=== PATIENT | male | born 1945 | race Caucasian/White ===

== ENCOUNTER 2023-05-26 13:48 | Emergency (ER) | payer MEDICARE, SELFPAY ==
--- NOTE | 2023-05-26 13:57 | XR_ITS ---
[facility] [id number] Patient Name: OLMAN ROYAL MRN: [id number] date: 1945 Sex: M Assigned Patient Location: ER Current Patient Location: ER Accession/Order Number: [id number] Exam Date: 05/26/2023 14:06 Report Date: 05/26/2023 14:40 At the request of: VIRGIL SNYDER Procedure: XR hand LT min 3V STUDY: XR hand LT min 3V, [id number] HISTORY: puncture wound COMPARISON: None FINDINGS: No acute fracture, dislocation, or suspicious osseous lesion. BB-marker projects over the first metacarpal. No associated osseous abnormality or radiopaque foreign body. Severe osteoarthritis of the first carpometacarpal joint. 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 XR/XR hand LT min 3V IMPRESSION: No acute osseous abnormality. Electronically authenticated by: NONI ESTES Date: 05/26/2023 14:40
[2023-05-26 13:59] VITALS: BP 180/69; PULSE 85; RESP 18; TEMP 36.8; O2SAT 98; BMI 25.9
--- NOTE | 2023-05-26 15:35 | ED.WOUNDLAC1 ---
HPI - Wound/Laceration General Chief Complaint: Wound/Laceration Stated Complaint: LACERATION, LEFT HAND Time Seen by Provider: 05/26/23 13:57 Source: patient Mode of arrival: walk-in Limitations: no limitations History of Present Illness HPI narrative: 77-year-old male presents for puncture wound to the palm of his left hand. He was using a power drill and the drill slipped and the drill bit went into the palm of his hand. This happened a few hours ago. He has some slight numbness on the ulnar side of his ring finger. It was not like that initially. No other injury was sustained. The pain is mild to moderate. Related Data Previous Rx's Medication Instructions Recorded amoxicillin 875 mg-potassium 1 tab PO BID #20 tabs 05/26/23 clavulanate 125 mg tablet Allergies Allergy/AdvReac Type Severity Reaction Status Date / Time No Known Drug Allergies Allergy Verified 05/26/23 13:58 Review of Systems ROS Narrative A ten point review of systems is negative except as noted above. PFSH PFS Social History Smoking status: Current every day smoker Exam Narrative Exam Narrative: Nurses note and vital signs reviewed and patient is not hypoxic. General: The patient appears well and in no apparent distress. Patient is resting comfortably on cart. Skin: Warm, dry, no pallor noted. There is no rash noted. Head: Normocephalic, atraumatic Eye: Normal conjunctiva, no drainage Ears, Nose, Mouth, and Throat: oral mucosa is moist. Nares patent. Mouth without vesicles. Cardiovascular: Regular Rate and Rhythm Respiratory: Patient is in no distress, no accessory muscle use, lungs are clear to auscultation, no wheezing, rales or rhonchi Back: non-tender GI: nontender Musculoskeletal: puncture wound present on the ulnar his left hand proximally just medial to the hypothenar eminence. Fingers have full range of motion and wrist is nontender and has full range of motion. Neurological: A&O, normal speech Psychiatric: Cooperative Constitutional Vital Signs, click to edit/add: Last Vital Signs Temp 98.2 F 05/26/23 13:59 Pulse 85 05/26/23 13:59 Resp 18 05/26/23 13:59 BP 180/69 H 05/26/23 13:59 Pulse Ox 98 05/26/23 13:59 O2 Del Method Room Air 05/26/23 13:59 Course Vital Signs Vital signs: Vital Signs Temperature 98.2 F 05/26/23 13:59 Pulse Rate 85 05/26/23 13:59 Respiratory Rate 18 05/26/23 13:59 Blood Pressure 180/69 H 05/26/23 13:59 Pulse Oximetry 98 05/26/23 13:59 Oxygen Delivery Method Room Air 05/26/23 13:59 Temperature 98.2 F 05/26/23 13:59 Pulse Rate 85 05/26/23 13:59 Respiratory Rate 18 05/26/23 13:59 Blood Pressure 180/69 H 05/26/23 13:59 Pulse Oximetry 98 05/26/23 13:59 Oxygen Delivery Method Room Air 05/26/23 13:59 MDM - Wound/Laceration MDM Narrative Medical decision making narrative: puncture wound identified with negative x-ray. Tetanus is updated and he is prescribed Augmentin. He will watch for signs of an infection. He was advised that the numbness in the ring finger will likely subside but he'll follow-up with his doctor. Treatment diagnosis and follow-up were discussed with the patient. Differential Diagnosis Differential diagnosis: Likely laceration and other (puncture wound, fracture) Imaging Data left hand: Radiologist's impression: Procedure: XR hand LT min 3V STUDY: XR hand LT min 3V, [id number] HISTORY: puncture wound COMPARISON: None FINDINGS: No acute fracture, dislocation, or suspicious osseous lesion. BB-marker projects over the first metacarpal. No associated osseous abnormality or radiopaque foreign body. Severe osteoarthritis of the first carpometacarpal joint. 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 IMPRESSION: No acute osseous abnormality. Electronically authenticated by: NONI ESTES Date: 05/26/2023 14:40 Discharge Plan Discharge Chief Complaint: Wound/Laceration Clinical Impression: Puncture wound Patient Disposition: Home, Self-Care Time of Disposition Decision: 15:33 Condition: Good Mode of Transportation: Private Vehicle Prescriptions / Home Meds: New amoxicillin-pot clavulanate 875-125 mg tablet 1 tab PO BID Qty: 20 0RF Instructions: Puncture Wound (ED) Stand Alone Forms: Portal Instructions Referrals: Dallin Pace DO [Primary Care Provider] - 1 week
[2023-05-26] MEDS: ADACEL DIPH,PERTUSS(ACELL),TET VAC/PF 0.5 ML ADULT SYRINGE IM (15:44)
--- NOTE | 2023-05-26 15:59 | PC.NURSE ---
Addendum entered by Lakia Armas 05/26/23 16:01: unknown when last tetnus is. patient has slight numbess to finger. warm. cap refill 2 seconds. Original Note: Patient was putting nails into a piece of wood when he slipped and the drill bit when into his left palm. fatty tissue can be seen. patient states he immediatly washed it with soap and water. no
== END 2023-05-26 16:04 | disposition home or self-care (01) ==
PROVIDERS: Emergency Provider Emergency Medicine; PCP Internal Medicine
DX: S61.432A Puncture wound without foreign body of left hand, initial encounter (principal); Z23 Encounter for immunization; W29.8XXA Contact with other powered hand tools and household machinery, initial encounter; F17.210 Nicotine dependence, cigarettes, uncomplicated
CPT/HCPCS: 73130; 90471; 90715; 99283

== ENCOUNTER 2023-07-15 09:16 | Outpatient (OUT) | payer MEDICARE, SELFPAY ==
[2023-07-15 10:14] LABS: Estimated Average Glucose 177 mg/dL; Glycohemoglobin A1C 7.8 % (4.5-6.2)
== END 2023-07-15 09:17 | disposition home or self-care (01) ==
LOC: LAB 09:17
PROVIDERS: PCP Internal Medicine; Visit Provider Internal Medicine
DX: E11.65 Type 2 diabetes mellitus with hyperglycemia (principal)
CPT/HCPCS: 36415; 83036

== ENCOUNTER 2024-01-15 08:37 | Outpatient (OUT) | payer MEDICARE, SELFPAY ==
[2024-01-15 08:57] LABS: Basophils Absolute Auto 0.1 10^3/uL (0.0-0.1); Basophils Percent Auto 1.1 % (0.2-2.0); Eosinophils Absolute Auto 0.3 10^3/uL (0.0-0.7); Eosinophils Percent Auto 4.5 % (0.9-7.0); Hematocrit 37.7 % (42.0-54.0); Hemoglobin 12.1 g/dL (14.0-18.0); Lymphocytes Absolute Auto 2.2 10^3/uL (1.2-3.8); Lymphocytes Percent Auto 33.8 % (20.5-60.0); Mean Corpuscular HGB Conc 32.1 g/dL (29.9-35.2); Mean Corpuscular Hemoglobin 31.2 pg (25.9-34.0); Mean Corpuscular Volume 97.2 fL (80.0-94.0); Mean Platelet Volume 11.1 fL (9.5-13.5); Monocytes Absolute Auto 0.7 10^3/uL (0.3-0.8); Monocytes Percent Auto 10.2 % (1.7-12.0); Neutrophils Absolute Auto 3.3 10^3/uL (1.4-6.5); Neutrophils Percent Auto 50.4 % (43.0-75.0); Platelet Count 158 10^3/uL (150-450); Red Blood Count 3.88 10^6/uL (4.70-6.10); Red Cell Distribution Width 12.7 % (11.0-15.0); White Blood Count 6.5 10^3/uL (4.0-11.0)
[2024-01-15 09:28] LABS: Creatinine Urine Random 209.77 mg/dL (20.00-300.00); Microalbum Creatinine Ratio Ur 18.5 mg/g (0.0-29.9); Microalbumin Urine Random 3.9 mg/dL (<=30.0)
[2024-01-15 09:34] LABS: Alanine Aminotransferase 31 U/L (16-63); Albumin Globulin Ratio 0.9; Albumin Level 3.5 g/dL (3.4-5.0); Alkaline Phosphatase 113 U/L (46-116); Anion Gap 13.3; Aspartate Amino Transferase 25 U/L (15-37); BUN Creatinine Ratio 25.2; Bilirubin Total 0.5 mg/dL (0.2-1.0); Calcium 8.9 mg/dL (8.5-10.1); Carbon Dioxide 25.3 mmol/L (21.0-32.0); Chloride 104 mmol/L (98-107); Cholesterol 160 mg/dL (<=200); Estimated GFR (African America >60 (>=60); Estimated GFR (Non-African Ame 51 (>=60); Glucose 129 mg/dL (74-106); HDL Cholesterol 40 mg/dL (40-60); Potassium 4.6 mmol/L (3.5-5.1); Sodium 138 mmol/L (136-145); Total Protein 7.5 g/dL (6.4-8.2); Triglycerides 183 mg/dL (<=150); VLDL CHOLESTEROL 36.6 mg/dL
[2024-01-15 10:43] LABS: Estimated Average Glucose 183 mg/dL
[2024-01-15 10:52] LABS: Prostate Specific Antigen Scrn 2.25 ng/mL (<=4.00)
== END 2024-01-15 08:38 | disposition home or self-care (01) ==
LOC: LAB 08:37
PROVIDERS: PCP Internal Medicine; Visit Provider Internal Medicine
DX: I25.10 Atherosclerotic heart disease of native coronary artery without angina pectoris (principal); I10 Essential (primary) hypertension; E78.00 Pure hypercholesterolemia, unspecified; E11.65 Type 2 diabetes mellitus with hyperglycemia; Z12.5 Encounter for screening for malignant neoplasm of prostate
CPT/HCPCS: 36415; 80053; 80061; 82043; 82570; 83036; 85025; G0103

== ENCOUNTER 2024-07-26 12:03 | Outpatient (OUT) | payer MEDICARE, SELFPAY ==
--- OUTSIDE RECORDS SUMMARY | 2024-07-26 12:27 | XMS_ITS | CCD ---
Author Organization [facility] Team Providers Care Extrusion Supervisor Name Role Phone DALLIN PACE Primary Care Physician Dallin Pace Unavailable SANJEEV, DR ZAMARRIPA Admitting Unavailable SANJEEV, DR ZAMARRIPA Attending Unavailable SANJEEV, DR ZAMARRIPA Primary Care Unavailable SANJEEV, DR ZAMARRIPA Consulting Unavailable SANJEEV, DR ZAMARRIPA Primary Care Unavailable SANJEEV, DR ZAMARRIPA Admitting Unavailable SANJEEV, DR ZAMARRIPA Attending Unavailable SANJEEV, DR ZAMARRIPA Consulting Unavailable SANJEEV, DR ZAMARRIPA Admitting Unavailable SANJEEV, DR ZAMARRIPA Attending Unavailable SANJEEV, DR ZAMARRIPA Primary Care Unavailable SANJEEV, DR ZAMARRIPA Consulting Unavailable MACARENA, DR SHILPI Katz Consulting Unavailable SANJEEV, DR ZAMARRIPA Admitting Unavailable SANJEEV, DR ZAMARRIPA Attending Unavailable SANJEEV, DR ZAMARRIPA Primary Care Unavailable SANJEEV, DR ZAMARRIPA Consulting Unavailable Dallin Pace E Unavailable Unavailable Unavailable Dr. Jeyson Huang Referring Unavailable Sal, Dr. Watkins Attending Unavailable Sanjeev, Dr. Dallin Goode Primary Care UnaDallin Trammell DO Primary Care Provider DALLIN Rondon Primary Care Unavailable JEYSON HUANG Referring Unavailable JEYSON HUANG Referring Unavailable DALLIN PACE Primary Care Unavailable JEYSON HUANG Referring Unavailable DALLIN PACE Primary Care Unavailable JEYSON HUANG Referring Unavailable DALLIN PACE Primary Care Unavailable JEYSON HUANG Referring Unavailable DALLIN PACE Primary Care Unavailable JEYSON HUANG Referring Unavailable DALLIN PACE Primary Care Unavailable JEYSON HUANG Attending Unavailable DALLIN PACE Primary Care Unavailable Dallin Pace Primary Care Unavailable Ruy Macias Attending Unavailable Ruy Macias Admitting Unavailable Medications Current Medications Medication Drug Class(es) Dates Sig (Normalized) Sig (Original) Accu-Chek Advantage Meter (7 sources) Start: 12-10-2022 Accu-Chek Advantage Meter Dec, Active [id number] 200 actuat albuterol 0.09 mg/actuat metered dose inhaler (12 sources) beta2-Adrenergic Agonist Start: 02-27-2024 Albuterol Sulfate 90 mcg/actuation HFA aerosol inhaler Active 0 .ROUTE .COMPLEX 51 February 27, 2024 6:27am USE 2 INHALATIONS BY MOUTH EVERY 4 HOURS NEEDED Start: 02-27-2024 Albuterol Sulf ate Active 0 .ROUTE .COMPLEX 51 February 27, 2024 7:27am USE 2 INHALATIONS BY MOUTH EVERY 4 HOURS NEEDED Start: 01-20-2024 End: 02-27-2024 take 1 puff(s) by inhalation every four hours as needed Albuterol Sulfate 90 mcg/actuation HFA aerosol inhaler Discontinued 2 PUFF INHALATION Every 4 hours as needed January 19, 2024 11:00pm February 27, 2024 6:27am Start: 10-06-2023 take 2 puff(s) by in halation every four hours as needed Albuterol Sulfate HFA 108 (90 Base) MCG/ACT 2 puffs as needed Inhalation every 4 hrs for 90 days Sep, Active albuterol HFA 90 mcg/inh MDI (1 source) Start: 12-07-2021 take 2 puff(s) by inhalation every four hours as needed for wheezing albuterol HFA 90 mcg/inh MDI 2 puff(s), Inhalation, q4hr as needed for wheezing, Refill(s) 0 Start Date: 12/07/21 Status: Ordered aspirin 81 mg chewable tablet (8 sources) Platelet Aggregation Inhibitor, Nonsteroidal Anti-inflammatory Drug Start: 06-01-2024 take 1 tablet by mouth once daily Aspirin 81 mg tablet,chewable Active 81 MG PO Daily May 31, 2024 11:00pm Start: 12-12-2021 take 1 tablet by patrice th once daily aspirin 81 mg Oral EC Tab 81 mg = 1 tab(s), Oral, Daily, Refills(s) 0 Start Date: 12/12/21 Status: Ordered take 1 tablet by patrice th once daily Aspirin 81 MG Oral Tablet Delayed Release TAKE 1 TABLET DAILY. Quantity: 90 Refills: 0 Ordered: 05-May-2023 DO Active atorvastatin 40 mg oral tablet (20 sources) HMG-CoA Reductase Inhibitor Start: 11-06-2023 take 1 tablet by mouth once daily Atorvastatin 40 mg tablet Active 0 .ROUTE .COMPLEX 90 November 06, 2023 7:11pm TAKE 1 TABLET BY MOUTH DAILY Start: 11-06-2023 End: 11-06-2023 take 1 tablet by mouth once daily Atorvastatin 40 mg tablet Discontinued 40 MG PO Daily November 06, 2023 12:00am November 06, 2023 7:11pm Start: 12-07-2021 take 1 tablet by patrice th once daily Lipitor 40 mg Tab 40 mg = 1 tab(s), Oral, Daily, Refills(s) 0 Start Date: 12/07/21 Status: Ordered Flonase 0.05 mg/inh nasal spray (1 source) Start: 12-07-2021 Flonase 0.05 m g/inh nasal spray 2 spray(s), Nasal, Daily, Refill(s) 0 Start Date: 12/07/21 Status: Ordered fluticasone propionate 0.05 mg/actuat metered dose nasal spray (19 sources) Corticosteroid Start: 01-20-2024 Fluticasone Pr opionate 50 mcg/actuation spray,suspension Active 1 SPRAY INTRANASAL Daily January 19, 2024 11:00pm take 1 spray(s) nasal route once daily Fluticasone Propionate 50 MCG/ACT 1 spray in each nostril Nasally Once a day for 90 days Active take 1 spray(s) nasal route once daily Fluticasone Propionate 50 MCG/ACT 1 spray in each nostril Nasally Once a day Active take 2 spray(s) nasal route once daily Flonase Allergy Relief 50 MCG/ACT Nasal Suspension USE 2 SPRAYS IN EACH NOSTRIL ONCE DAILY Quantity: 0 Refills: 0 Ordered: 05-May-2023 DO Active Insulin Lispro (1 source) Insulin Analog Start: 12-07-2021 Humalog Mix 75 /25 See Instructions, Refill(s) 0, 60 units before breakfast and 48 units before dinner Start Date: 12/07/21 Status: Ordered insulin lispro 25 unt/ml / insulin lispro protamine, human 75 unt/ml injectable suspension (20 sources) Insulin Analog Start: 01-20-2024 End: 03-01-2024 Insulin Lispro Protamin-Lispro (Humalog Mix 75-25(U-100)Insuln) 100 unit/mL (75-25) suspension Active 0 .ROUTE .COMPLEX 100 March 01, 2024 5:49am INJECT 60 UNITS SUBCUTANEOUSLY BEFORE BREAKFAST AND 48 UNITS BEFORE EVENING MEAL HumaLOG Mix 75/2 5 (75-25) 100 UNIT/ML INJECT 60 UNITS UNDER THE SKIN BEFORE BREAKFAST AND 48 UNITS BEFORE EVENING MEAL Active HumaLOG Mix 75/2 5 KwikPen (75-25) 100 UNIT/ML Subcutaneous Suspension Pen-injector USE DIRECTED. Quantity: 0 Refills: 0 Ordered: 05-May-2023 DO Active lisinopril 20 mg oral tablet (20 sources) Angiotensin Converting Enzyme Inhibitor Start: 11-06-2023 take 1 tablet by mouth once daily Lisinopril 20 mg tablet Active 0 .ROUTE .COMPLEX 90 November 06, 2023 7:11pm TAKE 1 TABLET BY MOUTH DAILY Start: 11-06-2023 End: 11-06-2023 take 1 tablet by mouth once daily Lisinopril 20 mg tablet Discontinued 20 MG PO Daily November 06, 2023 12:00am November 06, 2023 7:11pm Start: 12-07-2021 take 1 tablet by patrice th once daily lisinopril 20 mg Tab 20 mg = 1 tab(s), Oral, Daily, Refills(s) 0 Start Date: 12/07/21 Status: Ordered metFORMIN hydrochloride 1000 mg oral tablet (20 sources) Biguanide Start: 07-10-2024 take 1 tablet by mouth twice daily Metformin 1,000 mg tablet Active 0 .ROUTE .COMPLEX 180 July 10, 2024 6:50am TAKE 1 TABLET BY MOUTH TWICE DAILY Start: 01-20-2024 End: 07-10-2024 take 1 tablet by mouth twice daily Metformin 1,000 mg tablet Discontinued 1000 MG PO Twice daily January 19, 2024 11:00pm July 10, 2024 6:50am Start: 12-07-2021 take 1 tablet by patrice th twice daily metformin 1000 mg oral tablet 1,000 mg = 1 tab(s), Oral, BID, Refills(s) 0 Start Date: 12/07/21 Status: Ordered metoprolol tartrate 50 mg oral tablet (20 sources) beta-Adrenergic Nery Start: 07-10-2024 take 1 tablet by mouth twice daily at mealtime Metoprolol Tartrate 50 mg tablet Active 0 .ROUTE .COMPLEX 180 July 10, 2024 6:50am TAKE 1 TABLET BY MOUTH TWICE DAILY WITH FOOD Start: 01-20-2024 End: 07-10-2024 take 1 tablet by mouth twice daily Metoprolol Tartrate 50 mg tablet Discontinued 50 MG PO Twice daily January 19, 2024 11:00pm July 10, 2024 6:50am Start: 12-07-2021 take 1 tablet by [facility] every twelve hours Metoprolol Tartrate 50 MG 1 tablet with food Orally Twice a day Sep, Active omeprazole 40 mg Cap-DR (1 source) Start: 12-07-2021 take 1 capsule by mouth once daily omeprazole 40 mg Cap-DR 40 mg = 1 cap(s), Oral, Daily, Refills(s) 0 Start Date: 12/07/21 Status: Ordered Omeprazole 40 mg capsule,delayed release(DR/EC) (1 source) Start: 07-10-2024 take 1 capsule by mouth once daily before breakfast Omeprazole 40 mg capsule,delayed release(DR/EC) Active 0 .ROUTE .COMPLEX July 10, 2024 6:50am TAKE 1 CAPSULE BY MOUTH ONCE DAILY 1/2 HOUR BEFORE BREAKFAST tamsulosin hydrochloride 0.4 mg oral capsule (20 sources) alpha-Adrenerg ic Nery Start: 10-29-2023 End: 10-29-2023 take 1 capsule by mouth once daily Tamsulosin 0.4 mg capsule Active 0.4 MG PO Daily 90 October 29, 2023 1:21pm Start: 12-07-2021 take [address] capsule [address] [facility] every twenty-four hours Tamsulosin HCl 0.4 MG 1 capsule Orally Once a day for 90 days Sep, Active Vitamin D 1000 intl units (25 mcg) Tab (1 source) Start: 12-12-2021 take 1 tablet by mouth once daily Vitamin D 1000 intl units (25 mcg) Tab 25 mcg = 1 tab(s), Oral, Daily, Refills(s) 0 Start Date: 12/12/21 Status: Ordered Completed/Discontinued Medications Medication Drug Class(es) Dates Sig (Normalized) Sig (Original) amLODIPine 5 mg oral tablet (20 sources) Dihydropyridine Calcium Channel Nery Start: 11-06-2023 End: 06-01-2024 take 1 tablet by mouth once daily Amlodipine 5 mg tablet Discontinued 0 .ROUTE .COMPLEX 90 November 06, 2023 7:11pm June 01, 2024 8:46am TAKE 1 TABLET BY MOUTH DAILY Start: 11-06-2023 End: 11-06-2023 take 1 tablet by mouth once daily Amlodipine 5 mg tablet Discontinued 5 MG PO Daily November 06, 2023 12:00am November 06, 2023 7:11pm Start: 12-07-2021 [facility] amL[facility]ine 5 mg Tab 5 mg = 1 tab(s), Oral, Daily, Refills(s) 0 Start Date: 12/07/21 Status: Ordered cholecalciferol 0.025 mg oral capsule (3 sources) Vitamin D take 1 capsule by mouth once daily Vitamin D3 1000 UNIT Oral Capsule TAKE 1 CAPSULE BY MOUTH ONCE A DAY Quantity: 0 Refills: 0 Ordered: 05-May-2023 DO Active docosahexaenoic acid 120 mg / eicosapentaenoic acid 180 mg oral capsule (3 sources) take 1 capsule by mouth once daily [place]-3 Fish Oil 1000 MG Oral Capsule TAKE 1 CAPSULE Daily Quantity: 0 Refills: 0 Ordered: 05-May-2023 DO Active ferrous sulfate 325 mg oral tablet (3 sources) take 1 tablet by mouth once daily Ferrous Sulfate 325 (65 Fe) MG Oral Tablet TAKE 1 TABLET BY MOUTH EVERY DAY Quantity: 90 Refills: 0 Ordered: 05-May-2023 DO Active Magnesium (3 sources) Magnesium 500 MG TABS one daily Quantity: 0 Refills: 0 Ordered: 05-May-2023 DO Active omeprazole 40 mg delayed release oral capsule (19 sources) Proton Pump Inhibitor Start: 01-20-20 End: 07-10-20 24 take 1 capsule by mouth once daily Omeprazole 40 mg capsule,delayed release(DR/EC) Discontinued 40 MG PO Daily January 19, 2024 11:00pm July 10, 2024 6:50am Start: 09-12-2022 take 1 capsule by mo [facility] once daily Omeprazole 40 MG 1 capsule 30 minutes before morning meal Orally Once a day Sep, Active potassium 99 mg extended release oral tablet (3 sources) take 1 tablet by mouth once daily Potassium 99 MG Oral Tablet TAKE 1 TABLET DAILY. Quantity: 0 Refills: 0 Ordered: 05-May-2023 DO Active ubidecarenone 200 mg oral capsule (3 sources) take 1 capsule by mouth once daily CoQ10 200 MG Oral Capsule TAKE ONE SOFTGEL BY MOUTH ONCE DAILY Quantity: 90 Refills: 3 Ordered: 05-May-2023 DO Active vitamin b12 1 mg extended release oral tablet (3 sources) Vitamin B12 take 1 tablet by mouth once daily Vitamin B12 1000 MCG Oral Tablet Extended Release TAKE 1 TABLET DAILY DIRECTED. Quantity: 0 Refills: 0 Ordered: 05-May-2023 DO Active Vitamin C TABS (3 sources) Vitamin C TABS T JOYCE 1 TABLET DAILY. Quantity: 0 Refills: 0 Ordered: 05-May-2023 DO Active zinc gluconate 50 mg oral tablet (3 sources) take 1 tablet by mouth once daily Zinc 50 MG Oral Tablet TAKE 1 TABLET DAILY. Quantity: 0 Refills: 0 Ordered: 05-May-2023 DO Active Problems Active Problems Problem Classification Problem Date Documented Da te Episodic/Chronic Aortic; peripheral; and visceral artery aneurysms (20 sources) Abdominal aortic aneurysm; Translations: [Aneurysm of infrarenal abdominal aorta ] Onset: 04-20-2022 12-07-2021 Chronic Comment on above: Abdominal US: 2.9cm - 06/2024 Asthma (16 sources) Asthma; Translations: [Mild intermittent asthma] Onset: 07-02-2023 12-07-2021 Chronic Chronic kidney disease (2 sources) Chronic kidney disease; Translations: [Chronic kidney disease, unspecified] 07-26-2024 Chronic Chronic kidney disease (2 sources) Chronic kidney disease; Translations: [Chronic kidney disease, stage 3a (Multi)] Onset: 04-26-2024 Conditions associated with dizziness or vertigo (4 sources) Dizziness and giddiness; Translations: [Dizziness and giddiness] Onset: 04-26-2024 Episodic Coronary atherosclerosis and other heart disease (20 sources) Coronary arteriosclerosis; Translations: [Atherosclerotic heart disease of [place] coronary artery without angina pectoris] Onset: 02-27-2019 12-07-2021 Chronic Deficiency and other anemia (4 sources) Pernicious anemia; Translations: [Vitamin B12 deficiency anemia due to intrinsic factor deficiency] Onset: 07-02-2023 12-07-2021 Episodic Deficiency and other anemia (12 sources) Anemia; Translations: [Anemia, unspecified] Episodic Diabetes mellitus with complications (20 sources) Type 2 diabetes mellitus; Translations: [Type 2 diabetes mellitus with diabetic polyneuropathy] Onset: 01-15-2023 Chronic Diabetes mellitus without complication (18 sources) Diabetes mellitus; Translations: [Type 2 diabetes mellitus] Onset: 12-29-2019 12-07-2021 Chronic Disorders of lipid metabolism (20 sources) Pure hypercholesterolemi a; Translations: [Pure hypercholesterolemi a, unspecified] Onset: 12-29-2019 12-07-2021 Chronic Esophageal disorders (12 sources) Gastro-esophageal reflux disease with esophagitis; Translations: [Gastroesophageal reflux disease] Onset: 07-02-2023 12-07-2021 Chronic Esophageal disorders (11 sources) Esophageal disorders; Translations: [Gastroesophageal reflux disease with esophagitis without hemorrhage] Onset: 07-02-2023 Essential hypertension (20 sources) Hypertensive disorder; Translations: [Essential hypertension] Onset: 02-27-2019 12-07-2021 Chronic Genitourinary symptoms and ill-defined conditions (14 sources) Polyuria; Translations: [Polyuria] Episodic Hyperplasia of prostate (17 sources) Nocturia due to benign prostatic hypertrophy; Translations: [Lower urinary tract symptoms due to benign prostatic hypertrophy] Onset: 07-02-2023 12-07-2021 Chronic Occlusion or stenosis of precerebral arteries (7 sources) Bilateral carotid artery occlusion; Translations: [Occlusion and stenosis of bilateral carotid arteries] 06-01-2024 Chronic Comment on above: Carotid US: right 50 -69%, left <50% - 05/2024 Other aftercare (12 sources) Long-term current use of insulin; Translations: [steam hand (current) use of insulin] Episodic Other aftercare (6 sources) half-way (current) use of insulin; Translations: [TORPEDO MAN 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 INSULIN] Onset: 09-04-2022 Episodic Other aftercare (2 sources) Long-term current use of drug therapy; Translations: [Other data entry assistant (current) drug therapy] Episodic Other aftercare (2 sources) Other data entry assistant (current) drug therapy; Translations: [Other data entry assistant (current) drug therapy] Onset: 04-26-2024 Episodic Other and unspecified benign neoplasm (18 sources) History of polyp of colon; Translations: [Personal history of colonic polyps] Onset: 12-12-2021 Episodic Other injuries and conditions due to external causes (2 sources) History of fall; Translations: [History of falling] Episodic Other nutritional; endocrine; and metabolic disorders (4 sources) Hypomagnesemia; Translations: [Hypomagnesemia] Onset: 07-02-2023 12-07-2021 Chronic Other nutritional; endocrine; and metabolic disorders (2 sources) Body mass index 25-29 - overweight; Translations: [Overweight] Onset: 07-02-2023 12-12-2021 Episodic Other nutritional; endocrine; and metabolic disorders (14 sources) Overweight; Translations: [Overweight] Episodic Other nutritional; endocrine; and metabolic disorders (3 sources) Overweight in adulthood with body mass index of 25 or more but less than 30; Translations: [Overweight] Episodic Other screening for suspected conditions (not mental disorders or infectious disease) (5 sources) Encounter for screening for malignant neoplasm of prostate; Translations: [Patient encounter status] Episodic Residual codes; unclassified (20 sources) Obstructive sleep apnea syndrome; Translations: [Obstructive sleep apnea (adult) (pediatric)] Onset: 07-02-2023 12-07-2021 Chronic Residual codes; unclassified (4 sources) Obstructive sleep apnea (adult) (pediatric); Translations: [Obstructive sleep apnea (adult)(pediatric)] Chronic Residual codes; unclassified (2 sources) Family history of ischemic heart disease and other diseases of the circulatory system; Translations: [Family history of ischemic heart disease and other diseases of the circulatory system] Onset: 04-26-2024 Episodic Residual codes; unclassified (2 sources) Other specified health status; Translations: [Other specified health status] Onset: 04-26-2024 Episodic Unclassified (1 source) Abdominal aortic aneurysm, without rupture, unspecified (CMS-HCC); Translations: [Abdominal aortic aneurysm, without rupture, unspecified (CMS-HCC)] Onset: 07-02-2023 Unclassified (1 source) Abdominal aortic aneurysm, without rupture, unspecified; Translations: [Abdominal aortic aneurysm, without rupture, unspecified] Onset: 06-15-2024 Past or Other Problems Problem Classification Problem Date Documented Da te Episodic/Chronic Deficiency and other anemia (5 sources) Anemia, unspecified; Translations: [ANEMIA UNSPECIFIED] Onset: 02-21-2022 Episodic Inflammatory conditions of male genital organs (2 sources) Acute prostatitis; Translations: [Acute prostatitis] Resolved: 03-18-2022 Episodic Nonspecific chest pain (3 sources) Chest discomfort; Translations: [Other chest pain] Onset: 06-24-2023 Episodic Unclassified (4 sources) Infrarenal abdominal aortic aneurysm (AAA) without rupture I71.43 Unclassified (3 sources) Patient status finding; Translations: [Patient new to provider] Unclassified (3 sources) Never smoked tobacco; Translations: [Never a smoker] Unclassified (1 source) Abdominal aortic aneurysm, without rupture, unspecified (CMS-HCC); Translations: [Abdominal aortic aneurysm, without rupture, unspecified (CMS-HCC)] Onset: 04-26-2024 Results Test Name Value Interpretation Reference Range Facility US aortaon 06-15-2024 US aorta [facility] [address] [place] [address] Ultrasound Report Signed Patient: Olman Hamlin MR#: [id number] : 1945 Acct:[id number] Age/Sex: 78 / M ADM Date: 06/15/24 Loc: [facility] Room: Type: [facility] Attending Dr: Ruy Macias MD Ordering Provider: Ruy Macias MD Date of Service: 06/15/24 US/US aorta: I71.4 Copies to: Ruy Macias MD ULTRASOUND OF THE ABDOMINAL AORTA: CLINICAL INFORMATION: History of known abdominal aortic aneurysm COMPARISON : None TECHNIQUE AND FINDINGS: Multiple ultrasonographic scans of the abdominal aorta were obtained and show mildly abnormal aorta Following measurement were obtained: Proximal height: 2.44 cm width : 2.3 Mid height: 2.08 cm width : 1.7 Distal height: 2.92 cm width : 2.5 Bilateral common iliac arteries measure 1.0 in height and 1.2 in width on the right and 1.5 in height and 1.1 in width on the left US/US aorta IMPRESSION: 2.9 CM INFRARENAL ABDOMINAL AORTA. THIS IS AT THE UPPER LIMITS OF NORMAL AND IMAGES SUGGEST MILD ANEURYSMAL CHANGE Impression dictated by: Ruy Macias M.D.06/15/2024 10:36 AM Dictation Location: [place] [address] Tech: Sandra Ha Transcribed By: CATA 06/15/24 1036 Dictated By: Ruy Macias MD 06/15/24 1034 Signed By: 06/15/24 1036 Normal [facility] US CAROTID ARTERY DUPLE X BILATERALon 05-24-2024 [facility] US CAROTID ARTERY DUPLEX BILATERAL [facility] [address] [place] [address], [address], [place] [address] Vascular Lab Report [facility] US CAROTID ARTERY DUPLEX BILATERAL Patient Name: OLMAN HAMLIN Reading Physician: [id number] Rafaela Villagomez MD, [facility] Study Date: 05/24/2024 Ordering Provider: [id number] JEYSON HUANG MRN/PID: [id number] Fellow: Technologist: Makayla Smalls RD, [facility] Date of /Age: 11 1945 / 78 years Technologist 2: Gender: M Admission Status: Outpatient Location Performed: [facility] Diagnosis/ICD: Dizziness and giddiness-R42 Indication: Diabetes, HTN, Hyperlipidemia, CAD, AAA, MARIA T, Overweight CPT Codes: 33265 Cerebrovascular Carotid Duplex scan complete CONCLUSIONS: Right Carotid: Findings are consistent with 50 to 69% stenosis of the right proximal internal carotid artery. Laminar flow seen by color Doppler. Right external carotid artery appears patent with no evidence of stenosis. No evidence of hemodynamically significant stenosis of the right common carotid artery. The right vertebral artery is patent with antegrade flow. Left Carotid: Findings are consistent with less than 50% stenosis of the left proximal internal carotid artery. Laminar flow seen by color Doppler. Left external carotid artery appears patent with no evidence of stenosis. No evidence of hemodynamically significant stenosis of the left common carotid artery. The left vertebral artery is patent with antegrade flow. Imaging & Doppler Findings: Right Plaque Morph: The proximal right internal carotid artery demonstrates irregular and calcified plaque. The proximal right external carotid artery demonstrates irregular and calcified plaque. The distal right common carotid artery demonstrates irregular and calcified plaque. Left Plaque Morph: The proximal left internal carotid artery demonstrates irregular and calcified plaque. Right Left PSV EDV PSV EDV 66 cm/s 11 cm/s CCA P 182 cm/s 17 cm/s 54 cm/s 11 cm/s CCA M 97 cm/s 11 cm/s 59 cm/s 13 cm/s CCA D 72 cm/s 14 cm/s 66 cm/s 15 cm/s ICA P 77 cm/s 24 cm/s 103 cm/s 28 cm/s ICA M 105 cm/s 30 cm/s 174 cm/s 38 cm/s ICA D 103 cm/s 30 cm/s 81 cm/s ECA 82 cm/s 36 cm/s Vertebral 47 cm/s Right Left ICA/CCA Ratio 1.1 1.1 [id number] Rafaela Villagomez MD, FACC Final [facility] NUCLEAR STRESS TESTon 2022 NUCLEAR STRESS TEST Interpreted By: Rafaela Villagomez, Buffy Noel STUDY: MYOCARDIAL PERFUSION STRESS TEST WITH EXERCISE CONVERTED TO LEXISCAN Performing facility: [facility], [address] [place] [address], [address] Provider: Jeyson Huang MD, [facility] PCP: Dr. Cecil Pace Supervising provider: Rafaela Villagomez MD, [facility] INDICATION: CAD; Chest discomfort HISTORY: Gender: M; Age: 77 y/o ; Height: HT 180.3 cm cm; Weight: WT 91.173 kg kg. CAD; Diabetes; Chest Pain; HTN; Denies smoking. Cardiac catheterization on 2005. PTCA on 2005. COMPARISON: Previous nuclear testing completed [id number] at [facility]. ACCESSION NUMBER(S): [id number] ORDERING CLINICIAN: JEYSON HUANG TECHNIQUE: ONE DAY protocol. Stress injection: Date: 06-24-23, 30.6 mCi of Myoview IV at 20 seconds after rapid injection of Lexiscan. Rest injection: Date: 06-24-23, 11.8 mCi of Myoview IV at rest. The patient had a rapid injection of 0.4mg of Lexiscan IV over 10 seconds. Imaging was performed by gated tomographic technique. STRESS TEST DATA: Resting heart rate was 56 BPM. Resting blood pressure was 134/70 mmHg. The patient exercised using a Wilian exercise protocol. 6:31 minutes exercised. 81% of MPHR achieved for age. 7.70 METS achieved. Maximum heart rate was 116 BPM. Maximum blood pressure was 144/72 mmHg. DTS N/A. TREADMILL TEST TERMINATED DUE TO: Leg Pain, increased EKG artifact. Test converted to Lexiscan. TEST TERMINATED DUE TO: Protocol completed. FINDINGS: STRESS TEST RESULTS: Resting electrocardiogram revealed sinus bradycardia. The patient had no significant ECG changes with maximal stress. The patient did not have chest pains/symptoms during the procedure. There was a normal recovery phase. There were no significant dysrhythmias. Patient did not achieve 85% MPHR so test was immediately converted to Lexiscan. LEXISCAN INFUSION: The patient had a rapid injection of 0.4 mg of Lexiscan IV over 10 seconds. Resting electrocardiogram revealed normal sinus rhythm. The patient had no significant ECG changes with maximal stress. The patient did not have chest pains/symptoms during the procedure. There was a normal recovery phase. There were no significant dysrhythmias. IMAGING RESULTS: Image quality was good. Rest and stress tomographic images were reviewed and revealed normal perfusion without evidence of ischemia, myocardial infarction, or left ventricular dilatation with stress. Overall left ventricular systolic function appeared to be normal without regional wall motion abnormalities. LV ejection fraction was 60 %. TID is 0.90 and is normal. There was no evidence of attenuation artifact. IMPRESSION: Normal combined limited exercise/Lexiscan Myoview cardiac perfusion imaging stress test. No evidence of ischemia or myocardial infarction by perfusion imaging. Normal left ventricular systolic function, ejection fraction 60 %. No exercise provoked significant ischemic ECG changes or chest pain symptoms. When compared to a study from 2010, no significant interval changes were seen. Signed by: Rafaela Villagomez 06/24/2023 12:45 PM Dictation workstation: [id number] [facility] Comment on above: Order Comment: Reji Ingram elected: Belle US.doppler Aorta and Iliac a rtery - bilateralon 06-24-[address], Suite [facility], [place] [address] Vascular Lab Report Abdominal Aorta Iliac Ultrasound/IVC Ultrasound Patient Name: OLMAN LELE Sprague Physician: [id number] Rafaela Villagomez MD, [facility] Study Date: 06/24/2023 Ordering Provider: [id number] JEYSON HUANG MRN/PID: [id number] Fellow: Technologist: Makayla Smalls RDCS, T Date of /Age: 11 1945 years Technologist 2: Gender: M Admission Status: Outpatient Location Performed: [facility] Diagnosis/ICD: Essential primary hypertension-I10 Indication: AAA, CAD, GERD, HTN, Diabetes, Overweight CONCLUSIONS: Aorta/Common Iliac Arteries/IVC: There is a 3.21 x 3.0 cm infrarenal abdominal aortic aneurysm with layered thrombus and measured 3.53 cm in length, repeat study in 3 years is recommended. Imaging & Doppler Findings: AORTA AP Lateral PSV Proximal 1.52 cm 1.94 cm 1.5 cm/s Mid 3.21 cm 3.00 cm 105.0 cm/s Distal 1.63 cm 1.98 cm 97.0 cm/s RIGHT AP Lateral PSV LEANNA Proximal 0.68 cm 0.97 cm 139.00 cm/s LEFT AP Lateral PSV LEANNA Proximal 0.68 cm 1.06 cm 107.00 cm/s [id number] Rafaela Villagomez MD, FACC Final Rafaela Vallecillo M D - 06/24/[address], [address] [place] [address] Vascular Lab Report Abdominal Aorta Iliac Ultrasound/IVC Ultrasound Patient Name: OLMAN HAMLIN [place] Physician: [id number] Rafaela Villagomez MD, FACC Study Date: 06/24/2023 Ordering Provider: [id number] JEYSON HUANG MRN/PID: [id number] Fellow: Technologist: Makayla Smalls RDCS, T Date of /Age: 11 1945 years Technologist 2: Gender: M Admission Status: Outpatient Location Performed: [facility] Diagnosis/ICD: Essential primary hypertension-I10 Indication: AAA, CAD, GERD, HTN, Diabetes, Overweight CONCLUSIONS: Aorta/Common Iliac Arteries/IVC: There is a 3.21 x 3.0 cm infrarenal abdominal aortic aneurysm with layered thrombus and measured 3.53 cm in length, repeat study in 3 years is recommended. Imaging & Doppler Findings: AORTA AP Lateral PSV Proximal 1.52 cm 1.94 cm 1.5 cm/s Mid 3.21 cm 3.00 cm 105.0 cm/s Distal 1.63 cm 1.98 cm 97.0 cm/s RIGHT AP Lateral PSV LEANNA Proximal 0.68 cm 0.97 cm 139.00 cm/s LEFT AP Lateral PSV LEANNA Proximal 0.68 cm 1.06 cm 107.00 cm/s [id number] Rafaela Villagomez MD, FACC Final [facility] Work Phone: Radiology Study observation (narrative) [facility] Work Phone: US.doppler Aorta and Iliac a rtery - bilateralOrdered By: Rafaela Villagomez on 06-24-2023 [facility] Work Phone: VASC US AORTA ILIAC DUPLEX C OMPLETEon 06-24-2023 VASC US AORTA ILIAC DUPLEX COMPLETE [address], [address] [address] Vascular Lab Report Abdominal Aorta Iliac Ultrasound/IVC Ultrasound Patient Name: OLMAN HAMLIN [place] Physician: [id number] Rafaela Villagomez MD, FAC Study Date: 06/24/2023 Ordering Provider: [id number] JEYSON HUANG MRN/PID: [id number] Fellow: Technologist: Makayla Smalls RD, T Date of /Age: 11 1945 / 77 years Technologist 2: Gender: M Admission Status: Outpatient Location Performed: [facility] Diagnosis/ICD: Essential primary hypertension-I10 Indication: AAA, CAD, GERD, HTN, Diabetes, Overweight CONCLUSIONS: Aorta/Common Iliac Arteries/IVC: There is a 3.21 x 3.0 cm infrarenal abdominal aortic aneurysm with layered thrombus and measured 3.53 cm in length, repeat study in 3 years is recommended. Imaging & Doppler Findings: AORTA AP Lateral PSV Proximal 1.52 cm 1.94 cm 1.5 cm/s Mid 3.21 cm 3.00 cm 105.0 cm/s Distal 1.63 cm 1.98 cm 97.0 cm/s RIGHT AP Lateral PSV LEANNA Proximal 0.68 cm 0.97 cm 139.00 cm/s LEFT AP Lateral PSV LEANNA Proximal 0.68 cm 1.06 cm 107.00 cm/s [id number] Rafaela Villagomez MD, FACC Final [facility] Office Visit (Cardiology)on 05-05-2023 Follow-up visit Diagnoses/Problems Assessed Patient new to provider CAD (coronary artery disease) (414.00) (I25.10) Hypertension (401.9) (I10) GERD (gastroesophageal reflux disease) (530.81) (K21.9) Type 2 diabetes mellitus (250.00) (E11.9) Never a smoker Overweight with body mass index (BMI) of 28 to 28.9 in adult (278.02,V85.24) (E66.3,Z68.28) Neuropathy in diabetes (250.60,357.2) (E11.40) Orders CAD (coronary artery disease), Hypertension, Type 2 diabetes mellitus Complete Blood Count; Status:Active - Retrospective Authorization; Requested for:[id number]; Comprehensive Metabolic Panel; Status:Active - Retrospective Authorization; Requested for:[id number]; Hemoglobin A1C; Status:Active - Retrospective Authorization; Requested for:[id number]; Lipid Panel; Status:Active - Retrospective Authorization; Requested for:[id number]; Overweight with body mass index (BMI) of 28 to 28.9 in adult Healthy Weight Tips; Status:Complete - Retrospective Authorization; Done: 05May2023 IO EKG Electrocardiogram- 12 Lead; Status:Complete; Done: 05May2023 Some eating tips that can help you lose weight.; Status:Complete - Retrospective Authorization; Done: 05May2023 SocHx: Never a smoker Tobacco Use Screening; Status:Complete; Done: [id number] Patient Instructions Please bring all medicines, vitamins, and herbal supplements with you when you come to the office. Prescriptions will not be filled unless you are compliant with your follow up appointments or have a follow up appointment scheduled as per instruction of your physician. Refills should be requested at the time of your visit. Follow up in 1 year Chief Complaint OLMAN HAMLIN is being seen for establish locally, history cad, ptca, htn. History of Present Illness 77-year-old is accompanied by to the office, here to establish cardiology care. Has history of atherosclerotic [place] vessel coronary artery disease and multiple risk factors Active, clearly more than 4 METS daily, probably much more. Diabetes on insulin, Dr. Pace manages. No symptoms of hypoglycemia patient reports hemoglobin A1c 7.0 Patient denies palpitations lightheadedness presyncope syncope orthopnea PND lower extremity edema. Has not had any recent cardiac testing. Reviewed notes by primary care dated April 2023 and lab data from February 2023. Patient has some iron deficiency indices, and is on supplementation. EKG today shows normal sinus rhythm at [address] interval 162 ms QRS duration 84 ms QTc 407 ms, there is evidence of left atrial abnormality. History so far : 1. Atherosclerotic [place] vessel coronary artery disease-patient says that whenever he goes off metoprolol or forgets to take his metoprolol he can notice angina pectoris type chest discomfort original chest discomfort was bilateral shoulder and neck discomfort, but the chest discomfort he feels now when he does not take metoprolol is chest pressure sensation that comes on with activity. This is nothing new for him. As long as he is compliant with metoprolol there are no issues. 2. 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 GERD 4. Hypertension-at target 5. BPH 6. Echo December 2010-LVEF 60% mild RV dilatation normal chamber dimensions physiologic tricuspid regurgitation normal aortic root, left ventricular end-systolic diameter 3.6 cm left atrial diameter 4.5 cm RV systolic pressure 42 mmHg peak and mean gradients across aortic valve 11 and 6 respectively aortic root 3.3 cm 7. Stress perfusion November 2010 -11 minutes 37 seconds stage IV of Wilian protocol, 12.8 METS, no cardiac symptoms, [address] depression 2 3 aVF V5 and V6, no arrhythmia, LVEF 60%, no ischemia 8. Cardiac catheterization 2005-LVEF 60%, patent stent in the mid RCA, patient underwent PCI and stenting of the PLV with a 2.5 x 8 mm Cypher drug-eluting stent, LVEDP 15 mmHg, normal left main, mild disease of the LAD, mid LAD 30 to 40%, left circumflex luminal irregularities, distal RCA receives collaterals from the left circumflex artery, RCA mild to moderate disease with 80% stenosis in the posterolateral ventricular branch following a segment of aneurysm. 9. Screening abdominal aorta ultrasound April 2022-proximal aorta 2.1 x 2.8 cm, mid aorta 2.2 x 3.1 cm with fusiform dilatation , distal aorta 2.6 x 2.7 cm Assessment: Multiple cardiac risk factors Diabetic, insulin requiring Hypertension-initially above target repeat blood pressure at target Hyperlipidemia-on moderate dose of high intensity statin. Exertional angina pectoris when 2 off beta-blockers. Otherwise does more than 4 METS of activity without any symptoms Recommendations: 1. Patient has 2 not had recent 2 cardiac 2 testing for CAD progression 2 he is a diabetic. 2. Proceed with treadmill stress perfusion imaging ,may switch to lexiscan myoview as needed. 2 3. Comprehensive profile lipid profile hemoglobin A1c,cbc prior to next visit 4. Ongoing heart healthy lifestyle 5. Patient brou (more content not included)... Normal [employer] Tobacco Screening.on 023 Adult depression screening assessment No [facility] [address] DO Work Phone: Fall risk assessment a) No falls within the last year [facility] [employer] [place] [address] DO Work Phone: Tobacco use status [facility] b) No [facility] [employer] [place] [address] DO Work Phone: GLYCOHEMOGLOBIN A1Con 2022 ADA RECOMMENDATION SEE BELOW Normal [facility] Comment on above: Result Comment: ADA RECOMMENDED LIMIT 4.0 - 6.0 ADA THERAPEUTIC TARGET < 7.0 ACTION SUGGESTED > 7.0 Performed By: #### A 1C #### [facility] [address] [place] [address] Dr. Julianne Patel Glucose [Mass/Vol] 157 mg/dL Normal [facility] Comment on above: Performed By: #### A 1C #### [facility] [address] [place] [address] [address] Julianne Patel HbA1c (Bld) [Mass fraction] 7.1 % Critically high 4.5-6.2 [facility] Comment on above: Performed By: #### A 1C #### [facility] [address] [place] [address] [address] Julianne Patel GLYCOHEMOGLOBIN A1Con 2021 ADA RECOMMENDATION SEE BELOW Normal [facility] Comment on above: Result Comment: ADA RECOMMENDED LIMIT 4.0 - 6.0 ADA THERAPEUTIC TARGET < 7.0 ACTION SUGGESTED > 7.0 Performed By: #### A 1C #### [facility] [address] [place] [address] [address] Julianne Patel Glucose [Mass/Vol] 154 mg/dL Normal [facility] Comment on above: Performed By: #### A 1C #### [facility] [address] [place] [address] [address] Julianne Paetl HbA1c (Bld) [Mass fraction] 7.0 % Critically high 4.5-6.2 [facility] Comment on above: Performed By: #### A 1C #### [facility] [address] [place] [address] Dr. Julianne Patel US ABD AORTA SCREENINGon US ABD AORTA SCREENING EXAMINATION: US ABD AORTA SCREENING HISTORY: Abdominal aortic aneurysm without rupture COMPARISON: No relevant comparison available. TECHNIQUE: Ultrasound examination of the retroperitoneal area was performed, with a focused evaluation of the abdominal aorta. FINDINGS: Proximal aorta: 2.1 x 2.8 cm Mid aorta: 2.2 x 3.1 cm, fusiform dilation Distal aorta: 2.6 x 2.7 cm Right common iliac artery: 0.7 x 0.7 cm Left common iliac artery: 0.8 x 0.7 cm Mild to moderate atherosclerotic plaque IMPRESSION: Fusiform aneurysm of the mid aorta measuring up to 3.1 cm Electronically authenticated by: SHILPI FIORE Date: 2022-04-20 09:07 Normal [facility] FOLATE ([facility])on 2 Folate 13.5 ng/mL Normal >3.0 [facility] Comment on above: Result Comment: A rum folate concentration of less than 3.1 ng/mL is considered to represent clinical deficiency. Performed By: #### F OLALC #### [facility] [address] [place] [address] [address] Julianne Patel CBC AUTO DIFFon 02-21-2022 BASO # 0.1 103/ul Normal 0.0-0.1 [facility] Comment on above: Performed By: #### C BC #### [facility] [address] [place] [address] Dr. Julianne Patel Basophils/100 WBC (Bld) 1.2 % Normal 0.2-2.0 [facility] Comment on above: Performed By: #### C BC #### [facility] [address] [place] [address] Dr. Julianne Patel EO # 0.2 103/ul Normal 0.0-0.7 [facility] Comment on above: Performed By: #### C BC #### [facility] [address] [place] [address] Dr. Julianne Patel Eosinophils/100 WBC (Bld) 4.1 % Normal 0.9-7.0 [facility] Comment on above: Performed By: #### C BC #### [facility] [address] [place] [address] Dr. Julianne Patel Erythrocyte distribution width (RBC) [Ratio] 12.7 % Normal 11.0-15.0 [facility] Comment on above: Performed By: #### C BC #### [facility] [address] [place] [address] Dr. Julianne Patel Hematocrit (Bld) [Volume fraction] 37.8 % Critically low 42.0-54.0 [facility] Comment on above: Performed By: #### C BC #### [facility] [address] [place] [address] Dr. Julianne Patel Hemoglobin (Bld) [Mass/Vol] 12.1 g/dL Critically low 14.0-18.0 [facility] Comment on above: Performed By: #### C BC #### [facility] [address] [place] [address] Dr. Julianne Patel IG # 0.02 10e3/ul Normal 0.00-0.03 [facility] Comment on above: Performed By: #### C BC #### [facility] [address] [place] [address] Dr. Julianne Patel IG % 0.4 % Normal 0.0-0.5 [facility] Comment on above: Performed By: #### C BC #### [facility] [address] [place] [address] Dr. Julianne Patel LYMPH # 1.2 103/ul Normal 1.2-3.8 [facility] Comment on above: Performed By: #### C BC #### [facility] [address] [place] [address] Dr. Julianne Patel Lymphocytes/100 WBC (Bld) 23.1 % Normal 20.5-60.0 [facility] Comment on above: Performed By: #### C BC #### [facility] [address] [place] [address] Dr. Julianne Patel MANUAL DIFF REQ NO Normal [facility] Comment on above: Performed By: #### C BC #### [facility] [address] [place] [address] Dr. Julianne Patel MCH (RBC) [Entitic mass] 30.9 pg Normal 25.9-34.0 [facility] Comment on above: Performed By: #### C BC #### [facility] [address] [place] [address] Dr. Julianne Patel MCHC (RBC) [Mass/Vol] 32.0 g/dL Normal 29.9-35.2 [facility] Comment on above: Performed By: #### C BC #### [facility] [address] [place] [address] Dr. Julianne Patel MCV (RBC) [Entitic vol] 96.7 fL Critically high 80.0-94.0 [facility] Comment on above: Performed By: #### C BC #### [facility] [address] [place] [address] Dr. Julianne Patel MONO # 0.5 103/ul Normal 0.3-0.8 [facility] Comment on above: Performed By: #### C BC #### [facility] [address] [place] [address] Dr. Julianne Patel Monocytes/100 WBC (Bld) 10.3 % Normal 1.7-12.0 [facility] Comment on above: Performed By: #### C BC #### [facility] [address] [place] [address] Dr. Julianne Patel NEUT # 3.1 103/ul Normal 1.4-6.5 [facility] Comment on above: Performed By: #### C BC #### [facility] [address] [place] [address] Dr. Julianne Patel Neutrophils/100 WBC (Bld) 60.9 % Normal 43.0-75.0 [facility] Comment on above: Performed By: #### C BC #### [facility] [address] [place] [address] Dr. Julianne Patel Platelet mean volume (Bld) [Entitic vol] 11.2 fL Normal 9.5-13.5 [facility] Comment on above: Performed By: #### C BC #### [facility] [address] [place] [address] Dr. Julianne Patel PLT 155 103/ul Normal 150-450 [facility] Comment on above: Performed By: #### C BC #### [facility] [address] [place] [address] Dr. Julianne Patel RBC 3.91 106/ul Critically low 4.70-6.10 [facility] Comment on above: Performed By: #### C BC #### [facility] [address] [place] [address] Dr. Julianne Patel WBC 5.2 103/ul Normal 4.0-11.0 [facility] Comment on above: Performed By: #### C BC #### [facility] [address] [place] [address] Dr. Julianne Patel FERRITINon 02-21-2022 Ferritin [Mass/Vol] 47.0 ng/mL Normal 26.0-388.0 [facility] Comment on above: Performed By: #### F ETIBC, VITB12, FERR #### [facility] [address] [address] [address] Julianne Patel IRON AND TIBCon 02-21-2022 % SATURATION 27.5 % Normal [facility] Comment on above: Performed By: #### F ETIBC, VITB12, FERR #### [facility] [address] [address] [address] Julianne Patel Iron [Mass/Vol] 90.0 ug/dL Normal 65.0-175.0 [facility] Comment on above: Performed By: #### F ETIBC, VITB12, FERR #### [facility] [address] [address] [address] Julianne Patel TIBC DIRECT 327.0 ug/dL Normal 250.0-450.0 [facility] Comment on above: Performed By: #### F ETIBC, VITB12, FERR #### [facility] [address] [address] [address] Julianne Patel VITAMIN B12on 02-21-2022 Cobalamin (Vitamin B12) [Mass/Vol] 578.0 pg/mL Normal 193.0-986.0 [facility] Comment on above: Performed By: #### F ETIBC, VITB12, FERR #### [facility] [address] [address] [address] Julianne Patel Outside Colonoscopyon 2021 Outside Colonoscopy [id number]#1.00CD:127 Normal [facility] Reminderson 01-17-2022 Reminders - From: Lucrecia Rachel LPN To: GSN - Clinical; Sent: 01/17/2022 09:15:41 EDT Show up: 12/17/2026 07:00:00 EDT Subject: colonoscopy recall Due Date/Time: 01/16/2027 07:00:00 EDT Reminder/Recall Patient is due for colonoscopy 01/16/2027 due to history of colonic polyps. Normal [facility] Lab Reportson 01-15-2022 Lab Reports [id number]#[id number]:127 [facility] Pre-Certification Formon Pre-Certification Form [id number]#[id number]:127 [facility] Consent for Procedure/Surger yon 12-13-2021 Consent for Procedure/Surgery [id number]#1.00CD:127 [facility] Ambulatory Visit Summaryon 0 12-12-2021 Ambulatory Visit Summary OLMAN HAMLIN :1945 Visit Date:12/12/2021 Ambulatory Visit Instructions Your Care Team Attending Physician - KALE GREEN, Bert Mckeon Primary Care Physician - SANJEEV LUU, DALLIN This Is Your Medications List Contact prescribing physician if questions or concerns albuterol (albuterol HFA 90 mcg/inh MDI) amlodipine (amLODIPine 5 mg Tab) aspirin (aspirin 81 mg Oral EC Tab) atorvastatin (Lipitor 40 mg Tab) cholecalciferol (Vitamin D 1000 intl units (25 mcg) Tab) fluticasone nasal (Flonase 0.05 mg/inh nasal spray) insulin lispro-insulin lispro protamine (Humalog Mix 75/25) lisinopril (lisinopril 20 mg Tab) metformin (metformin 1000 mg oral tablet) metoprolol (Metoprolol tartrate 50 mg Tab) omeprazole (omeprazole 40 mg Cap-DR) tamsulosin (Flomax 0.4 mg Cap) Procedures Performed Colonoscopy (08/26/2014), EGD - Esophagogastroduodenoscopy (02/2012), Colonoscopy (2008), Cholecystectomy, PCI - Percutaneous coronary intervention, Tonsillectomy and adenoidectomy. Discharge Vitals Heart Rate (Peripheral) 68 Respiratory Rate 16 Blood Pressure 140/70 Height 185.4 cm Height 185.42 cm Weight 99.3 kg Weight 99.3 kg BMI 28.88 Medications What How Much When Instructions Unchanged albuterol (albuterol HFA 90 mcg/ inh MDI) 2 Puffs Inhalation Every 4 hours as needed for as needed for wheezing Contact prescribing physician if questions or concerns Unchanged amlodipine (amLODIPine 5 mg Tab) 1 Tablets By Mouth Every day Contact prescribing physician if questions or concerns Unchanged aspirin (aspirin 81 mg Oral EC Tab) 1 Tablets By Mouth Every day Contact prescribing physician if questions or concerns Unchanged atorvastatin (Lipitor 40 mg Tab) 1 Tablets By Mouth Every day Contact prescribing physician if questions or concerns Unchanged cholecalciferol (Vitamin D 1000 intl units (25 mcg) Tab) 1 Tablets By Mouth Every day Contact prescribing physician if questions or concerns Unchanged fluticasone nasal (Flonase 0.05 mg/ inh nasal spray) 2 Sprays Nasal Inhalation Every day Contact prescribing physician if questions or concerns Unchanged insulin lispro-insulin lispro protamine (Humalog Mix 75/ 25) See instructions 60 units before breakfast and 48 units before dinner Contact prescribing physician if questions or concerns Unchanged lisinopril (lisinopril 20 mg Tab) 1 Tablets By Mouth Every day Contact prescribing physician if questions or concerns Unchanged metformin (metformin 1000 mg oral tablet) 1 Tablets By Mouth 2 times a day Contact prescribing physician if questions or concerns Unchanged metoprolol (Metoprolol tartrate 50 mg Tab) 1 Tablets By Mouth 2 times a day Contact prescribing physician if questions or concerns Unchanged omeprazole (omeprazole 40 mg Cap-DR) 1 Capsules By Mouth Every day Contact prescribing physician if questions or concerns Unchanged tamsulosin (Flomax 0.4 mg Cap) 1 Capsules By Mouth Every day Contact prescribing physician if questions or concerns Medications and Immunizations Administered Not Given influenza virus vaccine, inactivated, Patient Refuses Allergies No Known Allergies No Known Medication Allergies Problems Ongoing - Any problem that you are currently receiving treatment for. AAA (abdominal aortic aneurysm) ASHD (arteriosclerotic heart disease) Asthma BMI 28.0-28.9,adult BPH associated with nocturia Diabetes GERD with esophagitis History of colon polyps HTN (hypertension) Hypomagnesemia MARIA T (obstructive sleep apnea) Pernicious anemia Pure hypercholesterolemia Normal [facility] Transfer Inon 12-10-2021 Transfer In [id number]#[id number]:127 Normal [facility] Physician Referralon 022 Physician Referral [id number]#1.00CD:127 Normal [facility] Vital Signs Date Time Vital Sign Value Performing Clinician Facility 07-26-2024 11:10-0500 Body height 180.34 cm [facility] 07-26-2024 11:10-0500 Body mass index (BMI) [Ratio] 27.6 kg/m2 [facility] 07-26-2024 11:10-0500 Body weight 90.03 kg [facility] 07-26-2024 11:10-0500 Diastolic blood pressure 73 mm[Hg] [facility] 07-26-2024 11:10-0500 Heart rate 56 /min [facility] 07-26-2024 11:10-0500 Respiratory rate 12 /min [facility] 07-26-2024 11:10-0500 Systolic blood pressure 194 mm[Hg] [facility] 06-15-2024 09:51-0400 Body height 180.34 cm [facility] 06-15-2024 09:51-0400 Body mass index (BMI) [Ratio] 27.8 kg/m2 [facility] 06-15-2024 09:51-0400 Body temperature 96.3 [degF] [facility] 06-15-2024 09:51-0400 Body weight 90.71 kg [facility] 06-15-2024 09:51-0400 Diastolic blood pressure 58 mm[Hg] [facility] 06-15-2024 09:51-0400 Heart rate 50 /min [facility] 06-15-2024 09:51-0400 SaO2% (BldA) [Mass fraction] 97 % [facility] 06-15-2024 09:51-0400 Systolic blood pressure 160 mm[Hg] [facility] 06-01-2024 09:54-0400 Body height 180.34 cm [facility] 06-01-2024 09:54-0400 Body mass index (BMI) [Ratio] 27.8 kg/m2 [facility] 06-01-2024 09:54-0400 Body temperature 96.1 [degF] [facility] 06-01-2024 09:54-0400 Body weight 90.71 kg [facility] 06-01-2024 09:54-0400 Diastolic blood pressure 60 mm[Hg] [facility] 06-01-2024 09:54-0400 Heart rate 63 /min [facility] 06-01-2024 09:54-0400 SaO2% (BldA) [Mass fraction] 95 % [facility] 06-01-2024 09:54-0400 Systolic blood pressure 154 mm[Hg] [facility] 07-23-2023 10:00-0500 Body height 180.34 cm Dallin Ball Other [facility] [employer] Other 07-23-2023 10:00-0500 Body mass index (BMI) [Ratio] 28.62 kg/m2 Dallin Ball Other [facility] [employer] Other 07-23-2023 10:00-0500 Body weight 93.08 kg Dallin Ball Other [facility] [employer] Other 07-23-2023 10:00-0500 Diastolic blood pressure 66 mm[Hg] Dallin Ball Other [place] [employer] Other 07-23-2023 10:00-0500 Respiratory rate 12 /min Dallin Ball Other [place] [employer] Other 07-23-2023 10:00-0500 Systolic blood pressure 151 mm[Hg] Dallin Ball Other [facility] [employer] Other 05-05-2023 12:25-0400 Diastolic blood pressure 66 mm[Hg] Dallin E Ball Work Phone: [facility] [employer] 250 DO Work Phone: 05-05-2023 12:25-0400 Heart rate 64 /min Dallin E Ball Work Phone: [facility] [employer] 250 DO Work Phone: 08-28-2023 12:25-0400 Systolic blood pressure 138 mm[Hg] Dallin Domingo Ball Work Phone: [facility] 250 DO Work Phone: 05-05-2023 11:49-0400 Diastolic blood pressure 64 mm[Hg] Dallin E Ball Work Phone: [facility] 250 DO Work Phone: 05-05-2023 11:49-0400 Systolic blood pressure 156 mm[Hg] Dallin E Ball Work Phone: [facility] 250 DO Work Phone: 05-05-2023 11:48-0400 Body height 180.34 cm Dallin E Ball Work Phone: [facility] 250 DO Work Phone: 05-05-2023 11:48-0400 Body mass index (BMI) [Ratio] 28.03 kg/m2 Dallin Domingo Ball Work Phone: [facility] 250 DO Work Phone: 05-05-2023 11:48-0400 Body surface area Derived from formula 2.11 m2 Dallin E Ball Work Phone: [facility] 250 DO Work Phone: 05-05-2023 11:48-0400 Body weight 91.17 kg Dallin Domingo Ball Work Phone: [facility] 250 DO Work Phone: 05-05-2023 11:48-0400 Diastolic blood pressure 70 mm[Hg] Dallin E Ball Work Phone: [facility] 250 DO Work Phone: 05-05-2023 11:48-0400 Heart rate 63 /min Dallin Domingo Ball Work Phone: [facility] 250 DO Work Phone: 05-05-2023 11:48-0400 Systolic blood pressure 168 mm[Hg] Dallin E Ball Work Phone: [facility] 250 DO Work Phone: 01-20-2023 11:30-0400 Body height 180.34 cm Dallin Ball Other [facility] [employer] Other 01-20-2023 11:30-0400 Body mass index (BMI) [Ratio] 28.14 kg/m2 Dallin Ball Other [facility] [employer] Other 01-20-2023 11:30-0400 Body weight 91.54 kg Dallin Ball Other [facility] [employer] Other 01-20-2023 11:30-0400 Diastolic blood pressure 70 mm[Hg] Dallin Ball Other [facility] [employer] Other 01-20-2023 11:30-0400 Respiratory rate 12 /min Dallin Ball Other [facility] [employer] Other 01-20-2023 11:30-0400 Systolic blood pressure 152 mm[Hg] Dallin Ball Other [facility] [employer] Other 10-21-2022 11:00-0500 Body height 180.34 cm Dallin Ball Other [facility] [employer] Other 10-21-2022 11:00-0500 Body mass index (BMI) [Ratio] 28.53 kg/m2 Dallin Ball Other [facility] [employer] Other 10-21-2022 11:00-0500 Body weight 92.81 kg Dallin Ball Other [facility] [employer] Other 10-21-2022 11:00-0500 Diastolic blood pressure 62 mm[Hg] Dallin Ball Other [employer] Other 10-21-2022 11:00-0500 Respiratory rate 12 /min Dallin Pace Other [employer] Other 10-21-2022 11:00-0500 Systolic blood pressure 116 mm[Hg] Dallin Pace Other [facility] Other 12-12-2021 14:23-0400 Blood Pressure Location Bert NILL [facility] 12-12-2021 14:23-0400 Diastolic blood pressure 70 mm[Hg] [facility] 12-12-2021 14:23-0400 Heart rate 68 /min Bert NILL [facility] 12-12-2021 14:23-0400 Respiratory rate 16 /min Bert NILL [facility] 12-12-2021 14:23-0400 Systolic blood pressure 140 mm[Hg] Bert NILL [facility] Encounters Encounter Date Encounter Type Care Provider Facility Start: 07-26-2024 End: 07-26-2024 ambulatory [facility] Work Phone: Start: 07-26-2024 End: 07-26-2024 Patient encounter procedure [facility] Work Phone: Start: 07-21-2024 Non-patient / Non-visit [facility] Work Phone: Start: 06-15-2024 End: 06-15-2024 Patient encounter procedure [facility] Vascular Surgery Work Phone: Start: 06-15-2024 End: 06-15-2024 ambulatory Dallin Pace [facility] Work Phone: Start: 06-01-2024 End: 06-01-2024 ambulatory [facility] Work Phone: Start: 06-01-2024 End: 06-01-2024 Patient encounter procedure [facility] Vascular Surgery Work Phone: Start: 05-24-2024 End: 05-24-2024 ambulatory [facility] Start: 04-26-2024 End: 04-26-2024 ambulatory [facility] Start: 10-06-2023 End: 10-06-2023 ambulatory Dallin Pace Other [facility] Other Start: 10-06-2023 Telephone encounter Dallin MOORE [facility] Start: 07-23-2023 End: 07-23-2023 ambulatory Dallin Pace Other [facility] Other Start: 07-23-2023 Office outpatient vi sit 25 minutes Dallin Pace [facility] Start: 07-10-2023 End: 07-10-2023 ambulatory Dallin Pace Other [facility] Other Start: 07-10-2023 Telephone encounter Dallin MOORE [facility] Start: 07-02-2023 End: 07-02-2023 ambulatory Dallin Pace Other [facility] Other Start: 07-02-2023 Telephone encounter Dallin MOORE [facility] Start: 06-24-2023 End: 06-24-2023 Subsequent hospital visit by physician Rhea Neri Echo/Vasc Room 2 [facility] Comment on above: Benign hypertension; Atherosclerosis of [place] coronary artery, unspecified whether angina present, unspecified whether [place] or transplanted heart Start: 06-24-2023 End: 06-24-2023 ambulatory [facility] Start: 06-24-2023 End: 06-24-2023 Encounter for general adult medical examination without abnormal findings JEYSON HUANG [facility] Start: 05-07-2023 Telephone encounter Dallin Pace Work Phone: [facility] 250 DO Work Phone: Start: 05-05-2023 Office outpatient vi sit 25 minutes [facility] Work Phone: Start: 05-05-[address] Jeyson Huang [facility] ty: Start: 01-20-2023 End: 01-20-2023 ambulatory Dallin Pace Other [facility] Other Start: 01-20-2023 Office outpatient vi sit 25 minutes Dallin Pace [facility] Start: 01-15-2023 End: 01-16-[address] DALLIN PACE Facility: Start: 12-10-2022 End: 12-10-2022 ambulatory Dallin Pace Other [facility] Other Start: 12-10-2022 Telephone encounter Dallin MOORE [facility] Start: 12-03-2022 End: 12-03-2022 ambulatory Dallin Pace Other [facility] Other Start: 12-03-2022 Telephone encounter Dallin MOORE [facility] Start: 10-21-2022 End: 10-21-2022 ambulatory aDllin Pace Other [facility] Other Start: 10-21-2022 Office outpatient vi sit 25 minutes Dallin Pace [facility] Start: 10-04-2022 End: 10-04-2022 ambulatory Dallin Pace Other [facility] Other Start: 10-04-2022 Telephone encounter Dallin MOORE [facility] Start: 09-24-2022 End: 09-24-2022 ambulatory Dallin Pace Other [facility] Other Start: 09-24-2022 Telephone encounter Dallin MOORE Kary Pace [facility] Start: 09-16-2022 End: 09-16-2022 ambulatory Dallin Pace Other [facility] Other Start: 09-16-2022 Telephone encounter Dallin MOORE Kary Pace [facility] Start: 08-28-2022 End: 08-29-[address] DALLIN PACE Facility:[facility] Start: 04-20-2022 End: 04-21-[address] DALLIN PACE Facility:[facility] Start: 02-21-2022 End: 02-22-[address] DALLIN PACE Facility:[facility] Start: 12-12-2021 End: 12-12-2021 Patient encounter procedure Bert HENLEY [facility] Procedures Date Procedure Procedure Detail Performing Clinician Start: 06-24-2023 NUCLEAR STRESS TEST DALLIN PACE Start: 06-24-2023 VASC US AORTA ILIAC DUPLEX COMPLETE CORINA PACE Start: 06-24-2023 Dup-scan aorta ivc iliac vascl/bpgs complete Jeyson Huang MD Work Phone: Start: 01-06-2022 Total colonoscopy Dallin Pace Work Phone: Start: 08-26-2014 Colonoscopy Bert HENLEY Start: 02-07-2012 Esophagogastroduodenoscopy Bert HENLEY Start: 09-08-2008 Colonoscopy Bert HENLEY Cholecystectomy Bert HENLEY Cholecystectomy Dallin jones Work Phone: Depression screening Ava Pace Other Percutaneous coronary intervention Bert HENLEY Percutaneous translu heidi coronary angioplasty Dallin Pace Work Phone: Tonsillectomy Dallin buchanan Work Phone: Tonsillectomy and adenoidectomy Bert HENLEY Plan of Treatment Date Care Activity Detail Author Start: 04-26-2024 FUV, Provider: Jeyson Huang, Status: Pen, Time: 11:30 AM FUV, Provider: Jeyson Huang, Status: Pen, Time: 11:30 AM [facility] 250 DO Work Phone: Start: 04-26-2024 End: 04-26-2024 Patient encounter procedure 04/26/2024 11:30 AM EDT Office Visit [facility] [address] [facility] [address] [place] [address] Jeyosn Huang MD [address] [place] [address] [address] [place], [place] [id number] [facility] Start: 05-09-2023 Influenza vaccination Influenza Vaccine (#1) [facility] Start: 04-10-2021 Hemoglobin A1c measurement Diabetes: Hemoglobin A1C [facility] Start: 1995 Zoster Vaccines (1 of 2) Zoster Vaccines (1 of 2) [facility] Start: 1967 DTaP/Tdap/Td Vaccines (1 - Tdap) DTaP/Tdap/Td Vaccines (1 - Tdap) [facility] Start: 1964 Urine screening for protein Diabetes: Urine Protein Screening [facility] Start: 1963 Hepatitis C screening Hepatitis C Screening [facility] Start: 1955 Diabetic foot examination Diabetes: Foot Exam [facility] Start: 1955 Glaucoma screening Diabetes: Retinopathy Screening [facility] Start: 1951 Pneumococcal Vaccine: 65+ Years (1 - PCV) Pneumococcal Vaccine: 65+ Years (1 - PCV) [facility] Start: 01-27-1946 COVID-19 Vaccine (#1) COVID-19 Vaccine (#1) [facility] Start: 1945 Lipid panel Lipid Panel [facility] Start: 1945 Medicare Annual Wellness Visit Medicare Annual Wellness Visit (AWV) [facility] US scan of abdominal aorta [facility] US.doppler Carotid arteries - bilateral [facility] Immunizations Immunization Date Immunization Notes Care Provider Fa cility NEGATED: Highlighted row has not occurred!12-12-2021 influenza virus vaccine, unspecified formulation Bert KALE [facility] Payers Date Payer Category Payer Self-pay 2023 Medicare [facility] E MEDICARE [employer] MEDICARE [id number] 2023-Present [address] [place] [address] [id number] 1959 Medicare [id number] 1959 Medicare [id number] 1945 Unknown [id number] 1945 Unknown [id number] 1945 Unknown [id number] 1945 Unknown [id number] 1945 Unknown [id number] 1945 Unknown [id number] 1945 Unknown [id number] 1945 Unknown [id number] 1945 Unknown [id number] 1945 Unknown [id number] 1945 Unknown [id number] 1945 Unknown [id number] 1945 Unknown [id number] Medicare [id number] Unknown [facility] Unknown [id number] Social History Date Type Detail Facility Start: 12-12-2021 End: 06-01-2024 Tobacco smoking status Never smoked tobacco (finding) [facility] Tobacco smoking status Never [facility] Sex Assigned At Male [facility] No alcohol use No alcohol use [facility] 250 DO Work Phone: Comment on above: 1 pot of coffee gary y; Tobacco smoking status SDIS Tobacco smoking consumption unknown [facility] Work Phone: Start: 1945 Sex Assigned At Not on file [facility] Work Phone: Start: 06-14-2023 End: 06-24-2023 Exposure to SARS-CoV-2 (event) Not sure [facility] Start: 1945 Sex Assigned At Male F [facility] Start: 07-26-2024 Sex Male (finding) [facility] Procedure Code Equipment Code Equipment Origin al Text Equipment Identifier Dates Start: 12-10-2022 Blood Sugar Diagnostic (Accu-Chek Guide Test Strips) strip Start: 01-16-2024 Insulin Syringe-Needle U-100 (Bd Insulin Syringe Ultra-Fine) 1 mL 31 gauge x 5/16 syringe Start: 11-27-2023 Blood Sugar Diagnostic (Accu-Chek Guide Test Strips) strip Start: 01-14-2024 End: 01-16-2024 Blood Sugar Diagnostic (Accu-Chek Guide Test Strips) strip Start: 01-14-2024 End: 01-14-2024 Insulin Syringe-Needle U-100 (Bd Insulin Syringe Ultra-Fine) 1 mL 31 gauge x 5/16 syringe Start: 11-27-2023 End: 11-27-2023 Blood Sugar Diagnostic (Accu-Chek Guide Test Strips) strip Start: 01-16-2024 Insulin Syringe-Needle U-100 (Bd Insulin Syringe Ultra-Fine) 1 mL 31 gauge x 5/16 syringe Start: 11-27-2023 Blood Sugar Diagnostic (Accu-Chek Guide Test Strips) strip Start: 01-14-2024 End: 01-16-2024 Blood Sugar Diagnostic (Accu-Chek Guide Test Strips) strip Start: 01-14-2024 End: 01-14-2024 Insulin Syringe-Needle U-100 (Bd Insulin Syringe Ultra-Fine) 1 mL 31 gauge x 5/16 syringe Start: 11-27-2023 End: 11-27-2023 Blood Sugar Diagnostic (Accu-Chek Guide Test Strips) strip Start: 01-16-2024 Insulin Syringe-Needle U-100 (Bd Insulin Syringe Ultra-Fine) 1 mL 31 gauge x 5/16 syringe Start: 11-27-2023 Blood Sugar Diagnostic (Accu-Chek Guide Test Strips) strip Start: 01-14-2024 End: 01-16-2024 Blood Sugar Diagnostic (Accu-Chek Guide Test Strips) strip Start: 01-14-2024 End: 01-14-2024 Insulin Syringe-Needle U-100 (Bd Insulin Syringe Ultra-Fine) 1 mL 31 gauge x 5/16 syringe Start: 11-27-2023 End: 11-27-2023 Blood Sugar Diagnostic (Accu-Chek Guide Test Strips) strip Start: 01-16-2024 Insulin Syringe-Needle U-100 (Bd Insulin Syringe Ultra-Fine) 1 mL 31 gauge x 5/16 syringe Start: 11-27-2023 Blood Sugar Diagnostic (Accu-Chek Guide Test Strips) strip Start: 01-14-2024 End: 01-16-2024 Blood Sugar Diagnostic (Accu-Chek Guide Test Strips) strip Start: 01-14-2024 End: 01-14-2024 Insulin Syringe-Needle U-100 (Bd Insulin Syringe Ultra-Fine) 1 mL 31 gauge x 5/16 syringe Start: 11-27-2023 End: 11-27-2023 Clinical Notes 12-12-2021 to 06-01-2024 Note Date & Type Note Facility 06-01-2024 Evaluation note Diagnosis Onset Date Resolution Abdominal aortic aneurysm, without rupture, unspecified acute June 01, 2024 9:41am Occlusion and stenosis of bilateral carotid arteries acute 2023 9:41am Abdominal aortic aneurysm, without rupture, unspecified acute June 15 9:15am Abdominal aortic aneurysm, without rupture, unspecified acute July 26, 2024 11:02am ASHD (arteriosclerotic heart disease) acute July 26, 2024 11:02am Chronic kidney disease acute No vember 2023 11:02am Hypercholesterolemia acute 2023 11:02am Hypertension acute July 11:02am Occlusion and stenosis of bilateral carotid arteries acute 2023 11:02am MARIA T (obstructive sleep apnea) acute July 26, 2024 11:02am Type 2 diabetes mellitus with hyperglycemia acute July 11:02am [facility] Work Phone: [phone]) 870-604311-15-2023 Evaluation note* Encounter Date Diagnosis Assessment Notes Treatment Notes Treatment Clinical Notes Jul, ASHD (arteriosclerot ic heart disease) (ICD-10 - I25.10) This patient is stable without activity related CP, dyspnea or lightheadedness. They are instructed to continue exercise and AHA diet plan. Continue secondary prevention measures. Jul, Type 2 diabetes greg itus with hyperglycemia (ICD-10 - E11.65) This patient is following a comprehensive diabetic treatment plan. They are checking their feet daily for calluses and nonhealing ulcers. They are being seen for yearly dilated eye examinations. Goals: SBP less than 130, LDL less than 100, FBS less than 140, A1C less than 7%. They are checking their BS daily, will which are reviewed at the office visit. Continue regular routine monitoring of A1C,] Microalbumin, Dilated eye exam and Foot exam Jul, Type 2 diabetes greg itus with diabetic polyneuropathy (ICD-10 - E11.42) Inspect feet daily for cuts and calluses.Recommend diabetic shoes and inserts to prevent callus formation.Fall precautions. Jul, Essential hypertensi on (ICD-10 - I10) This patient is instructed to consume a healthy, low-fat, low-salt diet. They are also encouraged to continue exercise to achieve/maintain a normal BMI. Jul, Pure hypercholestero lemia (ICD-10 - E78.00) Instructed on diet and exercise with continued statin therapy.Discussed the beneficial effects of lowering cholesterol in reducing the risk for cerebrovascular and cardiovascular disease. Jul, Infrarenal abdominal aortic aneurysm (AAA) without rupture (ICD-10 - I71.43) US abdomen: 3.1cm fusiform - 04/2022 US abdomen: 3.2cm AAA - 07/2023 Control and continue statin therapy. Recent abdominal US w/o change in diameter AAA 3.2cm Jul, Obstructive sleep ap louie (ICD-10 - G47.33) This patient is aware of the benefits associated with MARIA T: With continued use, the patient reduces the risk for CT, CVA, HTN, cardiac dysrhythmias and sudden cardiac deaths.The patient is also aware of the association between MARIA T and morning headaches, daytime somnolence, fatigue and obesity, which also has been improved with continued use.The patient is compliant with treatment, wearing the equipment every night for greater than 4 hours.The patient is instructed to continue use of the CPAP for MARIA T treatment. Jul, half-way (current) use of insulin (ICD-10 - Z79.4) Jul, Gastroesophageal ref lux disease with esophagitis without hemorrhage (ICD-10 - K21.00) [facility] Other 11-02-2023 Evaluation note* Encounter Date Diagnosis Assessment Notes Treatment Notes Treatment Clinical Notes Jul, Type 2 diabetes mellitus with hyperglycemia (ICD-10 - E11.65) [facility] Other 10-25-2023 Evaluation note* Encounter Date Diagnosis Assessment Notes Treatment Notes Treatment Clinical Notes Jun, Infrarenal abdominal aortic aneurysm (AAA) without rupture (ICD-10 - I71.43) CT 3.2cm - 2022 [facility] Other 05-15-2023 Evaluation note* Encounter Date Diagnosis Assessment Notes Treatment Notes Treatment Clinical Notes January, ASHD (arteriosclerot ic heart disease) (ICD-10 - I25.10) This patient is stable without activity related CP, dyspnea or lightheadedness. They are instructed to continue exercise and AHA diet plan. January, Type 2 diabetes greg itus with hyperglycemia (ICD-10 - E11.65) This patient is following a comprehensive diabetic treatment plan. They are checking their feet daily for calluses and nonhealing ulcers. They are being seen for yearly dilated eye examinations. Goals: SBP less than 130, LDL less than 100, FBS less than 140, AC and A1C less than 7%. They are checking their BS daily, will which are reviewed at the office visit. 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 January, Essential hypertensi on (ICD-10 - I10) This patient is instructed to consume a healthy, low-fat, low-salt diet. They are also encouraged to continue exercise to achieve/maintain a normal BMI. January, Pure hypercholestero lemia (ICD-10 - E78.00) Instructed on diet and exercise with continued statin therapy.Discussed the beneficial effects of lowering cholesterol in reducing the risk for cerebrovascular and cardiovascular disease. January, Infrarenal abdominal aortic aneurysm (AAA) without rupture (ICD-10 - I71.43) US abdomen: 3.1cm fusiform - 04/2022 Stable, instructed to continue BP control. Recheck qoy January, Obstructive sleep ap louie (ICD-10 - G47.33) This patient is aware of the benefits associated with MARIA T: With continued use, the patient reduces the risk for CT, CVA, HTN, cardiac dysrhythmias and sudden cardiac deaths.The patient is also aware of the association between MARIA T and morning headaches, daytime somnolence, fatigue and obesity, which also has been improved with continued use.The patient is compliant with treatment, wearing the equipment every night for greater than 4 hours.The patient is instructed to continue use of the CPAP for MARIA T treatment. January, steam hand (current) use of insulin (ICD-10 - Z79.4) [facility] Other 04-04-2023 Evaluation note* Encounter Date Diagnosis Assessment Notes Treatment Notes Treatment Clinical Notes Dec, Type 2 diabetes mellitus with hyperglycemia (ICD-10 - E11.65) [facility] Other 02-13-2023 Evaluation note* Encounter Date Diagnosis Assessment Notes Treatment Notes Treatment Clinical Notes Oct, ASHD (arteriosclerot ic heart disease) (ICD-10 - I25.10) This patient is stable without activity related CP, dyspnea or lightheadedness. They are instructed to continue exercise and AHA diet plan. Oct, Type 2 diabetes greg itus with hyperglycemia (ICD-10 - E11.65) This patient is following a comprehensive diabetic treatment plan. They are checking their feet daily for calluses and nonhealing ulcers. They are being seen for yearly dilated eye examinations. Goals: SBP less than 130, LDL less than 100, FBS less than 140, AC and A1C less than 7%. They are checking their BS daily, will which are reviewed at the office visit. 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 Recommend diabetic shoes and inserts to prevent ulcers. Fall precautions Oct, Essential hypertensi on (ICD-10 - I10) This patient is instructed to consume a healthy, low-fat, low-salt diet. They are also encouraged to continue exercise to achieve/maintain a normal BMI. Oct, Pure hypercholestero lemia (ICD-10 - E78.00) Diet and exercise with continued statin therapy. Oct, Infrarenal abdominal aortic aneurysm (AAA) without rupture (ICD-10 - I71.43) US abdomen: 3.1cm fusiform - 04/2022 Healthy diet, control BP Oct, Gastroesophageal ref lux disease with esophagitis without hemorrhage (ICD-10 - K21.00) Diet instructions: Smaller portions, avoid eating and laying flat, avoid eating or drinking prior to bedtime. Weight loss. Oct, Obstructive sleep ap louie (ICD-10 - G47.33) This patient is aware of the benefits associated with MARIA T: With continued use, the patient reduces the risk for CT, CVA, HTN, cardiac dysrhythmias and sudden cardiac deaths.The patient is also aware of the association between MARIA T and morning headaches, daytime somnolence, fatigue and obesity, which also has been improved with continued use.The patient is compliant with treatment, wearing the equipment every night for greater than 4 hours.The patient is instructed to continue use of the CPAP for MARIA T treatment. CPAP 7 Oct, Anemia, unspecified type (ICD-10 - D64.9) Chronic w/ negative evaluation in past Oct, Benign prostatic hyperplasia with lower urinary tract symptoms (ICD-10 - N40.1) Yearly PSA, symptoms tolerable. Oct, half-way (current) use of insulin (ICD-10 - Z79.4) Oct, Screening PSA (prost ate specific antigen) (ICD-10 - Z12.5) [facility] Other 04-06-2022 NoteChief Complaint consultation for colonoscopy HPI Staff 76 year old male presents on consultation from Dr. Pace for colonoscopy. Denies abdominal or rectalpain. No rectal bleeding or change in bowel habits. Denies nausea or vomiting. No unexplained weight loss. Last colonoscopy 08/26/14 with hemorrhoids and tubular adenoma. No known family history of colon cancer. History of Present Illness 76 yo male with h/o CAD, DMII, htn, hypercholesterolemia, AAA, asthma, GERD, referred for surveillance colonoscopy; denies change in bms or blood in stools, no abdominal complaints; last colonoscopy 2013 in [place], had several tubular adenomas removed; only abdominal operation cholecystectomy; on baby asa daily, no NSAIDs, no SBE prophylaxis; no fmhx of colon cancer; patient's sister with Crohn's disease. Review of Systems PHQ Score Initial Depression Screen Score: 0 ROS - Provider Constitutional: no fever, no sweats, no weight loss. Eyes: no glasses, no blurred vision, no visual loss. ENMT: no dentures, no hoarseness, no swallowing difficulties, no hearing loss, no ear infection(s),no nose bleeds. Cardiovascular: normal blood pressure, no chest pain, regular heartbeat, no heart murmur. Respiratory: no shortness of breath, no cough, no asthma, no wheezing. Gastrointestinal: no nausea, no vomiting, no diarrhea, no constipation, no blood in stool, no change in bowel habits, no abdominal pain, no hepatitis. Genitourinary: no kidney stones, no urine infection, no dysuria. Musculoskeletal: no pain, no weakness. Skin: no changing moles, no rash, no skin lumps. Neurologic: no seizures, no epilepsy, no headache. Psychiatric: no emotional or psychiatric problem. Heme/Lymph: no bleeding problems, no anemia, no blood clots, no transfusions. Allergy/Immunologic: no swollen lymph nodes/glands, no IV drug abuse. Other: Additional ROS info: Except as noted in the above Review of Systems and in the History of Present Illness, all other systems have been reviewed and are negative or noncontributory. Physical Exam Vitals & Measurements HR: 68(Peripheral) RR: 16 BP: 140/70 HT: 185.4 cm HT: 185.42 cm WT: 99.3 kg WT: 99.3 kg BMI: 28.88 HEENT: normal conjunctiva, sclera clear, no scleral icterus, EOM intact, PERRLA, oral mucosa moist without lesions. Neck: trachea midline, no mass, symmetric, no thyromegaly or nodules, no adenopathy Respiratory: lungs CTA, respirations non labored. Cardiovascular: regular rate and rhythm, no murmur, no pedal edema or varicosities. Gastrointestinal: soft, non distended, no tenderness, no masses, no palpable hernias, diastasis recti no, no hepatosplenomegaly; normal bs Lymphatic: no cervical adenopathy, Musculoskeletal: normal gait, digits and nails without infection, nodes, cyanosis, clubbing. Skin: no rashes, no lesions, no ulcers, no subcutaneous nodules, induration. Psychiatric/Neuro: oriented to time, place, person, judgement normal, affect appropriate for age, insight intact, no focal deficits. Tests: review of old records completed, Discussed surgical options, risks, and possible complications with patient. Assessment/Plan 1. Personal history of colonic polyps (Z86.010: Personal history of colonic polyps) plan colonoscopy under anesthesia, informed consent obtained. Ordered: E&M of New Patient Low 30-44 Min 70704 Follow-up No qualifying data available Problem List/Past Medical History Ongoing AAA (abdominal aortic aneurysm) ASHD (arteriosclerotic heart disease) Asthma BMI 28.0-28.9,adult BPH associated with nocturia Diabetes GERD with esophagitis History of colon polyps HTN (hypertension) Hypomagnesemia MARIA T (obstructive sleep apnea) Pernicious anemia Personal history of colonic polyps Pure hypercholesterolemia Historical No qualifying data Procedure/Surgical History Colonoscopy (08/26/2014), EGD - Esophagogastroduodenoscopy (02/2012), Colonoscopy (2008), Cholecystectomy, PCI - Percutaneous coronary intervention, Tonsillectomy and adenoidectomy. Medications albuterol HFA 90 mcg/inh MDI, 2 puff(s), Inhalation, q4hr, PRN amLODIPine 5 mg Tab, 5 mg= 1 tab(s), Oral, Daily aspirin 81 mg Oral EC Tab, 81 mg= 1 tab(s), Oral, Daily Flomax 0.4 mg Cap, 0.4 mg= 1 cap(s), Oral, Daily Flonase 0.05 mg/inh nasal spray, 2 spray(s), Nasal, Daily Humalog Mix 75/25, See Instructions Lipitor 40 mg Tab, 40 mg= 1 tab(s), Oral, Daily lisinopril 20 mg Tab, 20 mg= 1 tab(s), Oral, Daily metformin 1000 mg oral tablet, 1000 mg= 1 tab(s), Oral, BID Metoprolol tartrate 50 mg Tab, 50 mg= 1 tab(s), Oral, BID omeprazole 40 mg Cap-DR, 40 mg= 1 cap(s), Oral, Daily Vitamin D 1000 intl units (25 mcg) Tab, 25 mcg= 1 tab(s), Oral, Daily Allergies No Known Allergies No Known Medication Allergies Social History Alcohol - Denies Alcohol Use, 12/12/2021 Substance Abuse - Denies Substance Abuse, 12/12/2021 Tobacco Never (less than 100 in lifetime) Tobacco Use:. Never Smokel (more content not included)...[facility] HospitalComment on above:Result Comment: Electronically Signed By: KALE GREEN, Bert Woodall\Date and Time Signed: 12/12/21 21:56 EDTEvaluation + Plan note No data available for this section General Surgery [facility] Evaluation noteNo InformationNortSh[facility] [place] Other Evaluation note* Diagnosis Benign hypertension Essential hypertension, benign Atherosclerosis of [place] coronary artery, unspecified whether angina present, unspecified whether koyuk or transplanted heart documented in this encounter [facility] Work Phone: Evaluation noteNo assessment information available [facility] Work Phone: Evaluation note* Diagnosis Onset Date Resolution Status Abdominal aortic aneurysm, without rupture, unspecifie d acute Occlusion and stenosis of bilateral carotid arteries acute [facility] Work Phone: Evaluation note* Diagnosis Onset Date Resolution Status Abdominal aortic aneurysm, without rupture, unspecifie d acute Occlusion and stenosis of bilateral carotid arteries acute Abdominal aortic aneurysm, without rupture, unspecifie d acute [facility] Work Phone: History general Narrative - Reported* Type Description Date Medical History History of colon polyps Medical History Abdominal aortic aneurysm, witho ut rupture Medical History Body mass index (BMI) of 25.0 to 29.9 Medical History Polyuria Medical History Obstructive sleep apnea Medical History Benign prostatic hyp erplasia with lower urinary tract symptoms Medical History Mild intermittent asthma without complication Medical History Anemia, unspecified Medical History Gastroesophageal ref lux disease with esophagitis without hemorrhage Medical History Type 2 diabetes mellitus Medical History Essential hypertension Medical History Pure hypercholesterolemia Surgical History colonoscopy Surgical History cholecystectomy Surgical History PCI, with stent insertion Hospitalization History see surgical history [facility] [place] Other History of Present illness Narrative* 77-year-old is accompanied by to the office, here to establish cardiology care. * Has history of atherosclerotic [place] vessel coronary artery disease and multiple risk factors * Active, clearly more than 4 METS daily, probably much more. * Diabetes on insulin, Dr. Pace manages. * No symptoms of hypoglycemia patient reports hemoglobin A1c 7.0 * Patient denies palpitations lightheadedness presyncope syncope orthopnea PND lower extremity edema. * Has not had any recent cardiac testing. * Reviewed notes by primary care dated April 2023 and lab data from February 2023. Patient has some irondeficiency indices, and is on supplementation. * EKG today shows normal sinus rhythm at [address] interval 162 ms QRS duration 84 ms QTc 407 ms, there is evidence of left atrial abnormality. * History so far : * 1. Atherosclerotic [place] vessel coronary artery disease-patient says that whenever he goes off metoprolol or forgets to take his metoprolol he can notice angina pectoris type chest discomfort original chest discomfort was bilateral shoulder and neck discomfort, but the chest discomfort he feels now when he does not take metoprolol is chest pressure sensation that comes on with activity. This is nothing new for him. As long as he is compliant with metoprolol there are no issues. * 2. 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 GERD * 4. Hypertension-at target * 5. BPH * 6. Echo December 2010-LVEF 60% mild RV dilatation normal chamber dimensions physiologic tricuspid regurgitation normal aortic root, left ventricular end- systolic diameter 3.6 cm left atrial diameter 4.5cm RV systolic pressure 42 mmHg peak and mean gradients across aortic valve 11 and 6 respectively aortic root 3.3 cm * 7. Stress perfusion November 2010 -11 minutes 37 seconds stage IV of Wilian protocol, 12.8 METS, no cardiac symptoms, [address] depression 2 3 aVF V5 and V6, no arrhythmia, LVEF 60%, no ischemia * 8. Cardiac catheterization 2005-LVEF 60%, patent stent in the mid RCA, patient underwent PCI and stenting of the PLV with a 2.5 x 8 mm Cypher drug-eluting stent, LVEDP 15 mmHg, normal left main, milddisease of the LAD, mid LAD 30 to 40%, left circumflex luminal irregularities, distal RCA receives collaterals from the left circumflex artery, RCA mild to moderate disease with 80% stenosis in the posterolateral ventricular branch following a segment of aneurysm. * 9. Screening abdominal aorta ultrasound April 2022-proximal aorta 2.1 x 2.8 cm, mid aorta 2.2 x 3.1 cm with fusiform dilatation , distal aorta 2.6 x 2.7 cm * Assessment: * Multiple cardiac risk factors * Diabetic, insulin requiring * Hypertension-initially above target repeat blood pressure at target * Hyperlipidemia-on moderate dose of high intensity statin. * Exertional angina pectoris went off beta-blockers. Otherwise does more than 4 METS of activity without any symptoms * Recommendations: * 1. Patient is not particularly keen on proceeding with further cardiac work-up at this time he understands that he is entitled to further testing for CAD progression particularly given his history and given the fact that he is a diabetic. * 2. 1 year follow-up * 3. Comprehensive profile lipid profile hemoglobin A1c,cbc prior to next visit * 4. Ongoing heart healthy lifestyle * 5. Patient brought prior abdominal aorta ultrasound reports, there has been an increase in size on the most recent study from April 2022, as such we will repeat ultrasound of the abdominal aorta prior to next visit. * 6. Consider Farxiga or Jardiance if cost is not prohibitive-defer to Dr. Pace. * Thank you for allowing us to participate in Mr. Hamlin's care, please do not hesitate to call if further questions arise, * Sincerely, * Jeyson Huang MD [facility] [employer] DO Work Phone: History of Present illness Narrative* 77-year-old is accompanied by to the office, here to establish cardiology care. * Has history of atherosclerotic k[place] vessel coronary artery disease and multiple risk factors * Active, clearly more than 4 METS daily, probably much more. * Diabetes on insulin, Dr. Pace manages. * No symptoms of hypoglycemia patient reports hemoglobin A1c 7.0 * Patient denies palpitations lightheadedness presyncope syncope orthopnea PND lower extremity edema. * Has not had any recent cardiac testing. * Reviewed notes by primary care dated April 2023 and lab data from February 2023. Patient has some irondeficiency indices, and is on supplementation. * EKG today shows normal sinus rhythm at [address] interval 162 ms QRS duration 84 ms QTc 407 ms, there is evidence of left atrial abnormality. * History so far : * 1. Atherosclerotic [place] vessel coronary artery disease-patient says that whenever he goes off metoprolol or forgets to take his metoprolol he can notice angina pectoris type chest discomfort original chest discomfort was bilateral shoulder and neck discomfort, but the chest discomfort he feels now when he does not take metoprolol is chest pressure sensation that comes on with activity. This is nothing new for him. As long as he is compliant with metoprolol there are no issues. * 2. 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 GERD * 4. Hypertension-at target * 5. BPH * 6. Echo December 2010-LVEF 60% mild RV dilatation normal chamber dimensions physiologic tricuspid regurgitation normal aortic root, left ventricular end- systolic diameter 3.6 cm left atrial diameter 4.5cm RV systolic pressure 42 mmHg peak and mean gradients across aortic valve 11 and 6 respectively aortic root 3.3 cm * 7. Stress perfusion November 2010 -11 minutes 37 seconds stage IV of Wilian protocol, 12.8 METS, no cardiac symptoms, [address] depression 2 3 aVF V5 and V6, no arrhythmia, LVEF 60%, no ischemia * 8. Cardiac catheterization 2005-LVEF 60%, patent stent in the mid RCA, patient underwent PCI and stenting of the PLV with a 2.5 x 8 mm Cypher drug-eluting stent, LVEDP 15 mmHg, normal left main, milddisease of the LAD, mid LAD 30 to 40%, left circumflex luminal irregularities, distal RCA receives collaterals from the left circumflex artery, RCA mild to moderate disease with 80% stenosis in the posterolateral ventricular branch following a segment of aneurysm. * 9. Screening abdominal aorta ultrasound April 2022-proximal aorta 2.1 x 2.8 cm, mid aorta 2.2 x 3.1 cm with fusiform dilatation , distal aorta 2.6 x 2.7 cm * Assessment: * Multiple cardiac risk factors * Diabetic, insulin requiring * Hypertension-initially above target repeat blood pressure at target * Hyperlipidemia-on moderate dose of high intensity statin. * Exertional angina pectoris when off beta-blockers. Otherwise does more than 4 METS of activity without any symptoms * Recommendations: * 1. Patient has not had recent cardiac testing for CAD progression he is a diabetic. * 2. Proceed with treadmill stress perfusion imaging ,may switch to lexiscan myoview as needed. * 3. Comprehensive profile lipid profile hemoglobin A1c,cbc prior to next visit * 4. Ongoing heart healthy lifestyle * 5. Patient brought prior abdominal aorta ultrasound reports, there has been an increase in size on the most recent study from April 2022, as such we will repeat ultrasound of the abdominal aorta prior to next visit. * 6. Consider Farxiga or Jardiance if cost is not prohibitive-defer to Dr. Pace. * Thank you for allowing us to participate in Mr. Hamlin's care, please do not hesitate to call if further questions arise, * Sincerely, * Jeyson Huang MD [facility] [address] DO Work Phone: Hospital Discharge instructions No data available for this section General Surgery [facility] Summary Purpose Family History Unknown Family Member Name Dates Details Family history of hypertensi on: Mother(V17.49, Z82.49) Status:Active Family history of diabetes m ellitus: Mother(V18.0, Z83.3) Status:Active Family history of hyperlipid emia: Mother(V18.19, Z83.438) Status:Active : Mother, Father, Si ster, Brother Status:Active Family history of cerebral a neurysm: Father, Sister(V17.1, Z82.49) Status:Active Family history of coronary a rtery disease: Brother(V17.3, Z82.49) Status:Active Family history of myocardial infarction: Brother(V17.3, Z82.49) Status:Active Unknown Family Member Name Dates Details Family history of hypertensi on: Mother(V17.49, Z82.49) Status:Active Family history of diabetes m ellitus: Mother(V18.0, Z83.3) Status:Active Family history of hyperlipid emia: Mother(V18.19, Z83.438) Status:Active : Mother, Father, Si ster, Brother Status:Active Family history of cerebral a neurysm: Father, Sister(V17.1, Z82.49) Status:Active Family history of coronary a rtery disease: Brother(V17.3, Z82.49) Status:Active Family history of myocardial infarction: Brother(V17.3, Z82.49) Status:Active Unknown Family Member Name Dates Details Family history of hypertensi on: Mother(V17.49, Z82.49) Status:Active Family history of diabetes m ellitus: Mother(V18.0, Z83.3) Status:Active Family history of hyperlipid emia: Mother(V18.19, Z83.438) Status:Active : Mother, Father, Si ster, Brother Status:Active Family history of cerebral a neurysm: Father, Sister(V17.1, Z82.49) Status:Active Family history of coronary a rtery disease: Brother(V17.3, Z82.49) Status:Active Family history of myocardial infarction: Brother(V17.3, Z82.49) Status:Active Advance Directives Advance Directive Response Recorded Date/ Time Advance Directives No September 30, 2023 5:24pm Advance Directive Response Recorded Date/ Time Advance Directives No September 30, 2023 4:24pm Chief Complaint OLMAN HAMLIN is being seen for establish locally, history cad, ptca, htn.OLMAN HAMLIN is being seen for establish locally, history cad, ptca, htn. Reason for Referral Specialty Diagnoses / Procedures Referred By Alivia leigh Referred To Contact Cardiology Diagnoses Benign hypertension Atherosclerosis of [place] coronary artery, unspecified whether angina present, unspecified whether [place] or transplanted heart Procedures Vascular US aorta iliac duplex complete Jeyson Huang MD [address] [facility] [address] [place] [address] Referral ID Status Reason Start Date Expiration Date Visits Requested Visits Authorized [id number] Authorized Perform Procedure 05/25/2023 11/21/2023 1 1 Chief Complaint and Reason for Visit Chief Complaint Referred by Dr. Jackie tipton AAA, w/out rupture Chief Complaint Referred by Dr. Jackie tipton AAA, w/out rupture go over aaa u/s Reason for Visit Abdominal aortic ane urysm, without rupture, unspecified Occlusion and stenosis of bilateral carotid arteries Chief Complaint Referred by Dr. Jackie tipton AAA, w/out rupture go over aaa u/s Reason for Visit Abdominal aortic ane urysm, without rupture, unspecified Occlusion and stenosis of bilateral carotid arteries Abdominal aortic aneurysm, without rupture, unspecified Chief Complaint Admit Date Referred by Dr. Huang AAA, w/out rupture June 01, 2024 9:41am go over aaa u/s June 15, 2024 9: 15am CC Adult Risk Stratification July 212023 10:57am 6 month follow up July 26, 2024 11:02am Reason for Visit Admit Date Abdominal aortic aneurysm, without ruptu re, unspecified June 01, 2024 9:41am Occlusion and stenosis of bilateral marcos tid arteries June 01, 2024 9:41am Abdominal aortic aneurysm, without ruptu re, unspecified June 15, 2024 9:15am Abdominal aortic aneurysm, without ruptu re, unspecified July 26, 2024 11:02am ASHD (arteriosclerotic heart disease) No vember 2023 11:02am Chronic kidney disease July 26 11:02am Hypercholesterolemia July 26, 2024 11:02am Hypertension July 26, 2024 11:02am Occlusion and stenosis of bilateral marcos [place] arteries July 26, 2024 11:02am MARIA T (obstructive sleep apnea) July 092023 11:02am Type 2 diabetes mellitus with hyperglyce rahda July 26, 2024 11:02am Additional Source Comments (unrecognized sect ion and content) No Status Records FoundNo Status Records FoundNo Status Records FoundNo Status Records FoundNo Status Records FoundNo Status Records FoundNo Status Records Found INFORMATION SOURCE (unrecogn ized section and content) DATE CREATED AUTHOR 01/26/2022 [facility] DATE CREATED AUTHOR AUTHOR'S ORGANIZ ATION 01/19/2023 [facility] DATE CREATED AUTHOR AUTHOR'S ORGANIZ ATION 05/05/2023 [facility] DATE CREATED AUTHOR AUTHOR'S ORGANIZ ATION 05/07/2023 [employer] DATE CREATED AUTHOR AUTHOR'S ORGANIZ ATION 05/30/2024 [facility] DATE CREATED AUTHOR AUTHOR'S ORGANIZ ATION 06/02/2024 [facility] DATE CREATED AUTHOR AUTHOR'S ORGANIZ ATION 06/26/2024 [facility] REASON FOR VISIT (unrecogniz ed section and content) Specialty Diagnoses / Procedures Referred By Conttrudy t Referred To Contact Cardiology Diagnoses Benign hypertension Atherosclerosis of [place] coronary artery, unspecified whether angina present, unspecified whether [place] or transplanted heart Procedures Vascular US aorta iliac duplex complete Jeyson Huang MD [address] [facility] [address] [place] [address] Referral ID Status Reason Start Date Expiration Date Visits Requested Visits Authorized [id number] Authorized Perform Procedure 05/25/2023 11/21/2023 1 1 Care Teams (unrecognized sec tion and content) Extrusion Supervisor Relationship Specialty Start Date End Date Dallin Pace DO PCP - General 05/05/23 Team Status: Active Member Role Status Dates Dallin Sanjeev DO Primary Care Provider Active Team Status: Inactive Member Role Status Dates Dallin Sanjeev DO Primary Care Provider Active Start: June 01, 2024 End: June 01, 2024 Ruy Macias MD Attending Provider Active S tart: June 01, 2024 End: June 01, 2024 Team Status: Inactive Member Role Status Dates Dallin Sanjeev DO Primary Care Provider Active Start: June 15, 2024 End: June 15, 2024 Ruy Macias MD Attending Provider Active S tart: June 15, 2024 End: June 15, 2024 Team Status: Active Member Role Status Calixto Zamarripa Sanjeev DO Primary Care Provide r, Attending Provider Active Start: July 21, 2024 Team Status: Inactive Member Role Status Dates Dallin Sanjeev DO Primary Care Provide r, Attending Provider Active Start: July 26, 2024 End: July 26, 2024 Goals (unrecognized section and content) Goals may be documented in a n alternate section FOR RECORDS PERTAINING TO PATIENTS WHO ARE OR HAVE BEEN ENROLLED IN A CHEMICAL DEPENDENCY/SUBSTANCEABUSE PROGRAM, SOME INFORMATION MAY BE OMITTED. This clinical summary was aggregated from multiple sources. Caution should be exercised in using it in the provision of clinical care. This summary normalizes information from multiple sources, and as a consequence, information in this document may materially change the coding, format and clinical context of patient data. In addition, data may be omitted in some cases. CLINICAL DECISIONS SHOULD BE BASED ON THE PRIMARY CLINICAL RECORDS. [facility] [employer] provides no warranty or guarantee of the accuracy or completeness of information in this document.
[2024-07-26 12:42] LABS: Anion Gap 13.1; BUN Creatinine Ratio 17.7; Calcium 9.1 mg/dL (8.5-10.1); Carbon Dioxide 27.4 mmol/L (21.0-32.0); Chloride 106 mmol/L (98-107); Estimated GFR (African America 59 (>=60 mL/min/1.73m^2); Estimated GFR (Non-African Ame 49 (>=60 mL/min/1.73m^2); Glucose 221 mg/dL (74-106); Potassium 5.5 mmol/L (3.5-5.1); Sodium 141 mmol/L (136-145)
[2024-07-26 12:53] LABS: Estimated Average Glucose 192 mg/dL; Glycohemoglobin A1C 8.3 % (4.5-6.2)
== END 2024-07-26 12:04 | disposition home or self-care (01) ==
LOC: LAB 12:05
PROVIDERS: PCP Internal Medicine; Visit Provider Internal Medicine
DX: Z79.4 Long term (current) use of insulin (principal); E11.65 Type 2 diabetes mellitus with hyperglycemia; N18.9 Chronic kidney disease, unspecified
CPT/HCPCS: 36415; 80048; 83036

== ENCOUNTER 2024-11-18 22:42 | Emergency (ER) | payer MEDICARE, SELFPAY ==
[2024-11-18 22:45] VITALS: BP 211/85; PULSE 70; TEMP 36.7; O2SAT 98; BMI 27.9
--- OUTSIDE RECORDS SUMMARY | 2024-11-18 22:48 | XMS_ITS | CCD ---
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 Name Role Phone DALLIN PACE Primary Care Physician Dallin Pace Unavailable SANJEEV, DR ACEVES Admitting Unavailable SANJEEV, DR ACEVES Attending Unavailable SANJEEV, DR ACEVES Primary Care Unavailable SANJEEV, DR ACEVES Consulting Unavailable SANJEEV, DR ACEVES Primary Care Unavailable SANJEEV, DR ACEVES Admitting Unavailable SANJEEV, DR ACEVES Attending Unavailable SANJEEV, DR ACEVES Consulting Unavailable SANJEEV, DR ACEVES Admitting Unavailable SANJEEV, DR ACEVES Attending Unavailable SANJEEV, DR ACEVES Primary Care Unavailable SANJEEV, DR ACEVES Consulting Unavailable MACARENA, DR SHILPI Katz Consulting Unavailable SANJEEV, DR ACEVES Admitting Unavailable SANJEEV, DR ACEVES Attending Unavailable SANJEEV, DR ACEVES Primary Care Unavailable SANJEEV, DR ACEVES Consulting Dallin Harding Unavailable Unavailable Unavailable Dr. Jeyson Huang Referring Unavailable Sal, Dr. Watkins Attending Unavailable Sanjeev, Dr. Dallin Goode Primary Care UnaDallin Trammell DO Primary Care Provider U DALLIN [place] Primary Care Unavailable JEYSON HUANG Referring Unavailable [...] Macias Attending Unavailable Ruy Macias Admitting Unavailable Dallin Pace DO Primary Care Provider Medications Current Medications Medication Drug Class(es) Dates Sig (Normalized) Sig (Original) Accu-Chek Advantage Meter (7 sources) Start: 12-10-2022 Accu-Chek Advantage Meter Dec, Active [id number] 200 actuat albuterol 0.09 mg/actuat metered dose inhaler (14 sources) beta2-Adrenergic Agonist Start: 02-27-2024 Albuterol Sulfate [...] 4 hrs for 90 days Sep, Active take 2 puff(s) by in halation every six hours for wheezing albuterol 90 mcg/actuation aerosol powdr breath activated inhaler Inhale 2 puffs every 6 hours if needed for wheezing. Active albuterol HFA 90 mcg/inh MDI (1 source) Start: 12-07-2021 take 2 puff(s) by inhalation every four hours as needed for wheezing albuterol HFA 90 mcg/inh MDI 2 puff(s), Inhalation, q4hr as needed for wheezing, Refill(s) 0 Start Date: 12/07/21 Status: Ordered ascorbic acid 100 mg oral tablet (2 sources) Vitamin C take 1 tablet by mouth once daily ascorbic acid (Vitamin C) 100 mg tablet Take 1 tablet (100 mg) by mouth once daily. Active aspirin 81 mg chewable tablet (10 sources) Platelet Aggregation Inhibitor, Nonsteroidal Anti-inflammatory Drug Start: 06-01-2024 take 1 tablet by mouth once daily Aspirin 81 mg tablet,chewable Active 81 MG PO Daily May 31, 2024 11:00pm Start: 12-12-2021 take 1 tablet by patrice once daily aspirin 81 mg Oral EC Tab 81 mg = 1 tab(s), Oral, Daily, Refills(s) 0 Start Date: 12/12/21 Status: Ordered Start: 12-12-2021 aspirin 81 mg EC tablet Take 1 tablet (81 mg) by mouth. 12/12/2021 Active atorvastatin 40 mg oral tablet (20 sources) HMG-CoA Reductase Inhibitor Start: 11-06-2023 take 1 tablet by mouth once daily Atorvastatin 40 mg tablet Active 0 .ROUTE .COMPLEX 90 November 06, 2023 7:11pm TAKE 1 TABLET BY MOUTH DAILY Start: 08-22-2017 End: 11-06-2023 take 1 tablet by mouth once daily Atorvastatin 40 mg tablet Discontinued 40 MG PO Daily November 06, 2023 12:00am November 06, 2023 7:11pm cholecalciferol 0.025 mg oral tablet (5 sources) Vitamin D take 1 tablet by mouth once daily cholecalciferol (Vitamin D3) 25 MCG (1000 UT) tablet Take 1 tablet (1,000 Units) by mouth once daily. Active take 1 capsule by mouth once ligia ly Vitamin D3 1000 UNIT Oral Capsule TAKE 1 CAPSULE BY MOUTH ONCE A DAY Quantity: 0 Refills: 0 Ordered: 05-May-2023 DO Active ferrous gluconate 256 mg oral tablet (2 sources) take 1 tablet by mouth in the morning ferrous gluconate 256 mg (28 mg iron) tablet Take 1 tablet (28 mg) by mouth early in the morning.. Active Flonase 0.05 mg/inh nasal spray (1 source) Start: 12-07-2021 Flonase 0.05 mg/inh nasal spray 2 spray(s), Nasal, Daily, Refill(s) 0 Start Date: 12/07/21 Status: Ordered fluticasone propionate 0.05 mg/actuat metered dose nasal spray (20 sources) Corticosteroid Start: 12-07-2021 Fluticasone Propionate 50 mcg/actuation spray,suspension Active 1 SPRAY INTRANASAL [...] BREAKFAST AND 48 UNITS BEFORE EVENING MEAL Start: 07-19-2017 insulin lispro protamin-lispro (HumaLOG Mix 75-25,U-100,Insuln) 100 unit/mL (75-25) suspension injection 07/19/2017 Active HumaLOG Mix 75/2 5 (75-25) 100 UNIT/ML [...] TAKE 1 TABLET BY MOUTH DAILY Start: 02-27-2020 End: 11-06-2023 take 1 tablet by mouth once daily Lisinopril 20 mg tablet Discontinued 20 MG PO Daily November 06, 2023 12:00am November 06, 2023 7:11pm magnesium oxide 500 mg oral tablet (2 sources) take 1 tablet by mouth once daily magnesium oxide 500 mg magnesium tablet Take 1 tablet (500 mg) by mouth once daily. Active metFORMIN hydrochloride 1000 mg oral tablet (20 sources) Biguanide Start: 07-10-2024 take 1 tablet by mouth twice daily Metformin 1,000 mg tablet Active 0 .ROUTE .COMPLEX 180 July 10, 2024 6:50am TAKE 1 TABLET BY MOUTH TWICE DAILY Start: 03-17-2020 End: 07-10-2024 take 1 tablet by mouth twice daily Metformin 1,000 mg tablet Discontinued 1000 MG PO Twice daily January 19, 2024 11:00pm July 10, 2024 6:50am metoprolol tartrate 50 mg oral tablet (20 sources) beta-Adrenergic Nery Start: 07-10-2024 take 1 tablet by mouth twice daily at mealtime Metoprolol Tartrate 50 mg tablet Active 0 .ROUTE .COMPLEX 180 July 10, 2024 6:50am TAKE 1 TABLET BY MOUTH TWICE DAILY WITH FOOD Start: 07-07-2017 End: 07-10-2024 take 1 tablet by mouth twice daily Metoprolol Tartrate 50 mg tablet Discontinued 50 MG PO Twice daily January 19, 2024 11:00pm July 10, 2024 6:50am omega-3 acid ethyl esters (nursing home) 1000 mg oral capsule (2 sources) omega-3 acid eth yl esters (Lovaza) 1 gram capsule Take 1 capsule (1 g) by mouth once daily. Active omeprazole 40 mg Cap-DR (1 source) Start: 2 take 1 capsule by mouth once daily omeprazole 40 mg Cap-DR 40 mg = 1 cap(s), Oral, Daily, Refills(s) 0 Start Date: 12/07/21 Status: Ordered Omeprazole 40 mg capsule,delayed release(DR/EC) (1 source) Start: 4 take 1 capsule by mouth once daily before breakfast Omeprazole 40 mg capsule,delayed release(DR/EC) Active 0 .ROUTE .COMPLEX 90 July 10, 2024 6:50am TAKE 1 CAPSULE BY MOUTH ONCE DAILY 1/2 HOUR BEFORE BREAKFAST potassium citrate 99 mg oral tablet (2 sources) take 1 capsule by mouth once daily potassium citrate 99 mg capsule Take 1 capsule by mouth once daily. Active tamsulosin hydrochloride 0.4 mg oral capsule (20 sources) alpha-Adrenergic Nery Start: 7 End: 4 take 1 capsule by mouth once daily Tamsulosin 0.4 mg capsule Active 0.4 MG PO Daily October 29, 2023 1:21pm ubidecarenone 30 mg oral capsule (5 sources) take 2 capsules by mouth once daily co-enzyme Q-10 30 mg capsule Take 2 capsules (60 mg) by mouth once daily. Active take 1 capsule by mouth once ligia ly CoQ10 200 MG Oral Capsule TAKE ONE SOFTGEL BY MOUTH ONCE DAILY Quantity: 90 Refills: 3 Ordered: 05-May-2023 DO Active vitamin b12 0.25 mg oral tablet (5 sources) Vitamin B12 take 1 tablet by mouth once daily cyanocobalamin (Vitamin B-12) 250 mcg tablet Take 1 tablet (250 mcg) by mouth once daily. Active take 1 tablet by mouth once gary y Vitamin B12 1000 MCG Oral Tablet Extended Release TAKE 1 TABLET DAILY DIRECTED. Quantity: 0 Refills: 0 Ordered: 05-May-2023 DO Active Vitamin D 1000 intl units (25 mcg) Tab (1 source) Start: 12-12-2021 take 1 tablet by mouth once daily Vitamin D 1000 intl units (25 mcg) Tab 25 mcg = 1 tab(s), Oral, Daily, Refills(s) 0 Start Date: 12/12/21 Status: Ordered zinc gluconate 50 mg oral tablet (5 sources) take 1 tablet by mouth once daily zinc gluconate 50 mg tablet Take 1 tablet (50 mg of elemental zinc) by mouth once daily. Active Completed/Discontinued Medications Medication Drug Class(es) Dates Sig [...] 2023 12:00am November 06, 2023 7:11pm Start: 09-02-2017 End: 04-26-2024 take 1 tablet by mouth once daily amLODIPine 5 mg Tab 5 mg = 1 tab(s), Oral, Daily, Refills(s) 0 Start Date: 12/07/21 Status: Ordered Docosahexaenoate (1 source) End: 04-26-2024 take 1 tablet by mouth once daily DOCOSAHEXAENOIC ACID ORAL Take 1 tablet by mouth once daily. 04/26/2024 Discontinued (Therapy completed) docosahexaenoic acid 120 mg / eicosapentaenoic acid 180 mg oral capsule (3 sources) take 1 capsule by mouth once daily [place]-3 Fish Oil 1000 MG Oral Capsule TAKE [...] omeprazole 40 mg delayed release oral capsule (20 sources) Proton Pump Inhibitor Start: 08-09-2017 End: 07-10-2024 take 1 capsule by mouth once daily Omeprazole 40 mg capsule,delayed release(DR/EC) Discontinued 40 MG PO Daily January 19, 2024 11:00pm July 10, 2024 6:50am potassium 99 mg extended release oral tablet [...] above: Abdominal US: 2.9cm - 06/2024 Asthma (18 sources) Asthma; Translations: [Mild intermittent asthma] Onset: 07-02-2023 12-07-2021 Chronic Chronic kidney disease (5 sources) Chronic kidney disease; Translations: [Chronic kidney disease, unspecified] Onset: 04-26-2024 07-26-2024 Chronic Chronic kidney disease (2 sources) Chronic kidney disease; Translations: [Chronic kidney disease, stage 3a (Multi)] Onset: 04-26-2024 Conditions associated with dizziness or vertigo (8 sources) Dizziness and giddiness; Translations: [Dizziness] Onset: 04-26-2024 Episodic Coronary atherosclerosis and other heart disease (20 sources) Coronary arteriosclerosis; Translations: [Atherosclerotic heart disease of [place] coronary artery without angina pectoris] Onset: 02-27-2019 12-07-2021 Chronic Deficiency and other anemia (12 sources) Anemia; Translations: [Anemia, unspecified] Episodic Diabetes mellitus with complications (20 sources) Type 2 diabetes mellitus; Translations: [Type 2 diabetes mellitus with diabetic polyneuropathy] Onset: 01-15-2023 Chronic Diabetes mellitus without complication (20 sources) Diabetes mellitus; Translations: [Type 2 diabetes mellitus] Onset: 12-29-2019 12-07-2021 Chronic Disorders of lipid metabolism (20 sources) Pure hypercholesterolemi a; Translations: [Pure hypercholesterolemi a, unspecified] Onset: 12-29-2019 12-07-2021 Chronic Esophageal disorders (15 sources) Gastro-esophageal reflux disease with esophagitis; Translations: [Gastroesophageal reflux disease] Onset: 07-02-2023 12-07-2021 Chronic Esophageal disorders (11 sources) Esophageal disorders; Translations: [Gastroesophageal reflux disease with esophagitis without hemorrhage] Onset: 07-02-2023 Essential hypertension (20 sources) Hypertensive disorder; Translations: [Essential hypertension] Onset: 02-27-2019 12-07-2021 Chronic Genitourinary symptoms and ill-defined conditions (14 sources) Polyuria; Translations: [Polyuria] Episodic Hyperplasia of prostate (19 sources) Nocturia due to benign prostatic hypertrophy; [...] sources) Long-term current use of insulin; Translations: [[facility] (current) use of insulin] Episodic Other aftercare (6 sources) [facility] (current) use of insulin; Translations: [[employer] 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 INSULIN] Onset: 09-04-2022 Episodic Other aftercare (2 sources) Long-term current use of drug therapy; Translations: [Other long term care administrator (current) drug therapy] Episodic Other aftercare (2 sources) Other long term care administrator (current) drug therapy; Translations: [Other long term care administrator (current) drug therapy] Onset: 04-26-2024 Episodic Other injuries and conditions due to external causes (2 sources) History of fall; Translations: [History of falling] Episodic Other nutritional; endocrine; and metabolic disorders (6 sources) Hypomagnesemia; Translations: [Hypomagnesemia] Onset: 07-02-2023 12-07-2021 Chronic Other nutritional; endocrine; and metabolic disorders (14 [...] Da te Episodic/Chronic Deficiency and other anemia (6 sources) Pernicious anemia; Translations: [Vitamin B12 deficiency anemia due to intrinsic factor deficiency] Onset: 07-02-2023 12-07-2021 Episodic Deficiency and other anemia (5 sources) Anemia, unspecified; Translations: [ANEMIA UNSPECIFIED] Onset: 02-21-2022 Episodic Inflammatory conditions of male genital organs (2 sources) Acute prostatitis; Translations: [Acute prostatitis] Resolved: 03-18-2022 Episodic Nonspecific chest pain (3 sources) Chest discomfort; Translations: [Other chest pain] Onset: 06-24-2023 Episodic Other aftercare (3 sources) Treatment changed; Translations: [Other long term care administrator (current) drug therapy] Onset: 04-26-2024 04-26-2024 Episodic Other and unspecified benign neoplasm (20 sources) History of polyp of colon; Translations: [Personal history of colonic polyps] Onset: 12-12-2021 Episodic Other nutritional; endocrine; and metabolic disorders (4 sources) Body mass index 25-29 - overweight; Translations: [Overweight] Onset: 07-02-2023 12-12-2021 Episodic Residual codes; unclassified (3 sources) Family history of aneurysm of artery; Translations: [Family history of ischemic heart disease and other diseases of the circulatory system] Onset: 04-26-2024 04-26-2024 Episodic Residual codes; unclassified (3 sources) Never smoked tobacco; Translations: [Other specified health status] Onset: 04-26-2024 04-26-2024 Episodic Unclassified (4 sources) Infrarenal abdominal aortic aneurysm (AAA) without rupture I71.43 Unclassified (3 sources) Patient status finding; Translations: [Patient new to provider] Unclassified (3 sources) Never smoked tobacco; Translations: [Never a smoker] Unclassified (1 source) Abdominal aortic aneurysm, without rupture, unspecified (CMS-HCC); Translations: [Abdominal aortic aneurysm, without rupture, unspecified (CMS-HCC)] Onset: 04-26-2024 Unclassified (2 sources) Onset: 04-26-2024 04-26-2024 Results Test Name Value Interpretation Reference Range Facility US aortaon 06-15-2024 US aorta [facility] [address] [place] [address] Ultrasound Report Signed Patient: Olman Hamlin MR#: [id number] : 1945 Acct:[id number] Age/Sex: 78 / M ADM Date: 06/15/24 Loc: [facility] Room: Type: [facility] Attending Dr: Ruy Macias MD Ordering Provider: Ruy Macias MD Date of Service: 06/15/24 US/US aorta: I71.4 Copies to: Ruy Macisa MD ULTRASOUND OF THE ABDOMINAL AORTA: CLINICAL [...] Ruy Macias M.D.06/15/2024 10:36 AM Dictation Location: [place] [address] Tech: Sandra Ha Transcribed By: CATA 06/15/24 1036 Dictated By: Ruy Macias MD 06/15/24 1034 Signed By: 06/15/24 1036 Normal [facility] US CAROTID ARTERY DUPLE X BILATERALon 05-24-2024 [facility] US CAROTID ARTERY DUPLEX BILATERAL [address], [address] [place] [address] Vascular Lab Report [facility] US CAROTID ARTERY DUPLEX BILATERAL Patient Name: OLMAN HAMLIN Reading Physician: [id number] Rafaela Villagomez MD, [facility] Study Date: 05/24/2024 Ordering Provider: [id number] JEYSON HUANG MRN/PID: [id number] Fellow: Technologist: Makayla Smalls [facility], T Date of /Age: 11 1945 / 78 years Technologist 2: Gender: M Admission Status: Outpatient Location Performed: [facility] Diagnosis/ICD: Dizziness and giddiness-R42 Indication: Diabetes, HTN, Hyperlipidemia, CAD, AAA, MARIA T, Overweight CPT Codes: 52131 Cerebrovascular Carotid Duplex scan complete CONCLUSIONS: Right [...] cm/s Right Left ICA/CCA Ratio 1.1 1.1 [id number] Rafaela Villagomez MD, FACC Final [facility] NUCLEAR STRESS TESTon 2022 NUCLEAR STRESS TEST Interpreted By: Rafaela Villagomez, and Matilde Noel STUDY: MYOCARDIAL PERFUSION STRESS TEST WITH EXERCISE CONVERTED TO LEXISCAN Performing facility: [facility], [address], [address], [place] [address] [facility] Provider: Jeyson Huang MD, [facility] PCP: Dr. Cecil Pace Supervising provider: [facility], [facility] INDICATION: CAD; Chest discomfort HISTORY: Gender: M; Age: 77 y/o ; Height: HT 180.3 cm cm; Weight: WT 91.173 kg kg. CAD; Diabetes; Chest Pain; HTN; Denies smoking. Cardiac catheterization on 2005. PTCA on 2005. COMPARISON: Previous nuclear testing completed [id number] at [facility]. ACCESSION NUMBER(S): [id number] ORDERING CLINICIAN: JEYSON HUANG TECHNIQUE: ONE DAY [...] Rafaela Villagomez 06/24/2023 12:45 PM Dictation workstation: [id number] [facility] Comment on above: Order Comment: Reji Ingram elected: Y US.doppler [facility] 06-24-[address], [address] [place] [address] Vascular Lab Report Abdominal Aorta Iliac Ultrasound/IVC Ultrasound Patient Name: OLMAN [facility] Reading Physician: [id number] Rafaela Villagomez MD, [facility] Study Date: 06/24/2023 Ordering Provider: [id number] JEYSON HUANG MRN/PID: [id number] Fellow: Technologist: Makayla Smalls RD, [facility] Date of /Age: 11 1945 / 77 years Technologist 2: Gender: M Admission Status: Outpatient Location Performed: [facility] Diagnosis/ICD: Essential primary hypertension-I10 Indication: AAA, CAD, [...] Proximal 0.68 cm 1.06 cm 107.00 cm/s Isabella Villagomez MD, FACC Final Rafaela Vallecillo M D - 06/24/[address], [address], [place] [address] Vascular Lab Report Abdominal Aorta Iliac Ultrasound/IVC Ultrasound Patient Name: OLMAN HAMLIN Celestine Physician: Isabella Villagomez MD, FACC Study Date: 06/24/2023 Ordering Provider: [id number] JEYSON HUANG MRN/PID: [id number] Fellow: Technologist: Makayla Smalls RD, T Date of /Age: 11 1945 / years Technologist 2: Gender: M Admission Status: Outpatient Location Performed: [facility] Diagnosis/ICD: Essential primary hypertension-I10 Indication: AAA, CAD, [...] Proximal 0.68 cm 1.06 cm 107.00 cm/s Isabella Villagomez MD, FACC Final [facility] Work Phone: Radiology Study observation (narrative) [facility] Work Phone: US.doppler Aorta and Iliac a rtery - bilateralOrdered By: Rafaela Villagomez on 06-24-2023 [facility] Work Phone: VASC US AORTA ILIAC DUPLEX C OMPLETEon 06-24-2023 VASC US AORTA ILIAC DUPLEX COMPLETE [address], [address], [place] [address] Vascular Lab Report Abdominal Aorta Iliac Ultrasound/IVC Ultrasound Patient Name: OLMAN HAMLIN Reading Physician: [id number] Rafaela Villagomez MD, FAC Study Date: 06/24/2023 Ordering Provider: [id number] JEYSON HUANG MRN/PID: [id number] Fellow: Technologist: Makayla Smalls RDCS, T Date of /Age: 11 1945 / 77 years Technologist 2: Gender: M Admission Status: Outpatient Location Performed: [facility] Diagnosis/ICD: Essential primary hypertension-I10 Indication: AAA, CAD, [...] Proximal 0.68 cm 1.06 cm 107.00 cm/s [id number] Rafaela Villagomez MD, FACC Final [facility] Office Visit (Cardiology)on 05-05-2023 Follow-up visit Diagnoses/Problems [...] Blood Count; Status:Active - Retrospective Authorization; Requested for:[id number]; Comprehensive Metabolic Panel; Status:Active - Retrospective Authorization; Requested for:[id number]; Hemoglobin A1C; Status:Active - Retrospective Authorization; Requested for:[id number]; Lipid Panel; Status:Active - Retrospective Authorization; Requested for:[id number]; Overweight with body mass index (BMI) of 28 to 28.9 in adult Healthy Weight Tips; Status:Complete - Retrospective Authorization; Done: [id number] IO EKG Electrocardiogram- 12 Lead; Status:Complete; Done: [id number] Some eating tips that can help you lose weight.; Status:Complete - Retrospective Authorization; Done: [id number] SocHx: Never a smoker Tobacco Use Screening; Status:Complete; Done: [id number] Patient Instructions Please bring all medicines, vitamins, [...] establish cardiology care. Has history of atherosclerotic [place] vessel coronary artery disease and multiple risk [...] shows normal sinus rhythm at 63 bpm [place] interval 162 ms QRS duration 84 ms QTc 407 ms, there is evidence of left atrial abnormality. History so far : 1. Atherosclerotic [place] vessel coronary artery disease-patient says that whenever [...] Patient brou (more content not included)... Normal [employer] [facility] Tobacco Screening.on 023 Adult depression screening assessment No [facility] [address] DO Work Phone: Fall risk assessment a) No falls within the last year [facility] [address] DO Work Phone: Tobacco use status [facility] b) No [facility] [address] DO Work Phone: GLYCOHEMOGLOBIN A1Con 2022 ADA RECOMMENDATION SEE BELOW Normal [facility] Comment on above: Result Comment: ADA RECOMMENDED LIMIT 4.0 - 6.0 ADA THERAPEUTIC TARGET < 7.0 ACTION SUGGESTED > 7.0 Performed By: #### A 1C #### [facility] [address] [place] [address] Dr. Julianne Patel Glucose [Mass/Vol] 157 mg/dL Normal [facility] Comment on above: Performed By: #### A 1C #### [facility] [address] [place] [address] [address] Julianne Patel HbA1c (Bld) [Mass fraction] 7.1 % Critically high 4.5-6.2 [facility] Comment on above: Performed By: #### A 1C #### [facility] [address] [place] [address] [address] Julianne Patel GLYCOHEMOGLOBIN A1Con 2021 ADA RECOMMENDATION SEE BELOW Normal [facility] Comment on above: Result Comment: ADA RECOMMENDED LIMIT 4.0 - 6.0 ADA THERAPEUTIC TARGET < 7.0 ACTION SUGGESTED > 7.0 Performed By: #### A 1C #### [facility] [address] [place] [address] Dr. Julianne Patel Glucose [Mass/Vol] 154 mg/dL Normal [facility] Comment on above: Performed By: #### A 1C #### [facility] [address] [place] [address] Dr. Julianne Patel HbA1c (Bld) [Mass fraction] 7.0 % Critically high 4.5-6.2 [facility] Comment on above: Performed By: #### A 1C #### [facility] [address] [place] [address] Dr. Julianne Patel US ABD AORTA SCREENINGon [...] SHILPI FIORE Date: 2022-04-20 09:07 Normal [facility] FOLATE ([facility])on 2 Folate 13.5 ng/mL Normal >3.0 [facility] Comment on above: Result Comment: A se rum folate concentration of less than 3.1 ng/mL is considered to represent clinical deficiency. Performed By: #### F OLALC #### [facility] [address] [place] [address] Dr. Julianne Patel CBC AUTO DIFFon 02-21-2022 BASO # 0.1 103/ul Normal 0.0-0.1 [facility] Comment on above: Performed By: #### C BC #### [facility] [address] [place] [address] Dr. Julianne Patel Basophils/100 WBC (Bld) 1.2 % Normal 0.2-2.0 [facility] Comment on above: Performed By: #### C BC #### [facility] [address] [place] [address] Dr. Julianne Patel EO # 0.2 103/ul Normal 0.0-0.7 [facility] Comment on above: Performed By: #### C BC #### [facility] [address] [place] [address] Dr. Julianne Patel Eosinophils/100 WBC (Bld) 4.1 % Normal 0.9-7.0 [facility] Comment on above: Performed By: #### C BC #### [facility] [address] [place] [address] Dr. Julianne Patel Erythrocyte distribution width (RBC) [Ratio] 12.7 % Normal 11.0-15.0 [facility] Comment on above: Performed By: #### C BC #### [facility] [address] [place] [address] Dr. Julianne Patel Hematocrit (Bld) [Volume fraction] 37.8 % Critically low 42.0-54.0 [facility] Comment on above: Performed By: #### C BC #### [facility] [address] [place] [address] Dr. Julianne Patel Hemoglobin (Bld) [Mass/Vol] 12.1 g/dL Critically low 14.0-18.0 [facility] Comment on above: Performed By: #### C BC #### [facility] [address] [place] [address] Dr. Julianne Patel IG # 0.02 10e3/ul Normal 0.00-0.03 [facility] Comment on above: Performed By: #### C BC #### [facility] [address] [place] [address] Dr. Julianne Patel IG % 0.4 % Normal 0.0-0.5 [facility] Comment on above: Performed By: #### C BC #### [facility] [address] [place] [address] Dr. Julianne Patel LYMPH # 1.2 103/ul Normal 1.2-3.8 [facility] Comment on above: Performed By: #### C BC #### [facility] [address] [place] [address] Dr. Julianne Patel Lymphocytes/100 WBC (Bld) 23.1 % Normal 20.5-60.0 [facility] Comment on above: Performed By: #### C BC #### [facility] [address] [place] [address] Dr. Julianne Patel MANUAL DIFF REQ NO Normal [facility] Comment on above: Performed By: #### C BC #### [facility] [address] [place] [address] Dr. Julianne Patel MCH (RBC) [Entitic mass] 30.9 pg Normal 25.9-34.0 [facility] Comment on above: Performed By: #### C BC #### [facility] [address] [place] [address] Dr. Julianne Patel MCHC (RBC) [Mass/Vol] 32.0 g/dL Normal 29.9-35.2 [facility] Comment on above: Performed By: #### C BC #### [facility] [address] [place] [address] Dr. Julianne Patel MCV (RBC) [Entitic vol] 96.7 fL Critically high 80.0-94.0 [facility] Comment on above: Performed By: #### C BC #### [facility] [address] [place] [address] Dr. Julianne Patel MONO # 0.5 103/ul Normal 0.3-0.8 [facility] Comment on above: Performed By: #### C BC #### [facility] [address] [place] [address] Dr. Julianne Patel Monocytes/100 WBC (Bld) 10.3 % Normal 1.7-12.0 [facility] Comment on above: Performed By: #### C BC #### [facility] [address] [place] [address] Dr. Julianne Patel NEUT # 3.1 103/ul Normal 1.4-6.5 [facility] Comment on above: Performed By: #### C BC #### [facility] [address] [place] [address] Dr. Julianne Patel Neutrophils/100 WBC (Bld) 60.9 % Normal 43.0-75.0 [facility] Comment on above: Performed By: #### C BC #### [facility] [address] [place] [address] Dr. Julianne Patel Platelet mean volume (Bld) [Entitic vol] 11.2 fL Normal 9.5-13.5 [facility] Comment on above: Performed By: #### C BC #### [facility] [address] [address] [address] Julianne Patel PLT 155 103/ul Normal 150-450 [facility] Comment on above: Performed By: #### C BC #### [facility] [address] [place] [address] Dr. Julianne Patel RBC 3.91 106/ul Critically low 4.70-6.10 [facility] Comment on above: Performed By: #### C BC #### [facility] [address] [place] [address] Dr. Julianne Patel WBC 5.2 103/ul Normal 4.0-11.0 [facility] Comment on above: Performed By: #### C BC #### [facility] [address] [place] [address] Dr. Julianne Patel FERRITINon 02-21-2022 Ferritin [Mass/Vol] 47.0 ng/mL Normal 26.0-388.0 [facility] Comment on above: Performed By: #### F ETIBC, VITB12, FERR #### [facility] [address] [place] [address] Dr. Julianne Patel IRON AND TIBCon 02-21-2022 % SATURATION 27.5 % Normal [facility] Comment on above: Performed By: #### F ETIBC, VITB12, FERR #### [facility] [address] [place] [address] Dr. Julianne Patel Iron [Mass/Vol] 90.0 ug/dL Normal 65.0-175.0 [facility] Comment on above: Performed By: #### F ETIBC, VITB12, FERR #### [facility] [address] [place] [address] Dr. Julianne Patel TIBC DIRECT 327.0 ug/dL Normal 250.0-450.0 [facility] Comment on above: Performed By: #### F ETIBC, VITB12, FERR #### [facility] [address] [address] [address] Julianne Patel VITAMIN B12on 02-21-2022 Cobalamin (Vitamin B12) [Mass/Vol] 578.0 pg/mL Normal 193.0-986.0 [facility] Comment on above: Performed By: #### F ETIBC, VITB12, FERR #### [facility] [address] [address] [address] Julianne Patel Outside Colonoscopyon 2021 Outside Colonoscopy [id number]:127 [facility] Reminderson 01-17-2022 Reminders - From: Lucrecia Rachel LPN To: N - Clinical; Sent: 01/17/2022 09:15:41 EDT Show up: 12/17/2026 07:00:00 EDT Subject: colonoscopy recall Due Date/Time: 01/16/2027 07:00:00 EDT Reminder/Recall Patient is due for colonoscopy 01/16/2027 due to history of colonic polyps. Normal [facility] Lab Reportson 01-15-2022 Lab Reports [id number]:127 Normal [facility] Pre-Certification Formon Pre-Certification Form [id number]#[id number]:127 Normal [facility] Consent for Procedure/Surger yon 12-13-2021 Consent for Procedure/Surgery [id number]:127 Normal [facility] Ambulatory Visit Summaryon 0 12-12-2021 Ambulatory Visit [...] sleep apnea) Pernicious anemia Pure hypercholesterolemia Normal [facility] Transfer Inon 12-10-2021 Transfer In [id number]:127 Normal [facility] Physician Referralon 022 Physician Referral [id number]:127 Normal [facility] Vital Signs Date Time Vital Sign Value Performing Clinician Facility 07-26-2024 11:10-0500 Body height 180.34 cm [facility] 07-26-2024 11:10-0500 Body mass index (BMI) [Ratio] 27.6 kg/m2 [facility] 07-26-2024 11:10-0500 Body weight 90.03 kg [facility] 07-26-2024 11:10-0500 Diastolic blood pressure 73 mm[Hg] [facility] 07-26-2024 11:10-0500 Heart rate 56 /min [facility] 07-26-2024 11:10-0500 Respiratory rate 12 /min [facility] 07-26-2024 11:10-0500 Systolic blood pressure 194 mm[Hg] [facility] 06-15-2024 09:51-0400 Body height 180.34 cm [facility] 06-15-2024 09:51-0400 Body mass index (BMI) [Ratio] 27.8 kg/m2 [facility] 06-15-2024 09:51-0400 Body temperature 96.3 [degF] [facility] 06-15-2024 09:51-0400 Body weight 90.71 kg [facility] 06-15-2024 09:51-0400 Diastolic blood pressure 58 mm[Hg] [facility] 06-15-2024 09:51-0400 Heart rate 50 /min [facility] 06-15-2024 09:51-0400 SaO2% (BldA) [Mass fraction] 97 % [facility] 06-15-2024 09:51-0400 Systolic blood pressure 160 mm[Hg] [facility] 06-01-2024 09:54-0400 Body height 180.34 cm [facility] 06-01-2024 09:54-0400 Body mass index (BMI) [Ratio] 27.8 kg/m2 [facility] 06-01-2024 09:54-0400 Body temperature 96.1 [degF] [facility] 06-01-2024 09:54-0400 Body weight 90.71 kg [facility] 06-01-2024 09:54-0400 Diastolic blood pressure 60 mm[Hg] [facility] 06-01-2024 09:54-0400 Heart rate 63 /min [facility] 06-01-2024 09:54-0400 SaO2% (BldA) [Mass fraction] 95 % [facility] 06-01-2024 09:54-0400 Systolic blood pressure 154 mm[Hg] [facility] 04-26-2024 11:23-0400 Diastolic blood pressure 58 mm[Hg] Jeyson Huang MD Work Phone: [facility] 04-26-2024 11:23-0400 Systolic blood pressure 128 mm[Hg] Jeyson Huang MD Work Phone: [facility] 04-26-2024 11:20-0400 Body height 181.6 cm Jeyson Huang MD Work Phone: [facility] 04-26-2024 11:20-0400 Body mass index (BMI) [Ratio] 27.95 kg/m2 Jeyson Huang MD Work Phone: [facility] 04-26-2024 11:20-0400 Body weight 92.17 kg Jeyson Huang MD Work Phone: [facility] 04-26-2024 11:20-0400 Heart rate 60 /min Jeyson Huang MD Work Phone: [facility] 07-23-2023 10:00-0500 Body height 180.34 cm Dallin Ball Other [facility] [employer] Other 07-23-2023 10:00-0500 Body mass index (BMI) [Ratio] 28.62 kg/m2 Dallin Ball Other [facility] [employer] Other 07-23-2023 10:00-0500 Body weight 93.08 kg Dallin Ball Other [facility] [employer] Other 07-23-2023 10:00-0500 Diastolic blood pressure 66 mm[Hg] Dallin Ball Other [facility] [employer] Other 07-23-2023 10:00-0500 Respiratory rate 12 /min Dallin Ball Other [facility] [employer] Other 07-23-2023 10:00-0500 Systolic blood pressure 151 mm[Hg] Dallin Ball Other [facility] [employer] Other 05-05-2023 12:25-0400 Diastolic blood pressure 66 mm[Hg] Dallin E Ball Work Phone: [facility] 250 DO Work Phone: 05-05-2023 12:25-0400 Heart rate 64 /min Dallin E Ball Work Phone: [facility] 250 DO Work Phone: 05-05-2023 12:25-0400 Systolic blood pressure 138 mm[Hg] Dallin E Ball Work Phone: [facility] 250 DO Work Phone: 05-05-2023 11:49-0400 Diastolic blood pressure 64 mm[Hg] Dallin E Ball Work Phone: [facility] 250 DO Work Phone: 05-05-2023 11:49-0400 Systolic blood pressure 156 mm[Hg] Dallin E Ball Work Phone: [facility] 250 DO Work Phone: 05-05-2023 11:48-0400 Body height 180.34 cm Dallin E Ball Work Phone: [facility] 250 DO Work Phone: 05-05-2023 11:48-0400 Body mass index (BMI) [Ratio] 28.03 kg/m2 Dallin E Ball Work Phone: [facility] 250 DO Work Phone: 05-05-2023 11:48-0400 Body surface area Derived from formula 2.11 m2 Dallin E Ball Work Phone: [facility] 250 DO Work Phone: 05-05-2023 11:48-0400 Body weight 91.17 kg Dallin E Ball Work Phone: [facility] 250 DO Work Phone: 05-05-2023 11:48-0400 Diastolic blood pressure 70 mm[Hg] Dallin E Ball Work Phone: [facility] 250 DO Work Phone: 05-05-2023 11:48-0400 Heart rate 63 /min Dallin E Ball Work Phone: [facility] [employer] 250 DO Work Phone: 05-05-2023 11:48-0400 Systolic blood pressure 168 mm[Hg] Dallin E Ball Work Phone: [facility] [employer] 250 DO Work Phone: 01-20-2023 11:30-0400 Body height 180.34 cm Dallin Ball Other [employer] Other 01-20-2023 11:30-0400 Body mass index (BMI) [Ratio] 28.14 kg/m2 Dallin Ball Other [employer] Other 01-20-2023 11:30-0400 Body weight 91.54 kg Dallin Ball Other [facility] [employer] Other 01-20-2023 11:30-0400 Diastolic blood pressure 70 mm[Hg] Dallin Ball Other [employer] Other 01-20-2023 11:30-0400 Respiratory rate 12 /min Dallin Ball Other [employer] Other 01-20-2023 11:30-0400 Systolic blood pressure 152 mm[Hg] Dallin Ball Other [employer] Other 10-21-2022 11:00-0500 Body height 180.34 cm Dallin Ball Other [employer] Other 10-21-2022 11:00-0500 Body mass index (BMI) [Ratio] 28.53 kg/m2 Dallin Ball Other [employer] Other 02-13-2023 11:00-0500 Body weight 92.81 kg Dallin Pace Other [employer] Other 10-21-2022 11:00-0500 Diastolic blood pressure 62 mm[Hg] Dallin Pace Other [employer] Other 10-21-2022 11:00-0500 Respiratory rate 12 /min Dallin Pace Other [employer] Other 10-21-2022 11:00-0500 Systolic blood pressure 116 mm[Hg] Dallin Pace Other [employer] Other 12-12-2021 14:23-0400 Blood Pressure Location Bert NILL [facility] 12-12-2021 14:23-0400 Diastolic blood pressure 70 mm[Hg] [facility] N[facility] 12-12-2021 14:23-0400 Heart rate 68 /min Bert NILL [facility] 12-12-2021 14:23-0400 Respiratory rate 16 /min Bert NILL [facility] 12-12-2021 14:23-0400 Systolic blood pressure 140 mm[Hg] Bert NILL [facility] Encounters Encounter Date Encounter Type Care Provider Facility Start: 07-26-2024 End: 07-26-2024 ambulatory [facility] Work Phone: Start: 07-26-2024 End: 07-26-2024 Patient encounter procedure [facility] Work Phone: Start: 07-21-2024 Non-patient / Non-visit [facility] Work Phone: Start: 06-15-2024 End: 06-15-2024 [facility] Work Phone: Start: 06-15-2024 End: 06-15-2024 ambulatory Dallin Pace [facility] Work Phone: Start: 06-01-2024 End: 06-01-2024 ambulatory [facility] Work Phone: Start: 06-01-2024 End: 06-01-2024 Patient encounter procedure [facility] y[facility] Surgery Work Phone: Start: 05-24-2024 End: 05-24-2024 Subsequent hospital visit by physician Rhea Neri Echo/Vasc Room 2 [facility] Comment on above: Dizziness Start: 05-24-2024 End: 05-24-2024 ambulatory [facility] Start: 04-26-2024 End: 04-26-2024 Office outpatient visit 25 minutes Jeyson Huang MD Work Phone: [facility] Comment on above: Benign essential hyp ertension; Primary hypertension; Type 2 diabetes mellitus with other specified complication, with long-term current use of insulin (Multi); Abdominal aortic aneurysm (AAA) without rupture, unspecified part ([facility]); Mixed hyperlipidemia; Stage 3a chronic kidney disease (Multi); Arteriosclerosis of coronary artery; Family history of aneurysm; Gastroesophageal reflux disease with esophagitis, unspecified whether hemorrhage; Coronary arteriosclerosis in [place] artery; Medication course changed; Never smoked cigarettes; Dizziness Start: 04-26-2024 End: 04-26-2024 ambulatory [facility] Start: 10-06-2023 End: 10-06-2023 ambulatory Dallin Pace Other [employer] Other Start: 10-06-2023 Telephone encounter Dallin Pace [facility] Start: 07-23-2023 End: 07-23-2023 ambulatory Dallin Pace Other [employer] Other Start: 07-23-2023 Office outpatient vi sit 25 minutes Dallin Pace [facility] Start: 07-10-2023 End: 07-10-2023 ambulatory Dallin Pace Other [employer] Other Start: 07-10-2023 Telephone encounter Dallin MOORE [facility] Start: 07-02-2023 End: 07-02-2023 ambulatory Dallin Pace Other [employer] Other Start: 07-02-2023 Telephone encounter Dallin MOORE Sanjeev [facility] Start: 06-24-2023 End: 06-24-2023 Subsequent hospital visit by physician Rhea Neri Echo/Vasc Room 2 [facility] Comment on above: Benign hypertension; Atherosclerosis of [place] coronary artery, unspecified whether angina present, unspecified whether [place] or transplanted heart Start: 06-24-2023 End: 06-24-2023 ambulatory [facility] Start: 06-24-2023 End: 06-24-2023 Encounter for general adult medical examination without abnormal findings [facility] Start: 05-07-2023 Telephone encounter Dallin Pace Work Phone: [facility] 250 DO Work Phone: Start: 05-05-2023 Office outpatient vi sit 25 minutes Dallin Pace Work Phone: [facility] 250 DO Work Phone: Start: 05-05-[address] Jeyson Zhaoi ty: Start: 01-20-2023 End: 01-20-2023 ambulatory Dallin Pace Other [employer] Other Start: 01-20-2023 Office outpatient vi sit 25 minutes Dallin Pace [facility] Start: 01-15-2023 End: 01-16-[address] DALLIN PACE Facility:[facility] Start: 12-10-2022 End: 12-10-2022 ambulatory Dallin Pace Other [employer] Other Start: 12-10-2022 Telephone encounter Dallin Pace [facility] Start: 12-03-2022 End: 12-03-2022 ambulatory Dallin Pace Other [employer] Other Start: 12-03-2022 Telephone encounter Dallin Pace [facility] Start: 10-21-2022 End: 10-21-2022 ambulatory Dallin Pace Other [employer] Other Start: 10-21-2022 Office outpatient vi sit 25 minutes Dallin Pace [facility] Start: 10-04-2022 End: 10-04-2022 ambulatory Dallin Pace Other [employer] Other Start: 10-04-2022 Telephone encounter Dallin Pace [facility] Start: 09-24-2022 End: 09-24-2022 ambulatory Dallin Pace Other [employer] Other Start: 09-24-2022 Telephone encounter Dallin Pace [facility] Start: 09-16-2022 End: 09-16-2022 ambulatory Dallin Pace Other [employer] Other Start: 09-16-2022 Telephone encounter Dallin Pace [facility] Start: 08-28-2022 End: 08-29-[address] DALLIN PACE Facility:[facility] Start: 04-20-2022 End: 04-21-[address] DALLIN PACE Facility:[facility] Start: 02-21-2022 End: 02-22-[address] DALLIN PACE Facility:[facility] Start: 12-12-2021 End: 12-12-2021 Patient encounter procedure Bert HENLEY [facility] Procedures Date Procedure Procedure Detail Performing Clinician Start: 06-24-2023 NUCLEAR STRESS TEST DALLIN PACE Start: 06-24-2023 VASC US AORTA ILIAC DUPLEX COMPLETE CORINA ANETA PACE Start: 06-24-2023 Dup-scan aorta ivc iliac vascl/bpgs complete Jeyson Huang MD Work Phone: Start: 01-06-2022 Total colonoscopy Dallin Pace Work Phone: Start: 08-26-2014 Colonoscopy Bert HENLEY Start: 02-07-2012 Esophagogastroduodenoscopy Bert HENLEY Start: 09-08-2008 Colonoscopy Bert HENLEY Cholecystectomy Bert HENLEY Cholecystectomy Dallin jones Work Phone: Depression screening Ava Pace Other Percutaneous coronary intervention Bert HENLEY Percutaneous translu heidi coronary angioplasty Dallin Domingo Sanjeev Work Phone: Tonsillectomy Dallin Chayo buchanan Work Phone: Tonsillectomy and adenoidectomy Bert HENLEY Plan of Treatment Date Care Activity Detail Author Start: 10-28-2024 End: 10-28-2024 Patient encounter procedure 10/28/2024 11:30 AM EST Office Visit [address] [id number] Jeyson Huang MD [address] [facility] [address] [place] [address] [facility] Start: 05-24-2024 End: 05-24-2024 Patient encounter procedure 05/24/2024 9:45 AM EDT Appointment [address] [address] [facility] Start: 05-09-2024 COVID-19 Vaccine () COVID-19 Vaccine ( season) [facility] Start: 05-09-2024 Influenza vaccination Influenza Vacc ine (#1) [facility] Start: 04-26-2024 End: 04-26-2026 US.doppler Carotid arteries - bilateral Vascular US Carotid Artery Duplex Bilateral Vascular Ultrasound Routine Dizziness Expected: 04/26/2024 (Approximate), Expires: 04/26/2026 [facility] Work Phone: Comment on above: Expected: 04/26/2024 (Approximate), Expires: 04/26/2026 Start: 04-26-2024 FUV, Provider: Jeyson Huang, Status: Pen, Time: 11:30 AM FUV, Provider: Jeyson Huang, Status: Pen, Time: 11:30 AM [facility] 250 DO Work Phone: Start: 04-26-2024 End: 04-26-2024 Patient encounter procedure 04/26/2024 11:30 AM EDT Office Visit [facility] [address] [facility] [address] [place] [address] Jeyson Huang MD [address] [facility] [address] [place], [place] [id number] [facility] Start: 05-09-2023 COVID-19 Vaccine ( season) COVID-19 Vaccine ( season) [facility] Start: 05-09-2023 Influenza vaccination Influenza Vacc ine (#1) [facility] Start: 09-13-2021 Urine screening for protein Diabetes: Urine Protein Screening [facility] Start: 04-10-2021 Hemoglobin A1c measurement Diabetes: Hemoglobin A1C [facility] Start: 2005 RSV patient s and/or patients aged 60+ years (1 - 1-dose 60+ series) RSV patients and/or patients aged 60+ years (1 - 1-dose 60+ series) [facility] Start: 1995 Zoster Vaccines (1 o f 2) Zoster Vaccines (1 of 2) [facility] Start: 1967 DTaP/Tdap/Td Vaccine s (1 - Tdap) DTaP/Tdap/Td Vaccines (1 - Tdap) [facility] Start: 1964 Urine screening for protein Diabetes: Urine Protein Screening [facility] Start: 1963 Hepatitis C screening Hepatitis C Sc reening [facility] Start: 1955 Diabetic foot examination Diabetes: Foot Exam [facility] Start: 1955 Glaucoma screening Diabetes: R etinopathy Screening [facility] Start: 1951 Pneumococcal Vaccine : 65+ Years (1 - PCV) Pneumococcal Vaccine: 65+ Years (1 - PCV) [facility] Start: 1951 Pneumococcal Vaccine : 65+ Years (1 of 2 - PCV) Pneumococcal Vaccine: 65+ Years (1 of 2 - PCV) [facility] Start: 01-27-1946 COVID-19 Vaccine (#1) COVID-19 Vacci ne (#1) [facility] Start: 1945 Lipid panel Lipid Panel [facility] Start: 1945 Medicare Annual Wellness Visit Medicare Annual Wellness Visit (AWV) [facility] US scan of abdominal aorta [facility] US.doppler Carotid arteries - bilateral [facility] End: 05-24-2024 US.doppler Carotid arteries - bilateral [facility] Service Area Work Phone: Comment on above: Once for 1 Occurrenc es starting 05/24/2024 until 05/24/2024 [facility] Immunizations Immunization Date Immunization Notes Care Provider Rohit mulligan NEGATED: Highlighted row has not occurred!12-12-2021 influenza virus vaccine, unspecified formulation Bert HENLEY [facility] Payers Date Payer Category Payer Self-pay 2023 [facility] MEDICARE [id number] 2023-Present [address] [place] [address] [id number] 1959 Medicare [id number] 1959 Medicare [id number] 1945 Unknown [id number] 1945 Unknown [id number] 2.16.840.1.262079.3.579.2.593 1945 Unknown [id number] 2.16.840.1.505703.3.579.2.593 1945 Unknown [id number] 2.16.840.1.427787.3.579.2.593 1945 Unknown [id number] 2.16.840.1.335719.3.579.2.356 1945 Unknown [id number] 2.16.840.1.039861.3.579.2.1246 1945 Unknown [id number] 2.16.840.1.809351.3.579.2.1246 1945 Unknown [id number] 2.16.840.1.178850.3.579.2.1246 1945 Unknown [id number] 2.16.840.1.720015.3.579.2.1246 1945 Unknown [id number] 2.16.840.1.671330.3.579.2.1246 1945 Unknown [id number] 2.16.840.1.824914.3.579.2.1246 1945 Unknown [id number] 2.16.840.1.871379.3.579.2.1246 1945 Unknown [id number] 2.16.840.1.546291.3.579.2.1244 Medicare [id number] [id number] Unknown [facility] Unknown [id number] [id number] Social History Date Type Detail Facility Start: 12-12-2021 End: 11-20-2023 Tobacco smoking status Never smoked tobacco (finding) [facility] Tobacco smoking status Never [facility] Start: 04-26-2024 Sex Assigned At Male [facility] Start: 04-26-2024 No alcohol use No alcohol use -Nor [facility] DO Work Phone: Comment on above: 1 pot of coffee gary y; Tobacco smoking stat [facility] Tobacco smoking consumption unknown [facility] Work Phone: Start: 1945 Sex Assigned At Not on file U [facility] Work Phone: Start: 06-14-2023 End: 05-24-2024 Exposure to SARS-CoV-2 (event) Not sure [facility] Start: 1945 Sex Assigned At Male F [facility] Start: 07-26-2024 Sex Male (finding) [facility] Start: 11-20-2023 Tobacco use and exposure Smokeless tobacco non-user [facility] Work Phone: Start: 04-26-2024 Alcoholic beverage intake Lifetime non-drinker (finding) [facility] Work Phone: Medical Equipment Procedure Code Equipment Code Equipment [...] and stenosis of bilateral carotid arteries acute Septe 2023 9:41am Abdominal aortic aneurysm, without rupture, unspecified acute June 15 9:15am Abdominal aortic aneurysm, without rupture, unspecified acute July 26, 2024 11:02am ASHD (arteriosclerotic heart disease) acute July 26, 2024 11:02am Chronic kidney disease acute No vember 2023 11:02am Hypercholesterolemia acute Nov2023 11:02am Hypertension acute July 11:02am Occlusion and stenosis of bilateral carotid arteries acute 2023 11:02am MARIA T (obstructive sleep apnea) acute July 26, 2024 11:02am Type 2 diabetes mellitus with hyperglycemia acute July 11:02am [facility] Work Phone: 1(364) 427-232708-19-2024 History of Present illness Narrative* Jeyson Huang MD - 04/26/2024 11:30 AM EDT Last seen by me October 2022, hence overdue for visit. Subjective : Reports feeling dizzy midday, usually after breakfast and/or lunch. Does not eat particularly heavymeals, usually oatmeal for breakfast. Also dizzy with sudden changes in posture. Orthostatics today 136/54 sitting 128/58 standing. Denies chest pressure tightness heaviness or palpitations. Denies TIA type symptoms. Since last visit had Lexiscan Myoview and ultrasound of the abdominal aorta and blood work History so Far : 1. Atherosclerotic [place] vessel coronary artery disease-patient says that whenever [...] , distal aorta 2.6 x 2.7 cm 10. Ultrasound of the abdominal aorta June 27-3.2 x 3 cm infrarenal abdominal aortic aneurysmwith layered thrombus measured 3.5 cm in length. The mold polisher requested a repeat study in 3 years. 11. Lexiscan Myoview June 2023-LVEF 60% transient ischemic dilatation 0.9 which is normal, normal perfusion Objective Wt Readings from Last 3 Encounters: 04/26/24 92.2 kg (203 lb 3.2 oz) 06/24/23 91.2 kg (201 lb) 05/05/23 91.2 kg (201 lb) Vitals: 04/26/24 1120 04/26/24 1123 BP: 136/54 128/58 BP Location: Right arm Right arm Patient Position: Sitting Standing Pulse: 60 Weight: 92.2 kg (203 lb 3.2 oz) Height: 1.816 m (5' 11.5 ) Physical Exam: GENERAL APPEARANCE: in no acute distress. CHEST: Symmetric and non-tender. INTEGUMENT: Skin warm and dry HEENT: No gross abnormalities identified.No pallor or scleral icterus. NECK: Supple, no JVD, no bruit. NEURO/PSHCY: Alert and oriented x3; appropriate behavior and responses and responses LUNGS: Clear to auscultation bilaterally; normal respiratory effort. HEART: Rate and rhythm regular with no evident murmur; no gallop appreciated. ABDOMEN: Soft, non tender. MUSCULOSKELETAL: No gross deformities. EXTREMITIES: Warm There is no edema noted. Meds: Current Outpatient Medications Medication Instructions albuterol 90 mcg/actuation aerosol [facility] breath activated inhaler 2 puffs, inhalation, Every 6 hours PRN ascorbic acid (VITAMIN C) 100 mg, oral, Daily aspirin 81 mg, oral atorvastatin (Lipitor) 40 mg tablet 1 tablet, oral, Daily cholecalciferol (VITAMIN D3) 1,000 Units, oral, Daily co-enzyme Q-10 60 mg, oral, Daily RT cyanocobalamin (VITAMIN B-12) 250 mcg, oral, Daily RT ferrous gluconate 28 mg, oral, Daily fluticasone (Flonase Allergy Relief) 50 mcg/actuation nasal spray 1 spray, nasal, Daily insulin lispro protamin-lispro (HumaLOG Mix 75-25,U-100,Insuln) 100 unit/mL (75- 25) suspension injection lisinopril 20 mg, oral magnesium oxide 500 mg magnesium tablet 1 tablet, oral, Daily metFORMIN (GLUCOPHAGE) 1,000 mg, oral, 2 times daily (morning and late afternoon) metoprolol tartrate (Lopressor) 50 mg tablet 1 tablet, oral, 2 times daily omega-3 acid ethyl esters (LOVAZA) 1 g, oral, Daily omeprazole (PRILOSEC) 40 mg, oral, Daily before breakfast potassium citrate 99 mg capsule 1 capsule, oral, Daily tamsulosin (FLOMAX) 0.4 mg, oral, Daily zinc gluconate 50 mg tablet 50 mg of elemental zinc, oral, Daily No Known Allergies LABS: Lab Results Component Value Date HGBA1C 8.2 (H) 01/08/2021 Laboratory data April 2024-hemoglobin 12.1 hematocrit 38 platelet count 1 58,000 sodium 138 potassium 4.6 BUN 34 creatinine 1.35 GFR 51 hemoglobin A1c 8.0 liver enzymes normal total cholesterol 160 LDL 84 HDL 40 Patient Active Problem List Diagnosis Date Noted Stage 3a chronic kidney disease (Multi) 04/26/2024 Family history of aneurysm 04/26/2024 Medication course changed 04/26/2024 Never smoked cigarettes 04/26/2024 Dizziness 04/26/2024 Abdominal aortic aneurysm (AAA) ([facility]) 07/02/2023 Asthma ([facility]) 07/02/2023 Arteriosclerosis of coronary artery 07/02/2023 Diabetes mellitus (Multi) 07/02/2023 Gastroesophageal reflux disease with esophagitis 07/02/2023 History of colonic polyps 07/02/2023 Hypertension 07/02/2023 Hypomagnesemia 07/02/2023 Nocturia associated with benign prostatic hyperplasia 07/02/2023 Obstructive sleep apnea syndrome 07/02/2023 Pure hypercholesterolemia 07/02/2023 Pernicious anemia 07/02/2023 Overweight with body mass index (BMI) 25.0-29.9 07/02/2023 Diabetes mellitus, type 2 (Multi) 12/29/2019 Mixed hyperlipidemia 12/29/2019 Benign essential hypertension 02/27/2019 Coronary arteriosclerosis in [place] artery 02/27/2019 Assessment: 1. Benign essential hypertension Follow Up In Cardiology 2. Primary hypertension 3. Type 2 diabetes mellitus with other specified complication, with long-term current use of insulin (Multi) 4. Abdominal aortic aneurysm (AAA) without rupture, unspecified part ([facility]) Referral to VascularMedicine 5. Mixed hyperlipidemia 6. Stage 3a chronic kidney disease (Multi) 7. Arteriosclerosis of coronary artery 8. Family history of aneurysm Referral to Vascular Medicine 9. Gastroesophageal reflux disease with esophagitis, unspecified whether hemorrhage 10. Coronary arteriosclerosis in [place] artery 11. Medication course changed 12. Never smoked cigarettes 13. Dizziness Vascular US Carotid Artery Duplex Bilateral The above problems were addressed. Patient's dizziness is most concerning for orthostatic dizziness, although other etiology could be excluded in this patient with vascular disease. Will proceed withcarotid ultrasound, orthostatic precautions were reiterated, hydration was emphasized. Although the abdominal aortic dilatation is not alarmingly large, there is significant increase in size compared to the ultrasound findings from a year ago. As such, patient will be referred to vascular surgery, so that vascular surgery is also involved in ongoing surveillance. Follow up : 6 months Provider Attestation - Scribe documentation All medical record entries made by the Scribe were at my direction and personally dictated by me. Ihrosales reviewed the chart and agree that the record accurately reflects my personal performance of the history, physical exam, discussion and plan. [facility] Work Phone: 1(247) 179-303608-19-2024 Instructions* Patient Instructions* Mari Huntley LPN - 04/26/2024 11:30 AM EDT Please bring all medicines, vitamins, and herbal supplements with you when you come to the office. Prescriptions will not be filled unless you are compliant with your follow up appointments or have a follow up appointment scheduled as per instruction of your physician. Refills should be requested at the time of your visit. BMI was above normal measurement. Current weight: 92.2 kg (203 lb 3.2 oz) Weight change since last visit (-) denotes wt loss 2.2 lbs Weight loss needed to achieve BMI 25: 21.8 Lbs Weight loss needed to achieve BMI 30: -14.5 Lbs Provided instructions on dietary changes Provided instructions on exercise. [facility] Work Phone: 1(858) 882-254111-15-2023 Evaluation note* Encounter Date Diagnosis Assessment Notes [...] use, the patient reduces the risk for NM, CVA, HTN, cardiac dysrhythmias and sudden cardiac deaths.The patient is also aware of the association between MARIA T and morning headaches, daytime somnolence, fatigue and obesity, which also has been improved with continued use.The patient is compliant with treatment, wearing the equipment every night for greater than 4 hours.The patient is instructed to continue use of the CPAP for MARIA T treatment. 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) Jul, Gastroesophageal ref lux disease with esophagitis without hemorrhage (ICD-10 - K21.00) [facility] Other 11-02-2023 Evaluation note* Encounter Date Diagnosis Assessment Notes Treatment Notes Treatment Clinical Notes Jul, Type 2 diabetes mellitus with hyperglycemia (ICD-10 - E11.65) [facility] Other 10-25-2023 Evaluation note* Encounter Date Diagnosis Assessment Notes Treatment Notes Treatment Clinical Notes Jun, Infrarenal abdominal aortic aneurysm (AAA) without rupture (ICD-10 - I71.43) CT 3.2cm - 2022 [facility] Other 05-15-2023 Evaluation note* Encounter Date Diagnosis [...] use, the patient reduces the risk for NM, CVA, HTN, cardiac dysrhythmias and sudden cardiac deaths.The patient is also aware of the association between MARIA T and morning headaches, daytime somnolence, fatigue and obesity, which also has been improved with continued use.The patient is compliant with treatment, wearing the equipment every night for greater than 4 hours.The patient is instructed to continue use of the CPAP for MARIA T treatment. January, [facility] (current) use of insulin (ICD-10 - Z79.4) [facility] Other 04-04-2023 Evaluation note* Encounter Date Diagnosis Assessment Notes Treatment Notes Treatment Clinical Notes Dec, Type 2 diabetes mellitus with hyperglycemia (ICD-10 - E11.65) [facility] Other 02-13-2023 Evaluation note* Encounter Date Diagnosis [...] rupture (ICD-10 - I71.43) US abdomen: 3.1cm 04/2022 Healthy diet, control BP Oct, Gastroesophageal ref lux disease with esophagitis without hemorrhage (ICD-10 - K21.00) Diet instructions: Smaller portions, avoid eating and laying flat, avoid eating or drinking prior to bedtime. Weight loss. Oct, Obstructive sleep ap louie (ICD-10 - G47.33) This patient is aware of the benefits associated with MARIA T: With continued use, the patient reduces the risk for NM, CVA, HTN, cardiac dysrhythmias and sudden cardiac [...] - N40.1) Yearly PSA, symptoms tolerable. Oct, [facility] (current) use of insulin (ICD-10 - Z79.4) Oct, Screening PSA (prost ate specific antigen) (ICD-10 - Z12.5) [facility] Other 04-06-2022 NoteChief Complaint consultation for colonoscopy [...] no abdominal complaints; last colonoscopy 2013 in [place], had several tubular adenomas removed; only abdominal [...] E&M of New Patient Low 30-44 Min 30930 Follow-up No qualifying data available Problem List/Past [...] Tobacco Use:. Never Smokel (more content not included)...[facility]:Result Comment: Electronically Signed By: KALE GREEN, Bert Woodall\Date and Time Signed: 12/12/21 21:56 EDTEvaluation + Plan note No data available for this section General Surgery [facility] Evaluation noteNo [employer] Other Evaluation note* Diagnosis Benign hypertension Essential hypertension, benign Atherosclerosis of [place] coronary artery, unspecified whether angina present, unspecified whether [place] or transplanted heart documented in this encounter [facility] Work Phone: Evaluation noteNo assessment information available [facility] Work Phone: Evaluation note* Diagnosis Onset Date Resolution Status Abdominal aortic aneurysm, without rupture, unspecifie d acute Occlusion and stenosis of bilateral carotid arteries acute [facility] Work Phone: Evaluation note* Diagnosis Onset Date Resolution Status Abdominal aortic aneurysm, without rupture, unspecifie d acute Occlusion and stenosis of bilateral carotid arteries acute Abdominal aortic aneurysm, without rupture, unspecifie d acute [facility] Work Phone: Evaluation note* Diagnosis Benign essential hypertension Essential hypertension, benign Primary hypertension Unspecified essential hypertension Type 2 diabetes mellitus with other specified complication, with long-term current use of insulin (Multi) Abdominal aortic aneurysm (AAA) without rupture, unspecified part ([facility]) Mixed hyperlipidemia Stage 3a chronic kidney disease (Multi) Arteriosclerosis of coronary artery Family history of aneurysm Family history of other condition Gastroesophageal reflux disease with esophagitis, unspecified whether hemorrhage Coronary arteriosclerosis in [place] artery Medication course changed Never smoked cigarettes Dizziness Dizziness and giddiness documented in this encounter [facility] Work Phone: Evaluation note* Diagnosis Dizziness Dizziness and giddiness documented in this encounter [facility] Work Phone: History general Narrative - [...] stent insertion Hospitalization History see surgical history [facility] Other History of Present illness Narrative* 77-year-old is accompanied by to the office, here to establish cardiology care. * Has history of atherosclerotic [place] vessel coronary artery disease and multiple risk [...] shows normal sinus rhythm at 63 bpm [place] interval 162 ms QRS duration 84 ms QTc 407 ms, there is evidence of left atrial abnormality. * History so far : * 1. Atherosclerotic [place] vessel coronary artery disease-patient says that whenever [...] arise, * Sincerely, * Jeyson Huang MD [facility] [address] DO Work Phone: History of Present illness Narrative* 77-year-old is accompanied by to the office, here to establish cardiology care. * Has history of atherosclerotic [place] vessel coronary artery disease and multiple risk [...] shows normal sinus rhythm at 63 bpm [place] interval 162 ms QRS duration 84 ms QTc 407 ms, there is evidence of left atrial abnormality. * History so far : * 1. Atherosclerotic [place] vessel coronary artery disease-patient says that whenever [...] arise, * Sincerely, * Jeyson Huang MD [facility] 250 DO Work Phone: Hospital Discharge instructions No data available for this section General Surgery Mobile Summary Purpose Family History Unknown Family Member [...] Specialty Diagnoses / Procedures Referred By Alivia t Referred To Contact Cardiology Diagnoses Dizziness Procedures Vascular US Carotid Artery Duplex Bilateral Jeyson Huang MD [address] [place] [id number] Referral ID Status Reason Start Date Expiration Date Visits Requested Visits Authorized [id number] Authorized Perform Procedure 04/26/2024 04/26/2025 1 1 Specialty Diagnoses / Procedures Referred By Alivia t Referred To Contact Diagnoses Abdominal aortic aneurysm (AAA) without rupture, unspecified part ([facility]) Family history of aneurysm Jeyson Huang MD [address] [place] [id number] Referral ID Status Reason Start Date Expiration Date Visits Requested Visits Authorized [id number] Authorized Specialty Services Required 04/26/2024 04/26/2025 1 1 Specialty Diagnoses / Procedures Referred By Conttrudy t Referred To Contact Cardiology Diagnoses Benign essential hypertension Procedures Follow Up In Cardiology Jeyson Huang MD [address] [place] [id number] Jeyson Huang MD [address] [facility] [address] [place] [address] Referral ID Status Reason Start Date Expiration Date V isits Requested Visits Authorized [id number] Authorized 04/26/2024 04/26/2025 1 1 Specialty Diagnoses / Procedures Referred By Contac t Referred To Contact Cardiology Diagnoses Benign hypertension Atherosclerosis of [place] coronary artery, unspecified whether angina present, unspecified whether [place] or transplanted heart Procedures Vascular US aorta iliac duplex complete Jeyson Huang MD [address] [facility] [address] [place] [address] Referral ID Status Reason Start Date Expiration Date Visits Requested Visits Authorized [id number] Authorized Perform Procedure 05/25/2023 11/21/2023 1 1 [...] 11:02am Type 2 diabetes mellitus with hyperglyce radha July 26, 2024 11:02am Additional Source Comments (unrecognized sect ion and content) No Status Records FoundNo Status Records FoundNo Status Records FoundNo Status Records FoundNo Status Records FoundNo Status Records FoundNo Status Records Found INFORMATION SOURCE (unrecogn ized section and content) DATE CREATED AUTHOR 01/26/2022 [facility] DATE CREATED AUTHOR AUTHOR'S ORGANIZ ATION 01/19/2023 [facility] DATE CREATED AUTHOR AUTHOR'S ORGANIZ ATION 05/05/2023 [facility] DATE CREATED AUTHOR AUTHOR'S ORGANIZ ATION 05/07/2023 [employer] DATE CREATED AUTHOR AUTHOR'S ORGANIZ ATION 05/30/2024 [facility] DATE CREATED AUTHOR AUTHOR'S ORGANIZ ATION 06/02/2024 [facility] DATE CREATED AUTHOR AUTHOR'S ORGANIZ ATION 06/26/2024 [facility] REASON FOR VISIT (unrecogniz ed section and content) Specialty Diagnoses / Procedures Referred By Alivia leigh Referred To Contact Cardiology Diagnoses Benign hypertension Atherosclerosis of [place] coronary artery, unspecified whether angina present, unspecified whether [place] or transplanted heart Procedures Vascular US aorta iliac duplex complete Jeyson Huang MD [address] [facility] [address] [place] [address] Referral ID Status Reason Start Date Expiration Date Visits Requested Visits Authorized [id number] Authorized Perform Procedure 05/25/2023 11/21/2023 1 1 Reason Comments Annual Exam Specialty Diagnoses / Procedures Referred By Alivia leigh Referred To Contact Cardiology Diagnoses Dizziness Procedures Vascular US Carotid Artery Duplex Bilateral Jeyson Huang MD [address] [place] [address] [address] [place] [address] Referral ID Status Reason Start Date Expiration Date Visits Requested Visits Authorized [id number] Authorized Perform Procedure 04/26/2024 04/26/2025 1 1 Care Teams (unrecognized sec tion and content) 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 [facility]. provides no warranty or guarantee of the accuracy or completeness of information in this document.
[2024-11-18 22:56] LABS: Glucometer 86 mg/dL (74-106)
--- NOTE | 2024-11-18 23:00 | ED_ITS ---
HPI HPI - General Adult General Chief complaint: Recheck/Abnormal Lab/Rx Stated complaint: HYPOGLYCEMIA Time Seen by Provider: 11/18/24 22:45 Source: patient Mode of arrival: walk-in Limitations: no limitations History of Present Illness HPI narrative: Patient presents to the emergency department with chief complaint of low blood sugar. He is diabetic and takes 50 units of Humalog twice a day as well as linagliptin twice a day. Around 530 this evening his blood sugar was in the 30s. He was awake and he started eating. He had a ham sandwich along with some cheese and drank a can of regular soda. His blood pressure would come up and then would start dipping again. He does not report chest pain, shortness of breath, chills, fever, headache, nausea or vomiting. Related Data Home Medications ?Medication ?Instructions ?Recorded ?Confirmed linagliptin 2.5 mg-metformin 1,000 tab 11/18/24 mg tablet (Jentadueto) Allergies Allergy/AdvReac Type Severity Reaction Status Date / Time No Known Drug Allergies Allergy Verified 11/18/24 22:53 Opioid HPI Opioid Management Most Recent Opioid Data: No Data to Display Review of Systems ROS Status of ROS 10 or more systems reviewed and unremark able except as noted in history and below PFSH PFSH Social History Smoking status: Current every day smoker Little interest or pleasure in doing things: not at all Feeling down, depressed, or hopeless: not at all Exam Narrative Exam Narrative: Patient is awake, alert and nondistressed. He has systolic hypertension. The rest of his vitals are stable. Speech and mentation are clear and intact. He moves all extremities actively. There is no facial asymmetry. HEENT exam is normal to inspection. Neck is supple. Lung sounds are clear to auscultation bilaterally with good air entry. Heart has regular rate and rhythm. Abdomen is protuberant, soft and nontender and there is no fluid wave or organomegaly. Skin is warm and dry. Constitutional Vital Signs, click to edit/add: Last Vital Signs Temp 98.0 F 11/18/24 22:45 Pulse 70 11/18/24 22:45 Resp 18 11/18/24 22:45 BP 152/60 H 11/19/24 01:04 Pulse Ox 98 11/18/24 23:13 O2 Del Method Room Air 11/18/24 23:13 Course Vital Signs Vital signs: Vital Signs Temperature 98.0 F 11/18/24 22:45 Pulse Rate 70 11/18/24 22:45 Respiratory Rate 18 11/18/24 22:45 Blood Pressure 211/85 H 11/18/24 22:45 Pulse Oximetry 98 11/18/24 22:45 Oxygen Delivery Method Room Air 11/18/24 22:45 Temperature 98.0 F 11/18/24 22:45 Pulse Rate 70 11/18/24 22:45 Respiratory Rate 18 11/18/24 22:45 Blood Pressure 152/60 H 11/19/24 01:04 Pulse Oximetry 98 11/18/24 23:13 Oxygen Delivery Method Room Air 11/18/24 23:13 Medical Decision Making MDM Narrative Medical decision making narrative: Patient is started on an IV of D5 lactated Ringer's and has received 500 cc of the fluid. His blood sugars have come up nicely and he feels well enough to go home. He is advised to reduce his Humalog dose to 40 mg twice a day and monitor his blood glucose levels closely then follow-up with his PCP. He may return anytime for worsening symptoms. Lab Data Labs: Lab Results 11/18/24 11/18/24 11/19/24 Range/Units 22:48 23:05 00:10 WBC 8.7 (4.0-11.0) 10^3/uL RBC 3.73 L (4.70-6.10) 10^6/uL Hgb 11.7 L (14.0-18.0) g/dL Hct 35.8 L (42.0-54.0) % MCV 96.0 H (80.0-94.0) fL MCH 31.4 (25.9-34.0) pg MCHC 32.7 (29.9-35.2) g/dL RDW 12.6 (11.0-15.0) % Plt Count 156 (150-450) 10^3/uL MPV 11.2 (9.5-13.5) fL Neut % (Auto) 63.2 (43.0-75.0) % Lymph % (Auto) 21.0 (20.5-60.0) % [place] % (Auto) 12.6 H (1.7-12.0) % Eos % (Auto) 2.3 (0.9-7.0) % Baso % (Auto) 0.6 (0.2-2.0) % Neut # (Auto) 5.5 (1.4-6.5) 10^3/uL Lymph # (Auto) 1.8 (1.2-3.8) 10^3/uL [place] # (Auto) 1.1 H (0.3-0.8) 10^3/uL Eos # (Auto) 0.2 (0.0-0.7) 10^3/uL Baso # (Auto) 0.1 (0.0-0.1) 10^3/uL Abs Immat Gran (auto) 0.03 (0.00-0.03) 10^3/uL Imm/Tot Granulo (auto) 0.3 (0.0-0.5) % Sodium 144 (136-145) mmol/L Potassium 4.3 (3.5-5.1) mmol/L Chloride 109 H (98-107) mmol/L Carbon Dioxide 24.8 (21.0-32.0) mmol/L Anion Gap 14.5 BUN 30.0 H (7.0-18.0) mg/dL Creatinine 1.49 H (0.70-1.30) mg/dL Est GFR ( Amer) 55 L (>=60 mL/min/1.73m^2) Est GFR (Non-Af Amer) 45 L (>=60 mL/min/1.73m^2) BUN/Creatinine Ratio 20.1 Glucose 101 (74-106) mg/dL Calcium 9.0 (8.5-10.1) mg/dL Total Bilirubin 0.3 (0.2-1.0) mg/dL AST 20 (15-37) U/L ALT 26 (16-63) U/L Alkaline Phosphatase 102 (46-116) U/L Total Protein 7.1 (6.4-8.2) g/dL Albumin 3.5 (3.4-5.0) g/dL Globulin 3.6 g/dL Albumin/Globulin Ratio 1.0 POC Glucose 86 140 H (74-106) mg/dL 11/19/24 Range/Units 00:56 WBC (4.0-11.0) 10^3/uL RBC (4.70-6.10) 10^6/uL Hgb (14.0-18.0) g/dL Hct (42.0-54.0) % MCV (80.0-94.0) fL MCH (25.9-34.0) pg MCHC (29.9-35.2) g/dL RDW (11.0-15.0) % Plt Count (150-450) 10^3/uL MPV (9.5-13.5) fL Neut % (Auto) (43.0-75.0) % Lymph % (Auto) (20.5-60.0) % [place] % (Auto) (1.7-12.0) % Eos % (Auto) (0.9-7.0) % Baso % (Auto) (0.2-2.0) % Neut # (Auto) (1.4-6.5) 10^3/uL Lymph # (Auto) (1.2-3.8) 10^3/uL [place] # (Auto) (0.3-0.8) 10^3/uL Eos # (Auto) (0.0-0.7) 10^3/uL Baso # (Auto) (0.0-0.1) 10^3/uL Abs Immat Gran (auto) (0.00-0.03) 10^3/uL Imm/Tot Granulo (auto) (0.0-0.5) % Sodium (136-145) mmol/L Potassium (3.5-5.1) mmol/L Chloride (98-107) mmol/L Carbon Dioxide (21.0-32.0) mmol/L Anion Gap BUN (7.0-18.0) mg/dL Creatinine (0.70-1.30) mg/dL Est GFR ( Amer) (>=60 mL/min/1.73m^2) Est GFR (Non-Af Amer) (>=60 mL/min/1.73m^2) BUN/Creatinine Ratio Glucose (74-106) mg/dL Calcium (8.5-10.1) mg/dL Total Bilirubin (0.2-1.0) mg/dL AST (15-37) U/L ALT (16-63) U/L Alkaline Phosphatase (46-116) U/L Total Protein (6.4-8.2) g/dL Albumin (3.4-5.0) g/dL Globulin g/dL Albumin/Globulin Ratio POC Glucose 245 H (74-106) mg/dL Discharge Plan Discharge Chief Complaint: Recheck/Abnormal Lab/Rx Clinical Impression: Hypoglycemia Patient Disposition: Home, Self-Care Time of Disposition Decision: 01:01 Condition: Good Mode of Transportation: Private Vehicle Prescriptions / Home Meds: No Action Jentadueto 2.5-1,000 mg tablet Print Language: Upper Sorbian Instructions: Hypoglycemia in a Person with Diabetes (ED) Additional Instructions: Reduce Humalog dose to 40 units twice a day. Continue monitoring your blood glucose levels closely. Follow-up with your physician early next week. Return for worsening symptoms. Referrals: Dallin Pace DO [Primary Care Provider] - 1 week Discharge Date/Time: 11/19/24 01:20
[2024-11-18] MEDS: DEXTROSE 5%-LACTATED RINGERS 1,000 ML 100 ML IV (23:01)
[2024-11-18 23:13] VITALS: O2SAT 98
[2024-11-18 23:16] LABS: Basophils Absolute Auto 0.1 10^3/uL (0.0-0.1); Basophils Percent Auto 0.6 % (0.2-2.0); Eosinophils Absolute Auto 0.2 10^3/uL (0.0-0.7); Eosinophils Percent Auto 2.3 % (0.9-7.0); Hematocrit 35.8 % (42.0-54.0); Hemoglobin 11.7 g/dL (14.0-18.0); Immature Granulocytes Abs Auto 0.03 10^3/uL (0.00-0.03); Immature Granulocytes Pct Auto 0.3 % (0.0-0.5); Lymphocytes Absolute Auto 1.8 10^3/uL (1.2-3.8); Mean Corpuscular HGB Conc 32.7 g/dL (29.9-35.2); Mean Corpuscular Hemoglobin 31.4 pg (25.9-34.0); Mean Platelet Volume 11.2 fL (9.5-13.5); Monocytes Absolute Auto 1.1 10^3/uL (0.3-0.8); Monocytes Percent Auto 12.6 % (1.7-12.0); Neutrophils Absolute Auto 5.5 10^3/uL (1.4-6.5); Neutrophils Percent Auto 63.2 % (43.0-75.0); Platelet Count 156 10^3/uL (150-450); Red Blood Count 3.73 10^6/uL (4.70-6.10); Red Cell Distribution Width 12.6 % (11.0-15.0); White Blood Count 8.7 10^3/uL (4.0-11.0)
[2024-11-18 23:33] LABS: Alanine Aminotransferase 26 U/L (16-63); Albumin Level 3.5 g/dL (3.4-5.0); Alkaline Phosphatase 102 U/L (46-116); Anion Gap 14.5; Aspartate Amino Transferase 20 U/L (15-37); BUN Creatinine Ratio 20.1; Bilirubin Total 0.3 mg/dL (0.2-1.0); Carbon Dioxide 24.8 mmol/L (21.0-32.0); Chloride 109 mmol/L (98-107); Estimated GFR (African America 55 (>=60 mL/min/1.73m^2); Estimated GFR (Non-African Ame 45 (>=60 mL/min/1.73m^2); Globulin 3.6 g/dL; Glucose 101 mg/dL (74-106); Potassium 4.3 mmol/L (3.5-5.1); Sodium 144 mmol/L (136-145); Total Protein 7.1 g/dL (6.4-8.2)
[2024-11-19 00:13] LABS: Glucometer 140 mg/dL (74-106)
[2024-11-19 00:58] LABS: Glucometer 245 mg/dL (74-106)
[2024-11-19 01:04] VITALS: BP 152/60
== END 2024-11-19 01:20 | disposition home or self-care (01) ==
PROVIDERS: Emergency Provider Emergency Medicine; PCP Internal Medicine
DX: E11.649 Type 2 diabetes mellitus with hypoglycemia without coma (principal); Z79.4 Long term (current) use of insulin; Z79.84 Long term (current) use of oral hypoglycemic drugs; F17.200 Nicotine dependence, unspecified, uncomplicated
CPT/HCPCS: 36415; 80053; 85025; 99285

== ENCOUNTER 2024-11-21 00:23 | Emergency (ER) | payer MEDICARE, SELFPAY ==
[2024-11-21 00:31] VITALS: BP 186/98; PULSE 88; TEMP 37.2; O2SAT 97; BMI 27.8
--- OUTSIDE RECORDS SUMMARY | 2024-11-21 00:31 | XMS_ITS | CCD ---
Author Organization [facility] CliniSyct Care Team Providers Care Edge Stitcher Name Role Phone DALLIN PACE Primary Care Physician [phone] Dallin Pace Unavailable SANJEEV, DR ACEVES Admitting [...] Unavailable Dallin Pace Primary Care Unavailable Ruy Maicas Attending Unavailable Ruy Macias Admitting Unavailable Dallin Pace DO Primary Care Provider Medications Current Medications Medication Drug Class(es) Dates Sig (Normalized) Sig (Original) Accu-Chek Advantage Meter (7 sources) Start: 12-10-2022 Accu-Chek Advantage Meter Dec, Active [id number] actuat albuterol 0.09 mg/actuat metered dose [...] 10, 2024 6:50am omega-3 acid ethyl esters (detention) 1000 mg oral capsule (2 sources) omega-3 [...] take 1 capsule by mouth once daily Doole-3 Fish Oil 1000 MG Oral Capsule TAKE [...] Coronary arteriosclerosis; Translations: [Atherosclerotic heart disease of [place] coronary artery without angina pectoris] Onset: 02-27-2019 [...] sources) Long-term current use of insulin; Translations: [FPC (current) use of insulin] Episodic Other aftercare (6 sources) FPC (current) use of insulin; Translations: [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 INSULIN] Onset: 09-04-2022 Episodic Other aftercare (2 sources) Long-term current use of drug therapy; Translations: [Other online marketing director (current) drug therapy] Episodic Other aftercare (2 sources) Other online marketing director (current) drug therapy; Translations: [Other online marketing director (current) drug therapy] Onset: 04-26-2024 Episodic Other [...] aftercare (3 sources) Treatment changed; Translations: [Other online marketing director (current) drug therapy] Onset: 04-26-2024 04-26-2024 Episodic [...] Range Facility US aortaon 06-15-2024 US aorta [facility] [address] [place] [address] Ultrasound Report Signed Patient: Olman Hamlin MR#: [id number] : 1945 Acct:[id number] Age/Sex: 78 / M ADM Date: 06/15/24 Loc: [facility] Room: Type: [facility] Attending Dr: Ruy Macias MD Ordering Provider: [...] Ruy Macias M.D.06/15/2024 10:36 AM Dictation Location: [place] [address] Tech: Sandra Ha Transcribed By: CATA 06/15/24 1036 Dictated By: Ruy Macias MD 06/15/24 1034 Signed By: 06/15/24 1036 Normal [facility] US CAROTID ARTERY DUPLE X BILATERALon 05-24-2024 [facility] US CAROTID ARTERY DUPLEX BILATERAL [address], [address] [place] [address] Vascular Lab Report [facility] US CAROTID ARTERY DUPLEX BILATERAL Patient Name: OLMAN HAMLIN Reading Physician: [id number] Rafaela Villagomez MD, [facility] Study Date: 05/24/2024 Ordering Provider: [id number] JEYSON HUANG MRN/PID: [id number] Fellow: Technologist: Makayla Smalls [facility], T Date of /Age: 11 1945 / 78 years Technologist 2: Gender: M Admission Status: Outpatient Location Performed: [facility] Diagnosis/ICD: Dizziness and giddiness-R42 Indication: Diabetes, HTN, Hyperlipidemia, CAD, AAA, MARIA T, Overweight CPT Codes: 02880 Cerebrovascular Carotid Duplex scan complete CONCLUSIONS: Right [...] cm/s Right Left ICA/CCA Ratio 1.1 1.1 [id number] Rafaela Villagomez MD, FACC Final [facility] NUCLEAR STRESS TESTon 2022 NUCLEAR STRESS TEST Interpreted By: Rafaela Villagomez, and Matilde Noel STUDY: MYOCARDIAL PERFUSION STRESS TEST WITH EXERCISE CONVERTED TO LEXISCAN Performing facility: [facility], [address], [address], [place] [address] [facility] Provider: Jeyson Huang MD, [facility] PCP: Dr. Cecil Pace Supervising provider: Rafaela Villagomez MD, [facility] INDICATION: CAD; Chest discomfort HISTORY: Gender: M; Age: 77 y/o ; Height: HT 180.3 cm cm; Weight: WT 91.173 kg kg. CAD; Diabetes; Chest Pain; HTN; Denies smoking. Cardiac catheterization on 2005. PTCA on 2005. COMPARISON: Previous nuclear testing completed [id number] at [facility]. ACCESSION NUMBER(S): [id number] ORDERING CLINICIAN: JEYOSN HUANG TECHNIQUE: ONE DAY protocol. Stress injection: [...] Rafaela Villagomez 06/24/2023 12:45 PM Dictation workstation: [id number] [facility] Comment on above: Order Comment: Reji Ingram elected: Y US.doppler [facility] 06-24-[address], [address] [place] [address] Vascular Lab Report Abdominal Aorta Iliac Ultrasound/IVC Ultrasound Patient Name: OLMAN [facility] Reading Physician: [id number] Rafaela Villagomez MD, [facility] Study Date: 06/24/2023 Ordering Provider: [id number] JEYSON HUANG MRN/PID: [id number] Fellow: Technologist: Makayla Smalls RD, [facility] Date of /Age: 11 1945 / 77 years Technologist 2: Gender: M Admission Status: Outpatient Location Performed: [facility] Diagnosis/ICD: Essential primary hypertension-I10 Indication: AAA, [...] Final Rafaela Vallecillo M D - 06/24/[address], [address], [place] [address] Vascular Lab Report Abdominal Aorta Iliac Ultrasound/IVC Ultrasound Patient Name: OLMAN HAMLIN [place] Physician: Isabella Villagomez MD, FACC Study Date: 06/24/2023 Ordering Provider: [id number] JEYSON HUANG MRN/PID: [id number] Fellow: Technologist: Makayla Smalls RD, T Date of /Age: 11 1945 / years Technologist 2: Gender: M Admission Status: Outpatient Location Performed: [facility] Diagnosis/ICD: Essential primary hypertension-I10 Indication: AAA, [...] 107.00 cm/s Isabella Villagomez MD, FACC Final [facility] Work Phone: Radiology Study observation (narrative) [facility] Work Phone: US.doppler Aorta and Iliac a rtery - bilateralOrdered By: Rafaela Villagomez on 06-24-2023 [facility] Work Phone: VASC US AORTA ILIAC DUPLEX C OMPLETEon 06-24-2023 VASC US AORTA ILIAC DUPLEX COMPLETE [address], [address], [place] [address] Vascular Lab Report Abdominal Aorta Iliac Ultrasound/IVC Ultrasound Patient Name: OLMAN HAMLIN Reading Physician: [id number] Rafaela Villagomez MD, FAC Study Date: 06/24/2023 Ordering Provider: [id number] JEYSON HUANG MRN/PID: [id number] Fellow: Technologist: Makayla Smalls RDCS, T Date of /Age: 11 1945 / 77 years Technologist 2: Gender: M Admission Status: Outpatient Location Performed: [facility] Diagnosis/ICD: Essential primary hypertension-I10 Indication: AAA, [...] Proximal 0.68 cm 1.06 cm 107.00 cm/s [id number] Rafaela Villagomez MD, FACC Final [facility] Office Visit (Cardiology)on 05-05-2023 Follow-up visit [...] Blood Count; Status:Active - Retrospective Authorization; Requested for:[id number]; Comprehensive Metabolic Panel; Status:Active - Retrospective Authorization; Requested for:[id number]; Hemoglobin A1C; Status:Active - Retrospective Authorization; Requested for:[id number]; Lipid Panel; Status:Active - Retrospective Authorization; Requested for:[id number]; Overweight with body mass index (BMI) of 28 to 28.9 in adult Healthy Weight Tips; Status:Complete - Retrospective Authorization; Done: [id number] IO EKG Electrocardiogram- 12 Lead; Status:Complete; Done: [id number] Some eating tips that can help you lose weight.; Status:Complete - Retrospective Authorization; Done: [id number] SocHx: Never a smoker Tobacco Use Screening; Status:Complete; Done: [id number] Patient Instructions Please bring all medicines, vitamins, [...] establish cardiology care. Has history of atherosclerotic [place] vessel coronary artery disease and multiple risk [...] shows normal sinus rhythm at 63 bpm GA interval 162 ms QRS duration 84 ms QTc 407 ms, there is evidence of left atrial abnormality. History so far : 1. Atherosclerotic [place] vessel coronary artery disease-patient says that whenever [...] Patient brou (more content not included)... Normal [facility] Tobacco Screening.on 023 Adult depression screening assessment No [facility] [place] [address] DO Work Phone: Fall risk assessment a) No falls within the last year [facility] [place] [address] DO Work Phone: Tobacco use status [facility] b) No [facility] [place] [address] DO Work Phone: GLYCOHEMOGLOBIN A1Con 2022 ADA RECOMMENDATION SEE BELOW Normal [facility] Comment on above: Result Comment: ADA RECOMMENDED LIMIT 4.0 - 6.0 ADA THERAPEUTIC TARGET < 7.0 ACTION SUGGESTED > 7.0 Performed By: #### A 1C #### [facility] [address] [place] [address] Dr. Julianne Patel Glucose [Mass/Vol] 157 mg/dL Normal [facility] Comment on above: Performed By: #### A 1C #### [facility] [address] [place] [address] [address] Julianne Patel HbA1c (Bld) [Mass fraction] 7.1 % Critically high 4.5-6.2 [facility] Comment on above: Performed By: #### A 1C #### [facility] [address] [place] [address] [address] Julianne Patel GLYCOHEMOGLOBIN A1Con 2021 ADA RECOMMENDATION SEE BELOW Normal [facility] Comment on above: Result Comment: ADA RECOMMENDED LIMIT 4.0 - 6.0 ADA THERAPEUTIC TARGET < 7.0 ACTION SUGGESTED > 7.0 Performed By: #### A 1C #### [facility] [address] [place] [address] Dr. Julianne Patel Glucose [Mass/Vol] 154 mg/dL Normal [facility] Comment on above: Performed By: #### A 1C #### [facility] [address] [place] [address] Dr. Julianne Patel HbA1c (Bld) [Mass fraction] 7.0 % Critically high 4.5-6.2 [facility] Comment on above: Performed By: #### A 1C #### [facility] [address] [place] [address] Dr. Julianne Patel US ABD AORTA SCREENINGon [...] SHILPI FIORE Date: 2022-04-20 09:07 Normal [facility] FOLATE ([facility])on 2 Folate 13.5 ng/mL Normal >3.0 [facility] Comment on above: Result Comment: A se rum folate concentration of less than 3.1 ng/mL is considered to represent clinical deficiency. Performed By: #### F OLALC #### [facility] [address] [place] [address] Dr. Julianne Patel CBC AUTO DIFFon 02-21-2022 BASO # 0.1 103/ul Normal 0.0-0.1 [facility] Comment on above: Performed By: #### C BC #### [facility] [address] [place] [address] Dr. Julianne Patel Basophils/100 WBC (Bld) 1.2 % Normal 0.2-2.0 [facility] Comment on above: Performed By: #### C BC #### [facility] [address] [place] [address] Dr. Julianne Patel EO # 0.2 103/ul Normal 0.0-0.7 [facility] Comment on above: Performed By: #### C BC #### [facility] [address] [place] [address] Dr. Julianne Patel Eosinophils/100 WBC (Bld) 4.1 % Normal 0.9-7.0 [facility] Comment on above: Performed By: #### C BC #### [facility] [address] [place] [address] Dr. Julianne Patel Erythrocyte distribution width (RBC) [Ratio] 12.7 % Normal 11.0-15.0 [facility] Comment on above: Performed By: #### C BC #### [facility] [address] [place] [address] Dr. Julianne Ptael Hematocrit (Bld) [Volume fraction] 37.8 % Critically low 42.0-54.0 [facility] Comment on above: Performed By: #### C BC #### [facility] [address] [place] [address] Dr. Julianne Patel Hemoglobin (Bld) [Mass/Vol] 12.1 g/dL Critically low 14.0-18.0 [facility] Comment on above: Performed By: #### C BC #### [facility] [address] [place] [address] Dr. Julianne Patel IG # 0.02 10e3/ul Normal 0.00-0.03 [facility] Comment on above: Performed By: #### C BC #### [facility] [address] [place] [address] Dr. Julianne Patel IG % 0.4 % Normal 0.0-0.5 [facility] Comment on above: Performed By: #### C BC #### [facility] [address] [place] [address] Dr. Julianne Patel LYMPH # 1.2 103/ul Normal 1.2-3.8 [facility] Comment on above: Performed By: #### C BC #### [facility] [address] [place] [address] Dr. Julianne Patel Lymphocytes/100 WBC (Bld) 23.1 % Normal 20.5-60.0 [facility] Comment on above: Performed By: #### C BC #### [facility] [address] [place] [address] Dr. Julianne Patel MANUAL DIFF REQ NO Normal [facility] Comment on above: Performed By: #### C BC #### [facility] [address] [place] [address] Dr. Julianne Patel MCH (RBC) [Entitic mass] 30.9 pg Normal 25.9-34.0 [facility] Comment on above: Performed By: #### C BC #### [facility] [address] [place] [address] Dr. Julianne Patel MCHC (RBC) [Mass/Vol] 32.0 g/dL Normal 29.9-35.2 [facility] Comment on above: Performed By: #### C BC #### [facility] [address] [place] [address] Dr. Julianne Patel MCV (RBC) [Entitic vol] 96.7 fL Critically high 80.0-94.0 [facility] Comment on above: Performed By: #### C BC #### [facility] [address] [place] [address] Dr. Julianne Patel MONO # 0.5 103/ul Normal 0.3-0.8 [facility] Comment on above: Performed By: #### C BC #### [facility] [address] [place] [address] Dr. Julianne Patel Monocytes/100 WBC (Bld) 10.3 % Normal 1.7-12.0 [facility] Comment on above: Performed By: #### C BC #### [facility] [address] [place] [address] Dr. Julianne Patel NEUT # 3.1 103/ul Normal 1.4-6.5 [facility] Comment on above: Performed By: #### C BC #### [facility] [address] [place] [address] Dr. Julianne Patel Neutrophils/100 WBC (Bld) 60.9 % Normal 43.0-75.0 [facility] Comment on above: Performed By: #### C BC #### [facility] [address] [place] [address] Dr. Julianne Patel Platelet mean volume (Bld) [Entitic vol] 11.2 fL Normal 9.5-13.5 [facility] Comment on above: Performed By: #### C BC #### [facility] [address] [place] [address] [address] Julianne Patel PLT 155 103/ul Normal 150-450 [facility] Comment on above: Performed By: #### C BC #### [facility] [address] [place] [address] Dr. Julianne Patel RBC 3.91 106/ul Critically low 4.70-6.10 [facility] Comment on above: Performed By: #### C BC #### [facility] [address] [place] [address] Dr. Julianne Patel WBC 5.2 103/ul Normal 4.0-11.0 [facility] Comment on above: Performed By: #### C BC #### [facility] [address] [place] [address] Dr. Julianne Patel FERRITINon 02-21-2022 Ferritin [Mass/Vol] 47.0 ng/mL Normal 26.0-388.0 [facility] Comment on above: Performed By: #### F ETIBC, VITB12, FERR #### [facility] [address] [place] [address] Dr. Julianne Patel IRON AND TIBCon 02-21-2022 % SATURATION 27.5 % Normal [facility] Comment on above: Performed By: #### F ETIBC, VITB12, FERR #### [facility] [address] [place] [address] Dr. Julianne Patel Iron [Mass/Vol] 90.0 ug/dL Normal 65.0-175.0 [facility] Comment on above: Performed By: #### F ETIBC, VITB12, FERR #### [facility] [address] [place] [address] Dr. Julianne Patel TIBC DIRECT 327.0 ug/dL Normal 250.0-450.0 [facility] Comment on above: Performed By: #### F ETIBC, VITB12, FERR #### [facility] [address] [place] [address] [address] Julianne Patel VITAMIN B12on 02-21-2022 Cobalamin (Vitamin B12) [Mass/Vol] 578.0 pg/mL Normal 193.0-986.0 [facility] Comment on above: Performed By: #### F ETIBC, VITB12, FERR #### [facility] [address] [place] [address] [address] Julianne Patel Outside Colonoscopyon 2021 Outside Colonoscopy [id number]#[id number]:127 [facility] Reminderson 01-17-2022 Reminders - From: Lucrecia Rachel LPN To: N - Clinical; Sent: 01/17/2022 09:15:41 EDT Show up: 12/17/2026 07:00:00 EDT Subject: colonoscopy recall Due Date/Time: 01/16/2027 07:00:00 EDT Reminder/Recall Patient is due for colonoscopy 01/16/2027 due to history of colonic polyps. Normal [facility] Lab Reportson 01-15-2022 Lab Reports [id number]#[id number]:127 Normal [facility] Pre-Certification Formon Pre-Certification Form [id number]#[id number]:127 Normal [facility] Consent for Procedure/Surger yon 12-13-2021 Consent for Procedure/Surgery [id number]:127 Normal [facility] Ambulatory Visit Summaryon 0 12-12-2021 Ambulatory Visit [...] sleep apnea) Pernicious anemia Pure hypercholesterolemia Normal [facility] Transfer Inon 12-10-2021 Transfer In [id number]#[id number]:127 Normal [facility] Physician Referralon 022 Physician Referral [id number]:127 Normal [facility] Vital Signs Date Time Vital Sign Value Performing Clinician Facility 07-26-2024 11:10-0500 Body height 180.[address] [facility] 07-26-2024 11:10-0500 Body mass index (BMI) [Ratio] 27.6 kg/m2 [facility] 07-26-2024 11:10-0500 Body weight 90.[address] [facility] 07-26-2024 11:10-0500 Diastolic blood pressure 73 mm[Hg] [facility] 07-26-2024 11:10-0500 Heart rate 56 /min [facility] 07-26-2024 11:10-0500 Respiratory rate 12 /min [facility] 07-26-2024 11:10-0500 Systolic blood pressure 194 mm[Hg] [facility] 06-15-2024 09:51-0400 Body height 180.[address] [facility] 06-15-2024 09:51-0400 Body mass index (BMI) [Ratio] 27.8 kg/m2 [facility] 06-15-2024 09:51-0400 Body temperature 96.3 [degF] [facility] 06-15-2024 09:51-0400 Body weight 90.[address] [facility] 06-15-2024 09:51-0400 Diastolic blood pressure 58 mm[Hg] [facility] 06-15-2024 09:51-0400 Heart rate 50 /min [facility] 06-15-2024 09:51-0400 SaO2% (BldA) [Mass fraction] 97 % [facility] 06-15-2024 09:51-0400 Systolic blood pressure 160 mm[Hg] [facility] 06-01-2024 09:54-0400 Body height 180.[address] [facility] 06-01-2024 09:54-0400 Body mass index (BMI) [Ratio] 27.8 kg/m2 [facility] 06-01-2024 09:54-0400 Body temperature 96.1 [degF] [facility] 06-01-2024 09:54-0400 Body weight 90.[address] [facility] 06-01-2024 09:54-0400 Diastolic blood pressure 60 mm[Hg] [facility] 06-01-2024 09:54-0400 Heart rate 63 /min [facility] 06-01-2024 09:54-0400 SaO2% (BldA) [Mass fraction] 95 % [facility] 06-01-2024 09:54-0400 Systolic blood pressure 154 mm[Hg] [facility] 04-26-2024 11:23-0400 Diastolic blood pressure 58 mm[Hg] Jeyson Huang MD Work Phone: [facility] 04-26-2024 11:23-0400 Systolic blood pressure 128 mm[Hg] Jeyson Huang MD Work Phone: [facility] 04-26-2024 11:20-0400 Body height 181.6 cm Jeyson Huang MD Work Phone: [facility] 04-26-2024 11:20-0400 Body mass index (BMI) [Ratio] 27.95 kg/m2 Jeyson Huang MD Work Phone: [facility] 04-26-2024 11:20-0400 Body weight 92.17 kg Jeyson Huang MD Work Phone: [facility] 04-26-2024 11:20-0400 Heart rate 60 /min Jeyson Huang MD Work Phone: [facility] 07-23-2023 10:00-0500 Body height 180.34 cm Dallin Ball Other [facility] [employer] Other 07-23-2023 10:00-0500 Body mass index (BMI) [Ratio] 28.62 kg/m2 Dallin Ball Other [facility] [employer] Other 07-23-2023 10:00-0500 Body weight 93.08 kg Dallin Ball Other [facility] [employer] Other 07-23-2023 10:00-0500 Diastolic blood pressure 66 mm[Hg] Dallin Ball Other [facility] [employer] Other 07-23-2023 10:00-0500 Respiratory rate 12 /min Dallin Ball Other [facility] Other 07-23-2023 10:00-0500 Systolic blood pressure 151 mm[Hg] Dallin Ball Other [facility] [employer] Other 05-05-2023 12:25-0400 Diastolic blood pressure 66 mm[Hg] Dallin E Ball Work Phone: [facility] DO Work Phone: 05-05-2023 12:25-0400 Heart rate 64 /min Dallin E Ball Work Phone: [facility] DO Work Phone: 05-05-2023 12:25-0400 Systolic blood pressure 138 mm[Hg] Dallin E Ball Work Phone: [facility] DO Work Phone: 05-05-2023 11:49-0400 Diastolic blood pressure 64 mm[Hg] Dallin E Ball Work Phone: [facility] DO Work Phone: 05-05-2023 11:49-0400 Systolic blood pressure 156 mm[Hg] Dallin E Ball Work Phone: [facility] DO Work Phone: 05-05-2023 11:48-0400 Body height 180.34 cm Dallin E Ball Work Phone: [facility] DO Work Phone: 05-05-2023 11:48-0400 Body mass index (BMI) [Ratio] 28.03 kg/m2 Dallin E Ball Work Phone: [facility] DO Work Phone: 05-05-2023 11:48-0400 Body surface area Derived from formula 2.11 m2 Dallin E Ball Work Phone: [facility] DO Work Phone: 05-05-2023 11:48-0400 Body weight 91.17 kg Dallin E Ball Work Phone: [facility] DO Work Phone: 05-05-2023 11:48-0400 Diastolic blood pressure 70 mm[Hg] Dallin E Ball Work Phone: [facility] DO Work Phone: 05-05-2023 11:48-0400 Heart rate 63 /min Dallin E Ball Work Phone: [facility] [employer] 250 DO Work Phone: 05-05-2023 11:48-0400 Systolic blood pressure 168 mm[Hg] Dallin E Ball Work Phone: [facility] [employer] 250 DO Work Phone: 01-20-2023 11:30-0400 Body height 180.34 cm Dallin Ball Other [employer] Other 01-20-2023 11:30-0400 Body mass index (BMI) [Ratio] 28.14 kg/m2 Dallin Ball Other [employer] [employer] Other 01-20-2023 11:30-0400 Body weight 91.54 kg Dallin Ball Other [facility] [employer] Other 01-20-2023 11:30-0400 Diastolic blood pressure 70 mm[Hg] Dallin Ball Other [place] [employer] Other 01-20-2023 11:30-0400 Respiratory rate 12 /min Dallin Ball Other [place] [employer] Other 01-20-2023 11:30-0400 Systolic blood pressure 152 mm[Hg] Dallin Ball Other [place] [employer] Other 10-21-2022 11:00-0500 Body height 180.34 cm Dallin Ball Other [employer] Other 10-21-2022 11:00-0500 Body mass index (BMI) [Ratio] 28.53 kg/m2 Dallin Ball Other [employer] Other 02-13-2023 11:00-0500 Body weight 92.81 kg Dallin Pace Other [employer] Other 10-21-2022 11:00-0500 Diastolic blood pressure 62 mm[Hg] Dallin Pace Other [employer] Other 10-21-2022 11:00-0500 Respiratory rate 12 /min Dallin Pace Other [employer] Other 10-21-2022 11:00-0500 Systolic blood pressure 116 mm[Hg] Dallin Pace Other [employer] Other 12-12-2021 14:23-0400 Blood Pressure Location Bert NILL [facility] [place] 12-12-2021 14:23-0400 Diastolic blood pressure 70 mm[Hg] Bert NILL [facility] [place] 12-12-2021 14:23-0400 Heart rate 68 /min Bert NILL [facility] [place] 12-12-2021 14:23-0400 Respiratory rate 16 /min Bert NILL [facility] [place] 12-12-2021 14:23-0400 Systolic blood pressure 140 mm[Hg] Bert NILL [facility] [place] Encounters Encounter Date Encounter Type Care Provider Facility Start: 07-26-2024 End: 07-26-2024 ambulatory [facility] Work Phone: Start: 07-26-2024 End: 07-26-2024 Patient encounter procedure [facility] Work Phone: Start: 07-21-2024 Non-patient / Non-visit [facility] Work Phone: Start: 06-15-2024 End: 06-15-2024 [facility] Work Phone: Start: 06-15-2024 End: 06-15-2024 ambulatory Dallin Pace [facility] Work Phone: Start: 06-01-2024 End: 06-01-2024 ambulatory [facility] Work Phone: Start: 06-01-2024 End: 06-01-2024 Patient encounter procedure [facility] ysician [facility] Vascular Surgery Work Phone: Start: 05-24-2024 End: 05-24-2024 Subsequent hospital visit by physician Rhea Neri Echo/Vasc Room 2 [facility] Comment on above: Dizziness Start: 05-24-2024 End: 05-24-2024 ambulatory [facility] Start: 04-26-2024 End: 04-26-2024 Office outpatient visit 25 minutes Jeyson Huang MD Work Phone: [facility] Comment on above: Benign essential hyp ertension; Primary hypertension; Type 2 diabetes mellitus with other specified complication, with long-term current use of insulin (Multi); Abdominal aortic aneurysm (AAA) without rupture, unspecified part ([facility]); Mixed hyperlipidemia; Stage 3a chronic kidney disease (Multi); Arteriosclerosis of coronary artery; Family history of aneurysm; Gastroesophageal reflux disease with esophagitis, unspecified whether hemorrhage; Coronary arteriosclerosis in [place] artery; Medication course changed; Never smoked cigarettes; Dizziness Start: 04-26-2024 End: 04-26-2024 ambulatory [facility] Ambulatory Start: 10-06-2023 End: 10-06-2023 ambulatory Dallin Pace Other [employer] Other Start: 10-06-2023 Telephone encounter Dallin Pace [facility] Start: 07-23-2023 End: 07-23-2023 ambulatory Dallin Pace Other [employer] Other Start: 07-23-2023 Office outpatient vi sit 25 minutes Dallin Pace [facility] Start: 07-10-2023 End: 07-10-2023 ambulatory Dallin Pace Other [employer] Other Start: 07-10-2023 Telephone encounter Dallin MOORE Sanjeev [facility] Start: 07-02-2023 End: 07-02-2023 ambulatory Dallin Pace Other [employer] Other Start: 07-02-2023 Telephone encounter Dallin MOORE Sanjeev [facility] Start: 06-24-2023 End: 06-24-2023 Subsequent hospital visit by physician Rhea Neri Echo/Vasc Room 2 [facility] Comment on above: Benign hypertension; Atherosclerosis of [place] coronary artery, unspecified whether angina present, unspecified whether [place] or transplanted heart Start: 06-24-2023 End: 06-24-2023 ambulatory [facility] Start: 06-24-2023 End: 06-24-2023 Encounter for general adult medical examination without abnormal findings [facility] Start: 05-07-2023 Telephone encounter Dallin Pace Work Phone: [facility] 250 DO Work Phone: Start: 05-05-2023 Office outpatient vi sit 25 minutes Dlalin Pace Work Phone: [facility] 250 DO Work Phone: Start: 05-05-[address] Jeyson Zhaoi ty: Start: 01-20-2023 End: 01-20-2023 ambulatory Dallin Pace Other [employer] [employer] Other Start: 01-20-2023 Office outpatient vi sit 25 minutes Dallin Pace [facility] Start: 01-15-2023 End: 01-16-[address] DALLIN PACE Facility:[facility] Start: 12-10-2022 End: 12-10-2022 ambulatory Dallin Pace Other [employer] Other Start: 12-10-2022 Telephone encounter Dallin Pace [facility] Start: 12-03-2022 End: 12-03-2022 ambulatory Dallin Pace Other [employer] Other Start: 12-03-2022 Telephone encounter Dallin Pace [facility] Start: 10-21-2022 End: 10-21-2022 ambulatory Dallin Pace Other [employer] Other Start: 10-21-2022 Office outpatient vi sit 25 minutes Dallin Pace [facility] Start: 10-04-2022 End: 10-04-2022 ambulatory Dallin Pace Other [employer] Other Start: 10-04-2022 Telephone encounter Dallin Pace [facility] Start: 09-24-2022 End: 09-24-2022 ambulatory Dallin Pace Other [employer] Other Start: 09-24-2022 Telephone encounter Dallin Pace [facility] Start: 09-16-2022 End: 09-16-2022 ambulatory Dallin Pace Other [employer] Other Start: 09-16-2022 Telephone encounter Dallin Pace [...] screening Ava Pace Other Percutaneous coronary intervention eBrt HENLEY Percutaneous translu heidi coronary angioplasty Dallin Domingo Sanjeev Work Phone: Tonsillectomy Dallin Chayo buchanan Work Phone: Tonsillectomy and adenoidectomy Bert HENLEY Plan of Treatment Date Care Activity Detail Author Start: 10-28-2024 End: 10-28-2024 Patient encounter procedure 10/28/2024 11:30 AM EST Office Visit [address] [address] Jeyson Huang MD [address] [facility] [address] [place] [address] [facility] Start: 05-24-2024 End: 05-24-2024 Patient encounter procedure 05/24/2024 9:45 AM EDT Appointment [address] [address] [facility] Start: 05-09-2024 COVID-19 Vaccine () COVID-19 Vaccine ( season) [facility] Start: 05-09-2024 Influenza vaccination Influenza Vacc ine (#1) [facility] Start: 04-26-2024 End: 04-26-2026 US.doppler Carotid arteries - bilateral Vascular US Carotid Artery Duplex Bilateral Vascular Ultrasound Routine Dizziness Expected: 04/26/2024 (Approximate), Expires: 04/26/2026 [facility] Service Area Work Phone: Comment on above: Expected: 04/26/2024 (Approximate), Expires: 04/26/2026 Start: 04-26-2024 FUV, Provider: Jeyson Huang, Status: Pen, Time: 11:30 AM FUV, Provider: Jeyson Huang, Status: Pen, Time: 11:30 AM [facility] 250 DO Work Phone: Start: 04-26-2024 End: 04-26-2024 Patient encounter procedure 04/26/2024 11:30 AM EDT Office Visit [facility] [address] [facility] [address] [place] [address] Jeyson Huang MD [address] [facility] [address] [place], [place] [id number] [facility] Start: 05-09-2023 COVID-19 Vaccine ( season) COVID-19 Vaccine ( season) [facility] Start: 05-09-2023 Influenza vaccination Influenza Vacc ine (#1) [facility] Start: 09-13-2021 Urine screening for protein Diabetes: Urine Protein Screening [facility] Start: 04-10-2021 Hemoglobin A1c measurement Diabetes: Hemoglobin A1C [facility] Start: 2005 RSV patient s and/or patients aged 60+ years (1 - 1-dose 60+ series) RSV patients and/or patients aged 60+ years (1 - 1-dose 60+ series) [facility] Start: 1995 Zoster Vaccines (1 o f 2) Zoster Vaccines (1 of 2) [facility] Start: 1967 DTaP/Tdap/Td Vaccine s (1 - Tdap) DTaP/Tdap/Td Vaccines (1 - Tdap) [facility] Start: 1964 Urine screening for protein Diabetes: Urine Protein Screening [facility] Start: 1963 Hepatitis C screening Hepatitis C Sc reening [facility] Start: 1955 Diabetic foot examination Diabetes: Foot Exam [facility] Start: 1955 Glaucoma screening Diabetes: R etinopathy Screening [facility] Start: 1951 Pneumococcal Vaccine : 65+ Years (1 - PCV) Pneumococcal Vaccine: 65+ Years (1 - PCV) [facility] Start: 1951 Pneumococcal Vaccine : 65+ Years (1 of 2 - PCV) Pneumococcal Vaccine: 65+ Years (1 of 2 - PCV) [facility] Start: 01-27-1946 COVID-19 Vaccine (#1) COVID-19 Vacci ne (#1) [facility] Start: 1945 Lipid panel Lipid Panel [facility] Start: 1945 Medicare Annual Wellness Visit Medicare Annual Wellness Visit (AWV) [facility] US scan of abdominal aorta [facility] US.doppler Carotid arteries - bilateral [facility] End: 05-24-2024 US.doppler Carotid arteries - bilateral [facility] Service Area Work Phone: Comment on above: Once for 1 Occurrenc es starting 05/24/2024 until 05/24/[address] [facility] Immunizations Immunization Date Immunization Notes Care Provider Rohit mulligan NEGATED: Highlighted row has not occurred!12-12-2021 influenza virus vaccine, unspecified formulation Bert HENLEY General Surgery [place] Payers Date Payer Category Payer Self-pay 2023 [facility] MEDICARE [id number] 2023-Present [address] [place] [address] [id number] 1959 Medicare [id number] 1959 Medicare [id number] 1945 Unknown [id number] 1945 Unknown [id number] [id number] 1945 Unknown [id number] [id number] 1945 Unknown [id number] [id number] 1945 Unknown [id number] [id number] 1945 Unknown [id number] [id number] 1945 Unknown [id number] [id number] 1945 Unknown [id number] [id number] 1945 Unknown [id number] [id number] 1945 Unknown [id number] [id number] 1945 Unknown [id number] [id number] 1945 Unknown [id number] [id number] 1945 Unknown [id number] [id number] Medicare [id number] [id number] Unknown [facility] Unknown [id number] Social History Date Type Detail Facility Start: 12-12-2021 End: 11-20-2023 Tobacco smoking status Never smoked tobacco (finding) [facility] [place] Tobacco smoking status Never Gener [facility] [place] Start: 04-26-2024 Sex Assigned At Male G [facility] [place] Start: 04-26-2024 No alcohol use No alcohol use -Nor [facility] 250 DO Work Phone: Comment on above: 1 pot of coffee gary y; Tobacco smoking stat [facility] Tobacco smoking consumption unknown [facility] Work Phone: Start: 1945 Sex Assigned At Not on file [facility] Work Phone: Start: 06-14-2023 End: 05-24-2024 Exposure to SARS-CoV-2 (event) Not sure [facility] Start: 1945 Sex Assigned At Male F [facility] Start: 07-26-2024 Sex Male (finding) [facility] Start: 11-20-2023 Tobacco use and exposure Smokeless tobacco non-user [facility] Work Phone: Start: 04-26-2024 Alcoholic beverage intake Lifetime non-drinker (finding) [facility] Work Phone: Medical Equipment Procedure Code [...] diabetes mellitus with hyperglycemia acute July 11:02am [facility] Work Phone: [phone]) 758-521608-19-2024 History of Present illness Narrative* Jeyson Huang [...] work History so Far : 1. Atherosclerotic [place] vessel coronary artery disease-patient says that whenever [...] thrombus measured 3.5 cm in length. The manager sound requested a repeat study in 3 years. [...] Medications Medication Instructions albuterol 90 mcg/actuation aerosol [facility] breath activated inhaler 2 puffs, inhalation, [...] 04/26/2024 Dizziness 04/26/2024 Abdominal aortic aneurysm (AAA) ([facility]) 07/02/2023 Asthma ([facility]) 07/02/2023 Arteriosclerosis of coronary artery 07/02/2023 Diabetes [...] Benign essential hypertension 02/27/2019 Coronary arteriosclerosis in [place] artery 02/27/2019 Assessment: 1. Benign essential hypertension Follow Up In Cardiology 2. Primary hypertension 3. Type 2 diabetes mellitus with other specified complication, with long-term current use of insulin (Multi) 4. Abdominal aortic aneurysm (AAA) without rupture, unspecified part ([facility]) Referral to VascularMedicine 5. Mixed hyperlipidemia 6. Stage 3a chronic kidney disease (Multi) 7. Arteriosclerosis of coronary artery 8. Family history of aneurysm Referral to Vascular Medicine 9. Gastroesophageal reflux disease with esophagitis, unspecified whether hemorrhage 10. Coronary arteriosclerosis in [place] artery 11. Medication course changed 12. Never [...] exam, discussion and plan. [facility] Work Phone: 1([phone]) 791-903008-19-2024 Instructions* Patient Instructions* Mari Huntley LPN - [...] Provided instructions on exercise. [facility] Work Phone: [phone]) 814-990511-15-2023 Evaluation note* Encounter Date Diagnosis Assessment Notes [...] use, the patient reduces the risk for ID, CVA, HTN, cardiac dysrhythmias and sudden cardiac deaths.The patient is also aware of the association between MARIA T and morning headaches, daytime somnolence, fatigue and obesity, which also has been improved with continued use.The patient is compliant with treatment, wearing the equipment every night for greater than 4 hours.The patient is instructed to continue use of the CPAP for MARIA T treatment. 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 (ICD-10 - Z79.4) Jul, Gastroesophageal ref lux disease with esophagitis without hemorrhage (ICD-10 - K21.00) [employer] Other 11-02-2023 Evaluation note* Encounter Date Diagnosis Assessment Notes Treatment Notes Treatment Clinical Notes Jul, Type 2 diabetes mellitus with hyperglycemia (ICD-10 - E11.65) [employer] Other 10-25-2023 Evaluation note* Encounter Date Diagnosis Assessment Notes Treatment Notes Treatment Clinical Notes Jun, Infrarenal abdominal aortic aneurysm (AAA) without rupture (ICD-10 - I71.43) CT 3.2cm - 2022 [employer] Other 05-15-2023 Evaluation note* Encounter Date Diagnosis [...] use, the patient reduces the risk for ID, CVA, HTN, cardiac dysrhythmias and sudden cardiac deaths.The patient is also aware of the association between MARIA T and morning headaches, daytime somnolence, fatigue and obesity, which also has been improved with continued use.The patient is compliant with treatment, wearing the equipment every night for greater than 4 hours.The patient is instructed to continue use of the CPAP for MARIA T treatment. January, FPC (current) use of insulin (ICD-10 - Z79.4) [employer] Other 04-04-2023 Evaluation note* Encounter Date Diagnosis Assessment Notes Treatment Notes Treatment Clinical Notes Dec, Type 2 diabetes mellitus with hyperglycemia (ICD-10 - E11.65) [employer] Other 02-13-2023 Evaluation note* Encounter Date Diagnosis [...] use, the patient reduces the risk for ID, CVA, HTN, cardiac dysrhythmias and sudden cardiac [...] - N40.1) Yearly PSA, symptoms tolerable. Oct, FPC (current) use of insulin (ICD-10 - Z79.4) Oct, Screening PSA (prost ate specific antigen) (ICD-10 - Z12.5) [employer] Other 04-06-2022 NoteChief Complaint consultation for colonoscopy [...] no abdominal complaints; last colonoscopy 2013 in [place], had several tubular adenomas removed; only abdominal [...] E&M of New Patient Low 30-44 Min [id number] Follow-up No qualifying data available Problem List/Past [...] Tobacco Use:. Never Smokel (more content not included)...[facility]Result Comment: Electronically Signed By: KALE GREEN, Bert Woodall\Date and Time Signed: 12/12/21 21:56 EDTEvaluation + Plan note No data available for this section General Surgery [place] Evaluation noteNo [email or web address] Other Evaluation note* Diagnosis Benign hypertension Essential hypertension, benign Atherosclerosis of [place] coronary artery, unspecified whether angina present, unspecified whether [place] or transplanted heart documented in this encounter [facility] Work Phone: Evaluation noteNo assessment information available [facility] Work Phone: Evaluation note* Diagnosis Onset Date Resolution Status Abdominal aortic aneurysm, without rupture, unspecifie d acute Occlusion and stenosis of bilateral carotid arteries acute [facility] Work Phone: Evaluation note* Diagnosis Onset Date Resolution Status Abdominal aortic aneurysm, without rupture, unspecifie d acute Occlusion and stenosis of bilateral carotid arteries acute Abdominal aortic aneurysm, without rupture, unspecifie d acute [facility] Work Phone: Evaluation note* Diagnosis Benign essential hypertension Essential hypertension, benign Primary hypertension Unspecified essential hypertension Type 2 diabetes mellitus with other specified complication, with long-term current use of insulin (Multi) Abdominal aortic aneurysm (AAA) without rupture, unspecified part ([facility]) Mixed hyperlipidemia Stage 3a chronic kidney disease (Multi) Arteriosclerosis of coronary artery Family history of aneurysm Family history of other condition Gastroesophageal reflux disease with esophagitis, unspecified whether hemorrhage Coronary arteriosclerosis in [place] artery Medication course changed Never smoked cigarettes Dizziness Dizziness and giddiness documented in this encounter [facility] Work Phone: Evaluation note* Diagnosis Dizziness Dizziness and giddiness documented in this encounter [facility] Work Phone: History general Narrative - [...] stent insertion Hospitalization History see surgical history [employer] Other History of Present illness Narrative* 77-year-old is accompanied by to the office, here to establish cardiology care. * Has history of atherosclerotic [place] vessel coronary artery disease and multiple risk [...] shows normal sinus rhythm at 63 bpm GA interval 162 ms QRS duration 84 ms QTc 407 ms, there is evidence of left atrial abnormality. * History so far : * 1. Atherosclerotic [place] vessel coronary artery disease-patient says that whenever [...] for allowing us to participate in Mr. Hmalin's care, please do not hesitate to call if further questions arise, * Sincerely, * Jeyson Huang MD [facility] [address] DO Work Phone: History of Present illness Narrative* 77-year-old is accompanied by to the office, here to establish cardiology care. * Has history of atherosclerotic [place] vessel coronary artery disease and multiple risk [...] shows normal sinus rhythm at 63 bpm GA interval 162 ms QRS duration 84 ms QTc 407 ms, there is evidence of left atrial abnormality. * History so far : * 1. Atherosclerotic [place] vessel coronary artery disease-patient says that whenever [...] arise, * Sincerely, * Jeyson Huang MD [facility] 250 DO Work Phone: Hospital Discharge instructions No data available for this section [facility] [place] Summary Purpose Family History Unknown Family Member [...] Carotid Artery Duplex Bilateral Jeyson Huang MD [address] [place] [address] Referral ID Status Reason Start Date Expiration Date Visits Requested Visits Authorized [id number] Authorized Perform Procedure 04/26/2024 04/26/2025 1 1 Specialty Diagnoses / Procedures Referred By Alivia t Referred To Contact Diagnoses Abdominal aortic aneurysm (AAA) without rupture, unspecified part ([facility]) Family history of aneurysm Jeyson Huang MD [address] [place] [address] Referral ID Status Reason Start Date Expiration Date Visits Requested Visits Authorized [id number] Authorized Specialty Services Required 04/26/2024 04/26/2025 1 1 Specialty Diagnoses / Procedures Referred By Conttrudy t Referred To Contact Cardiology Diagnoses Benign essential hypertension Procedures Follow Up In Cardiology Jeyson Huang MD [address] [place] [address] Jeyson Huang MD [address] [facility] [address] [place] [address] Referral ID Status Reason Start Date Expiration Date V isits Requested Visits Authorized [id number] Authorized 04/26/2024 04/26/2025 1 1 Specialty Diagnoses / Procedures Referred By Contac t Referred To Contact Cardiology Diagnoses Benign hypertension Atherosclerosis of [place] coronary artery, unspecified whether angina present, unspecified whether [place] or transplanted heart Procedures Vascular US aorta iliac duplex complete Jeyson Huang MD [address] [facility] [address] [place] [address] Referral ID Status Reason Start Date Expiration Date Visits Requested Visits Authorized [id number] Authorized Perform Procedure 05/25/2023 11/21/2023 1 1 [...] content) DATE CREATED AUTHOR 01/26/2022 Pak Richardson [facility] ical Center DATE CREATED AUTHOR AUTHOR'S ORGANIZ ATION 01/19/2023 [facility] DATE CREATED AUTHOR AUTHOR'S ORGANIZ ATION 05/05/2023 [facility] ical Center DATE CREATED AUTHOR AUTHOR'S ORGANIZ ATION 05/07/2023 [employer] DATE CREATED AUTHOR AUTHOR'S ORGANIZ ATION 05/30/2024 [facility] DATE CREATED AUTHOR AUTHOR'S ORGANIZ ATION 06/02/2024 [facility] DATE CREATED AUTHOR AUTHOR'S ORGANIZ ATION 06/26/2024 [facility] ysician Group REASON FOR VISIT (unrecogniz ed section and content) Specialty Diagnoses / Procedures Referred By Alivia leigh Referred To Contact Cardiology Diagnoses Benign hypertension Atherosclerosis of [place] coronary artery, unspecified whether angina present, unspecified whether [place] or transplanted heart Procedures Vascular US aorta iliac duplex complete Jeyson Huang MD [address] [facility] [address] [place] [address] Referral ID Status Reason Start Date Expiration Date Visits Requested Visits Authorized [id number] Authorized Perform Procedure 05/25/2023 11/21/2023 1 1 Reason Comments Annual Exam Specialty Diagnoses / Procedures Referred By Alivia leigh Referred To Contact Cardiology Diagnoses Dizziness Procedures Vascular US Carotid Artery Duplex Bilateral Jeyson Huang MD [address] [place] [address] [address] [place] [address] Referral ID Status Reason Start Date Expiration Date Visits Requested Visits Authorized [id number] Authorized Perform Procedure 04/26/2024 04/26/2025 1 1 Care Teams (unrecognized sec tion and content) Edge Stitcher Relationship Specialty Start Date End Date Dallin Pace DO [facility] General 05/05/23 Team Status: Active Member [...] July 26, 2024 End: July 26, 2024 Edge Stitcher Relationship Specialty Start Date End Date Dallin Pace DO [address] [place] [address] [facility] 05/05/23 Edge Stitcher Relationship Specialty Start Date End Date Dallin Pace DO [address] [place] [address] [facility] 05/05/23 Goals (unrecognized section and content) Goals [...] BE BASED ON THE PRIMARY CLINICAL RECORDS. [employer] [facility]. provides no warranty or guarantee of the accuracy or completeness of information in this document.
[2024-11-21 00:35] VITALS: O2SAT 98
[2024-11-21 00:35] LABS: Glucometer 107 mg/dL (74-106)
--- NOTE | 2024-11-21 00:55 | ED_ITS ---
HPI HPI - General Adult General Chief complaint: Recheck/Abnormal Lab/Rx Stated complaint: low blood sugar Time Seen by Provider: 11/21/24 00:45 Source: patient and family Mode of arrival: walk-in Limitations: no limitations History of Present Illness HPI narrative: IDDM. takes 75/25 40U bid. states he was seen here a couple of days ago and was taking 75/25 50U bid. States he was advised to decrease to 40 bid. Tonight BS drop to 46. He has been eating and drinking to get it back up. It would increase and then drop down again. He is currently asymptomatic. No chest pain or nausea. States he has been busy and more active because he is moving Related Data Home Medications ?Medication ?Instructions ?Recorded ?Confirmed linagliptin 2.5 mg-metformin 1,000 tab 11/18/24 mg tablet (Jentadueto) Allergies Allergy/AdvReac Type Severity Reaction Status Date / Time No Known Drug Allergies Allergy Verified 11/21/24 00:37 Opioid HPI Opioid Management Most Recent Opioid Data: No Data to Display Review of Systems ROS Status of ROS 10 or more systems reviewed and unremark able except as noted in history and below PFSH PFS Social History Smoking status: Current every day smoker Little interest or pleasure in doing things: not at all Feeling down, depressed, or hopeless: not at all Exam Constitutional Vital Signs, click to edit/add: Last Vital Signs Temp 98.9 F 11/21/24 00:31 Pulse 88 11/21/24 00:31 Resp 16 11/21/24 00:31 BP 186/98 H 11/21/24 00:31 Pulse Ox 98 11/21/24 00:35 O2 Del Method Room Air 11/21/24 00:35 Common normals: no apparent distress, average body habitus, oriented x3, no limitations, healthy appearing and alert [facility] Common normals: normocephalic Respiratory Common normals: normal respiratory effort, no retractions, no use of accessory muscles and clear to auscultation bilaterally Cardio Common normals: regular rate, regular rhythm, S1 normal heart sound and S2 normal heart sound GI Common normals: Normal to inspection, nondistended, normoactive bowel sounds present, soft to palpation and non-tender Extremity Common normals: normal to inspection and full ROM Neuro Common normals: oriented x3, CN's II-XII intact bilaterally, moves all extremities and no focal motor deficits Psych Appearance: grossly normal Course Vital Signs Vital signs: Vital Signs Temperature 98.9 F 11/21/24 00:31 Pulse Rate 88 11/21/24 00:31 Respiratory Rate 16 11/21/24 00:31 Blood Pressure 186/98 H 11/21/24 00:31 Pulse Oximetry 97 11/21/24 00:31 Oxygen Delivery Method Room Air 11/21/24 00:31 Temperature 98.9 F 11/21/24 00:31 Pulse Rate 88 11/21/24 00:31 Respiratory Rate 16 11/21/24 00:31 Blood Pressure 186/98 H 11/21/24 00:31 Pulse Oximetry 98 11/21/24 00:35 Oxygen Delivery Method Room Air 11/21/24 00:35 Medical Decision Making MDM Narrative Medical decision making narrative: patient presents with hypoglycemia. He did eat and drink before coming to the ED. His BS has increased here without further intervention. Discussed plan to decrease 75/25 to 40U AM and 25hs until he is seen by his PCP next week Lab Data Labs: Lab Results 11/21/24 11/21/24 Range/Units 00:33 01:14 WBC 7.2 (4.0-11.0) 10^3/uL RBC 3.50 L (4.70-6.10) 10^6/uL Hgb 11.0 L (14.0-18.0) g/dL Hct 33.9 L (42.0-54.0) % MCV 96.9 H (80.0-94.0) fL MCH 31.4 (25.9-34.0) pg MCHC 32.4 (29.9-35.2) g/dL RDW 12.8 (11.0-15.0) % Plt Count 151 (150-450) 10^3/uL MPV 11.1 (9.5-13.5) fL Neut % (Auto) 61.4 (43.0-75.0) % Lymph % (Auto) 22.1 (20.5-60.0) % [place] % (Auto) 12.7 H (1.7-12.0) % Eos % (Auto) 2.9 (0.9-7.0) % Baso % (Auto) 0.8 (0.2-2.0) % Neut # (Auto) 4.4 (1.4-6.5) 10^3/uL Lymph # (Auto) 1.6 (1.2-3.8) 10^3/uL [place] # (Auto) 0.9 H (0.3-0.8) 10^3/uL Eos # (Auto) 0.2 (0.0-0.7) 10^3/uL Baso # (Auto) 0.1 (0.0-0.1) 10^3/uL Abs Immat Gran (auto) 0.01 (0.00-0.03) 10^3/uL Imm/Tot Granulo (auto) 0.1 (0.0-0.5) % Sodium 142 (136-145) mmol/L Potassium 4.7 (3.5-5.1) mmol/L Chloride 107 (98-107) mmol/L Carbon Dioxide 24.2 (21.0-32.0) mmol/L Anion Gap 15.5 BUN 29.0 H (7.0-18.0) mg/dL Creatinine 1.55 H (0.70-1.30) mg/dL Est GFR ( Amer) 53 L (>=60 mL/min/1.73m^2) Est GFR (Non-Af Amer) 43 L (>=60 mL/min/1.73m^2) BUN/Creatinine Ratio 18.7 Glucose 156 H (74-106) mg/dL Calcium 8.7 (8.5-10.1) mg/dL POC Glucose 107 H (74-106) mg/dL Discharge Plan Discharge Chief Complaint: Recheck/Abnormal Lab/Rx Clinical Impression: Hypoglycemia Patient Disposition: Home, Self-Care Prescriptions / Home Meds: No Action Jentadueto 2.5-1,000 mg tablet Print Language: [place] Instructions: Hypoglycemia in a Person with Diabetes (ED) Referrals: Dallin Pace DO [Primary Care Provider] - 1 week
[2024-11-21 01:29] LABS: Basophils Absolute Auto 0.1 10^3/uL (0.0-0.1); Basophils Percent Auto 0.8 % (0.2-2.0); Eosinophils Absolute Auto 0.2 10^3/uL (0.0-0.7); Eosinophils Percent Auto 2.9 % (0.9-7.0); Hematocrit 33.9 % (42.0-54.0); Immature Granulocytes Abs Auto 0.01 10^3/uL (0.00-0.03); Immature Granulocytes Pct Auto 0.1 % (0.0-0.5); Lymphocytes Absolute Auto 1.6 10^3/uL (1.2-3.8); Lymphocytes Percent Auto 22.1 % (20.5-60.0); Mean Corpuscular HGB Conc 32.4 g/dL (29.9-35.2); Mean Corpuscular Hemoglobin 31.4 pg (25.9-34.0); Mean Corpuscular Volume 96.9 fL (80.0-94.0); Mean Platelet Volume 11.1 fL (9.5-13.5); Monocytes Absolute Auto 0.9 10^3/uL (0.3-0.8); Monocytes Percent Auto 12.7 % (1.7-12.0); Neutrophils Absolute Auto 4.4 10^3/uL (1.4-6.5); Neutrophils Percent Auto 61.4 % (43.0-75.0); Platelet Count 151 10^3/uL (150-450); Red Cell Distribution Width 12.8 % (11.0-15.0); White Blood Count 7.2 10^3/uL (4.0-11.0)
[2024-11-21 01:31] LABS: Anion Gap 15.5; BUN Creatinine Ratio 18.7; Calcium 8.7 mg/dL (8.5-10.1); Carbon Dioxide 24.2 mmol/L (21.0-32.0); Chloride 107 mmol/L (98-107); Estimated GFR (African America 53 (>=60 mL/min/1.73m^2); Estimated GFR (Non-African Ame 43 (>=60 mL/min/1.73m^2); Glucose 156 mg/dL (74-106); Potassium 4.7 mmol/L (3.5-5.1); Sodium 142 mmol/L (136-145)
[2024-11-21 01:57] VITALS: BP 154/61; PULSE 58; O2SAT 97
== END 2024-11-21 02:00 | disposition home or self-care (01) ==
PROVIDERS: Emergency Provider Internal Medicine; PCP Internal Medicine
DX: E11.649 Type 2 diabetes mellitus with hypoglycemia without coma (principal); F17.200 Nicotine dependence, unspecified, uncomplicated; Z79.4 Long term (current) use of insulin; Z79.84 Long term (current) use of oral hypoglycemic drugs
CPT/HCPCS: 36415; 80048; 85025; 99283